=== PATIENT | male | born 1930 | race Caucasian/White ===

== ENCOUNTER → 2019-01-24 | Outpatient (CLI) | payer MEDICARE, OTHER ==
[2019-01-24 23:39] LABS: Basophils % (A) 0 %; Eosinophils % (A) 0 %; HGB 13.4 gm/dL (13.0-17.5); Lymphocytes # (A) 0.4 k/uL (1.0-4.8); Lymphocytes % (A) 6 %; MCH 32.4 pg (25.0-35.0); MCHC 32.6 g/dL (31.0-37.0); MCV 99.5 fL (80.0-100.0); Mean Platelet Volume 9.7; Monocytes # (A) 0.7 k/uL (0-1.0); Monocytes % (A) 10 %; Neutrophils # (A) 5.6 k/uL (1.3-7.7); Neutrophils % (A) 82 %; Platelet Count 149 k/uL (150-450); RBC 4.12 m/uL (4.30-5.90); RDW 13.2 % (11.5-15.5); WBC 6.8 k/uL (3.8-10.6)
[2019-01-25 00:11] LABS: Albumin 3.1 g/dL (3.5-5.0); Calcium 8.5 mg/dL (8.4-10.2); Potassium 4.5 mmol/L (3.5-5.1); Total Bilirubin 0.4 mg/dL (0.2-1.3); Total Protein 5.8 g/dL (6.3-8.2)
== END ==
LOC: LABPRL 23:03 → LABMARSNF 23:03 → EDSTATUS 23:05
PROVIDERS: ATTEND Internal Medicine
DX: J09.X2 Influenza due to identified novel influenza A virus with other respiratory manifestations (principal)
CPT/HCPCS: 36415; 80053; 85025

== ENCOUNTER 2020-12-08 12:59 | Inpatient (IN) | payer OTHER, MEDICARE ==
--- NOTE | 2020-12-08 13:09 | ED ---
General Adult HPI - General Stated complaint: DEVIN Time Seen by Provider: 12/08/20 12:59 Source: patient, RN notes reviewed, old records reviewed - History of Present Illness Initial comments: This is an 89-year-old male with a past medical history significant for heart failure atrial fibrillation schizophrenia kidney disease and recently diagnosed with COVID on November 16. Patient has had some difficulty breathing ever since he was diagnosed with codeine but over the last few hours he is gotten considerably worse according to staff the prison. Patient was given a breathing treatment and did bring his oxygenation up but they had to eventually increase his oxygenation from 3 L to 5 L to keep him in the 90s pulse ox. Patient himself denies any chest pain or difficulty breathing. Patient denies any cough. Patient denies any abdominal pain patient denies nausea vomiting diarrhea. - Related Data Home Medications Medication Instructions Recorded Confirmed Digoxin [Lanoxin] 0.125 mg PO DAILY@0600 04/01/14 12/08/20 Acetaminophen Tab [Tylenol] 650 mg PO Q4H PRN 12/08/20 12/08/20 Albuterol Sulfate [Ventolin HFA] 2 puff INHALATION RT-QID 12/08/20 12/08/20 Atorvastatin [Lipitor] 40 mg PO HS@209912/08/20 12/08/20 Bisoprolol [Zebeta] 5 mg PO HS@209912/08/20 12/08/20 Caldesene Powder 1 applic TOPICAL BID 12/08/20 12/08/20 Cyanocobalamin [Vitamin B-12] 500 mcg PO DAILY@0800 12/08/20 12/08/20 Dulaglutide [Trulicity] 0.75 mg SQ WE@0812/08/20 12/08/20 Ergocalciferol [Vitamin D2 (1250 1,250 mcg PO TU@0800 12/08/20 12/08/20 Mcg = 73691 Iu)] Furosemide [Lasix] 40 mg PO DAILY@0800 12/08/20 12/08/20 Glucerna Shake 120 ml PO TID@0800,1200,1700 12/08/20 12/08/20 Hydrocortisone Cream 1 applic TOPICAL Q12H PRN 12/08/20 12/08/20 [Hydrocortisone 2.5% Cream] INSULIN LISPRO (humaLOG) [humaLOG] 16 unit SQ TID@0800,1100,1700 12/08/20 12/08/20 INSULIN LISPRO (humaLOG) [humaLOG] See Protocol SQ ACHS 12/08/20 12/08/20 Insulin Glargine,Hum.rec.anlog 74 units SQ HS@209912/08/20 12/08/20 [Toumatt Solostar] Ipratropium-Albuterol Nebulize 3 ml INHALATION RT-QID 12/08/20 12/08/20 [Duoneb 0.5 mg-3 mg/3 ml Soln] Levofloxacin [Levaquin] 250 mg PO DAILY@1200 12/08/20 12/08/20 Linagliptin [Tradjenta] 5 mg PO DAILY@0800 12/08/20 12/08/20 Magnesium Hydroxide [Milk of 7,200 mg PO Q48H PRN 12/08/20 12/08/20 Magnesia Concentrate] Melatonin 1 mg PO HS@209912/08/20 12/08/20 Na Phos,M-B/Na Phos,Di-Ba [Fleet 133 ml RECTAL DAILY PRN 12/08/20 12/08/20 Adult] [place]-3 Acid Ethyl Esters [Lovaza] 2 gm PO BID@0800,1700 12/08/20 12/08/20 Ondansetron [Zofran] 4 mg PO Q6H PRN 12/08/20 12/08/20 Tamsulosin [Flomax] 0.4 mg PO DAILY@0800 12/08/20 12/08/20 Warfarin Sodium 4 mg PO MOWE@169912/08/20 12/08/20 Warfarin [Coumadin] 2 mg PO HS@17012/08/20 12/08/20 Warfarin [Coumadin] 3 mg PO SUTUTHFRSA@1700 12/08/20 12/08/20 bisacodyL [Bisacodyl] 10 mg RECTAL DAILY PRN 12/08/20 12/08/20 guaiFENesin [guaiFENesin Oral 200 mg PO Q4H PRN 12/08/20 12/08/20 Solution] lisinopriL [Zestril] 20 mg PO HS@212912/08/20 12/08/20 Allergies Allergy/AdvReac Type Severity Reaction Status Date / Time adhesive Allergy Unknown Verified 12/08/20 14:17 Review of Systems ROS Statement: Those systems with pertinent positive or pertinent negative responses have been documented in the HPI. ROS Other: All systems not noted in ROS Statement are negative. 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 History of Any Multi-Drug Resistant Organisms: None Reported Past Surgical History: Joint Replacement, Orthopedic Surgery Additional Past Surgical History / Comment(s): BILAT HIPS REPLACED, RIGHT KNEE ARTHROPLASTY Past Anesthesia/Blood Transfusion Reactions: No Reported Reaction Past Psychological History: No Psychological Hx Reported, Schizophrenia Additional Psychological History / Comment(s): 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 fib General Exam - General Exam Comments Initial Comments: GENERAL: Patient is well-developed and well-nourished. Patient is nontoxic and well-h ydrated and is in distress. ENT: Neck is soft and supple. No significant lymphadenopathy is noted. Oropharynx is clear. Moist mucous membranes. Neck has full range of motion without eliciting any pain. EYES: The sclera were anicteric and conjunctiva were pink and moist. Extraocular movements were intact and pupils were equal round and reactive to light. Eyelids were unremarkable. PULMONARY: Unlabored respirations. Patient has bilateral history wheezing.. Scattered crackles left base CARDIOVASCULAR: There is a regular rate and rhythm without any murmurs gallops or rubs. ABDOMEN: Soft and nontender with normal bowel sounds. SKIN: Skin is clear with no lesions or rashes and otherwise unremarkable. NEUROLOGIC: Patient is alert and oriented x3. Cranial nerves II through XII are grossly intact. Motor and sensory are also intact. Normal speech, volume and content. Symmetrical smile. MUSCULOSKELETAL: Normal extremities with adequate strength and full range of motion. LYMPHATICS: No significant lymphadenopathy is noted PSYCHIATRIC: Normal psychiatric evaluation. Course Vital Signs 12/08/20 12/08/20 12/08/20 13:05 13:50 14:45 Temperature 99.2 F Pulse Rate 96 85 78 Respiratory 24 24 22 Rate Blood Pressure 139/71 134/84 131/77 O2 Sat by Pulse 96 97 94 L Oximetry Medical Decision Making - Medical Decision Making EKG shows atrial fibrillation 95 bpm QRS is 94 QT interval 326 QTC is 49. Patient's EKG shows no ST segment elevation or depression. X-ray shows multiple areas of infiltrate consistent with COVID pneumonia I started the patient on Decadron and continue the Decadron on the floor. I admitted the patient after I spoke with Dr. Mike he agreed to accept the admission I wrote admitting orders I consulted Dr. Blank as well. - Lab Data Result diagrams: 12/08/20 13:16 12/08/20 13:16 Lab Results 12/08/20 12/08/20 12/08/20 Range/Units 13:16 13:16 13:16 WBC 7.1 (3.8-10.6) k/uL RBC 3.65 L (4.30-5.90) m/uL Hgb 12.1 L (13.0-17.5) gm/dL Hct 36.3 L (39.0-53.0) % MCV 99.5 (80.0-100.0) fL MCH 33.2 (25.0-35.0) pg MCHC 33.4 (31.0-37.0) g/dL RDW 13.9 (11.5-15.5) % Plt Count 175 (150-450) k/uL MPV 9.0 Neutrophils % 78 % Lymphocytes % 12 % Monocytes % 6 % Eosinophils % 2 % Basophils % 1 % Neutrophils # 5.6 (1.3-7.7) k/uL Lymphocytes # 0.8 L (1.0-4.8) k/uL Monocytes # 0.5 (0-1.0) k/uL Eosinophils # 0.1 (0-0.7) k/uL Basophils # 0.0 (0-0.2) k/uL PT (9.0-12.0) sec INR (<1.2) APTT D-Dimer (<0.60) mg/L FEU Sodium 138 (137-145) mmol/L Potassium 5.1 (3.5-5.1) mmol/L Chloride 110 H (98-107) mmol/L Carbon Dioxide 19 L (22-30) mmol/L Anion Gap 9 mmol/L BUN 53 H (9-20) mg/dL Creatinine 1.76 H (0.66-1.25) mg/dL Est GFR (CKD-EPI)AfAm 39 (>60 ml/min/1.73 sqM) Est GFR (CKD-EPI)NonAf 34 (>60 ml/min/1.73 sqM) Glucose 237 H (74-99) mg/dL Plasma Lactic Acid Alec 1.6 (0.7-2.0) mmol/L Calcium 7.5 L (8.4-10.2) mg/dL Total Bilirubin 0.8 (0.2-1.3) mg/dL AST 34 (17-59) U/L ALT 30 (4-49) U/L Alkaline Phosphatase 122 (38-126) U/L Troponin I (0.000-0.034) ng/mL NT-Pro-B Natriuret Pep pg/mL Total Protein 5.6 L (6.3-8.2) g/dL Albumin 2.3 L (3.5-5.0) g/dL 12/08/20 12/08/20 12/08/20 Range/Units 13:16 13:16 14:36 WBC (3.8-10.6) k/uL RBC (4.30-5.90) m/uL Hgb (13.0-17.5) gm/dL Hct (39.0-53.0) % MCV (80.0-100.0) fL MCH (25.0-35.0) pg MCHC (31.0-37.0) g/dL RDW (11.5-15.5) % Plt Count (150-450) k/uL MPV Neutrophils % % Lymphocytes % % Monocytes % % Eosinophils % % Basophils % % Neutrophils # (1.3-7.7) k/uL Lymphocytes # (1.0-4.8) k/uL Monocytes # (0-1.0) k/uL Eosinophils # (0-0.7) k/uL Basophils # (0-0.2) k/uL PT 34.0 H (9.0-12.0) sec INR 3.5 H (<1.2) APTT Cancelled D-Dimer >34.11 H (<0.60) mg/L FEU Sodium (137-145) mmol/L Potassium (3.5-5.1) mmol/L Chloride (98-107) mmol/L Carbon Dioxide (22-30) mmol/L Anion Gap mmol/L BUN (9-20) mg/dL Creatinine (0.66-1.25) mg/dL Est GFR (CKD-EPI)AfAm (>60 ml/min/1.73 sqM) Est GFR (CKD-EPI)NonAf (>60 ml/min/1.73 sqM) Glucose (74-99) mg/dL Plasma Lactic Acid Alec (0.7-2.0) mmol/L Calcium (8.4-10.2) mg/dL Total Bilirubin (0.2-1.3) mg/dL AST (17-59) U/L ALT (4-49) U/L Alkaline Phosphatase (38-126) U/L Troponin I 0.067 H* (0.000-0.034) ng/mL NT-Pro-B Natriuret Pep 3850 pg/mL Total Protein (6.3-8.2) g/dL Albumin (3.5-5.0) g/dL Disposition Clinical Impression: Pneumonia due to COVID-19 virus Disposition: ADMITTED IP TO THIS [facility] Referrals: Shvia Mike MD [Primary Care Provider] - 1-2 days Time of Disposition: 15:22
[2020-12-08 13:27] LABS: Basophils % (A) 1 %; Eosinophils # (A) 0.1 k/uL (0-0.7); Eosinophils % (A) 2 %; HCT 36.3 % (39.0-53.0); HGB 12.1 gm/dL (13.0-17.5); Lymphocytes # (A) 0.8 k/uL (1.0-4.8); Lymphocytes % (A) 12 %; MCH 33.2 pg (25.0-35.0); MCHC 33.4 g/dL (31.0-37.0); MCV 99.5 fL (80.0-100.0); Monocytes # (A) 0.5 k/uL (0-1.0); Monocytes % (A) 6 %; Neutrophils # (A) 5.6 k/uL (1.3-7.7); Neutrophils % (A) 78 %; Platelet Count 175 k/uL (150-450); RBC 3.65 m/uL (4.30-5.90); RDW 13.9 % (11.5-15.5); WBC 7.1 k/uL (3.8-10.6)
[2020-12-08 13:52] LABS: Albumin 2.3 g/dL (3.5-5.0); Calcium 7.5 mg/dL (8.4-10.2); Potassium 5.1 mmol/L (3.5-5.1); Total Bilirubin 0.8 mg/dL (0.2-1.3); Total Protein 5.6 g/dL (6.3-8.2)
--- NOTE | 2020-12-08 14:15 | XR ---
EXAMINATION TYPE: XR chest 2V DATE OF EXAM: 12/08/2020 COMPARISON: Chest x-ray April 04, 2014 HISTORY: Shortness of breath and weakness. TECHNIQUE: Frontal and lateral views of the chest are obtained. FINDINGS: There is cardiomegaly with atherosclerotic thoracic aorta. New bilateral multifocal opacit ies without pleural effusion or pneumothorax. Multilevel spurring in the spine redemonstrated. IMPRESSION: New bilateral multifocal acute opacities. Correlate for Covid-19 infection.
[2020-12-08] MEDS ORDERED: dexAMETHasone 2 MG TAB PO STA (15:00)
[2020-12-08 15:22] LABS: INR 3.5 (<1.2)
[2020-12-08 15:25] LABS: D-Dimer >34.11 mg/L FEU (<0.60)
[2020-12-08] MEDS ORDERED: SODIUM CHLORIDE 0.9% 1,000 ML IV ONE (15:29)
[2020-12-08 16:59] LABS: Glucose,Whole Blood 222 mg/dL (75-99)
[2020-12-08] MEDS ORDERED: ONDANSETRON 4 MG TAB PO PRN (17:52)
[2020-12-08] MEDS ORDERED: ACETAMINOPHEN TAB 325 MG TAB PO PRN (17:52)
[2020-12-08] MEDS ORDERED: MAGNESIUM HYDROXIDE 2,400 MG/10 ML CUP PO PRN (17:52)
[2020-12-08] MEDS ORDERED: guaiFENesin SYRUP 100MG/5ML 200 MG/10 ML CUP PO PRN (17:52)
[2020-12-08] MEDS ORDERED: bisacodyL 10 MG SUPP RECTAL PRN (17:52)
[2020-12-08 18:34] LABS: Digoxin 0.7 ng/mL
[2020-12-08] MEDS: MELATONIN 1 MG TAB PO SCH (19:57)
[2020-12-08] MEDS: BISOPROLOL 5 MG TAB PO SCH (19:57)
[2020-12-08] MEDS: ATORVASTATIN 40 MG TAB PO SCH (19:57)
[2020-12-08] MEDS: AZITHROMYCIN 250 MG in SODIUM CHLORIDE 0.9% 150 ML IVPB SCH (19:57)
[2020-12-08] MEDS: lisinopriL 20 MG TAB PO SCH (19:57)
[2020-12-08] MEDS ORDERED: IPRATROPIUM-ALBUTEROL 3 ML NEB INHALATION SCH (20:00)
[2020-12-08] MEDS: SODIUM CHLORIDE 0.45% 1,000 ML IV SCH (20:25)
[2020-12-08 20:26] LABS: Glucose,Whole Blood 314 mg/dL (75-99)
[2020-12-08] MEDS: INSULIN DETEMIR (LEVEMIR) 100 UNIT/ML SYR SQ SCH (20:31)
[2020-12-08] MEDS ORDERED: NON FORMULARY DRUG (Caldesene Powder 1 APPLIC) TOPICAL SCH (21:00)
[2020-12-08] MEDS: ALBUTEROL HFA INHALER INHALATION SCH (21:24)
[2020-12-09 05:51] LABS: Glucose,Whole Blood 236 mg/dL (75-99)
--- NOTE | 2020-12-09 05:56 | P.HPIM ---
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, vascular dementia, patient was diagnosed with COVID-19 at the senior care and he was taken care off with decadron, ABX along with vitamin supplement, was doing fine till recently when he developed to have increased shortness of breath, along with a drop in his O2 saturation, was seen by myself on Tuesday and he was doing relatively ok, his CXR showed bilateral pneumonia, was on Levaquin for possible secondary bacterial infection and his coumadin was on hold due to coagulopathy, today Nicole the Nurse Practitioner at [facility] saw him and she advised me to send him to the ER for worsening shortness of breath and worsening cough, patient was seen and evaluated in the ER at [facility], CXR showed new bilateral pneumonia suggestive of COVID-19, patient was placed on )2 support and was started on Zithromax 250 mg IVPB daily, and we will be maintaine d on Decadron 6 mg orally daily and we will obtain pulmonary consult, Review of Systems Constitutional: Reports fatigue, Reports night sweats, Reports weakness Eyes: bilateral blurred vision, bilateral decreased vision, denies bulging eye Ears: bilateral: decreased hearing Ears, nose, mouth and throat: Denies dysphagia, Denies neck lump, Denies sore throat Cardiovascular: Reports decreased exercise tolerance, Reports dyspnea on exertion, Reports irregular heart beat, Reports shortness of breath, Denies chest pain, Denies orthopnea, Denies rapid heart beat, Denies syncope Respiratory: Reports congestion, Reports cough, Reports cough with sputum, Reports dyspnea, Reports home oxygen, Reports respiratory infections, Reports wheezing, Denies sleep apnea, Denies snoring Gastrointestinal: Reports nausea, Denies abdominal pain, Denies belching, Denies BRBPR, Denies change in bowel habits, Denies diarrhea, Denies loss of appetite, Denies melena, Denies vomiting Genitourinary: Reports nocturia, Denies dysuria Musculoskeletal: Reports gait dysfunction, Reports morning stiffness Musculoskeletal: absent: ankle pain, ankle stiffness, elbow pain, elbow stiffness, elbow swelling, foot pain, foot stiffness, foot swelling, hand pain, hand stiffness, hand swelling, hip pain, hip stiffness, hip swelling, knee pain, knee stiffness, knee swelling, shoulder pain, shoulder stiffness, shoulder swelling, wrist pain, wrist stiffness, wrist swelling Integumentary: Denies pruritus, Denies rash Neurological: Reports confusion, Reports gait dysfunction, Reports memory loss, Reports weakness, Reports visual changes Psychiatric: Denies anxiety, Denies depression Endocrine: Denies fatigue, Denies weight change Past Medical History Past Medical History: Atrial Fibrillation, Atrial Flutter, Coronary Artery Disease (CAD), COPD, Diabetes Mellitus, GERD/Reflux, Hyperlipidemia, Hypertension, Osteoarthritis (OA), Prostate Disorder, Syncope Additional Past Medical History / Comment(s): 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, 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 History of Any Multi-Drug Resistant Organisms: None Reported Past Surgical History: Joint Replacement, Orthopedic Surgery Additional Past Surgical History / Comment(s): BILAT HIPS REPLACED, RIGHT KNEE ARTHROPLASTY Past Anesthesia/Blood Transfusion Reactions: No Reported Reaction Past Psychological History: No Psychological Hx Reported, Schizophrenia Additional Psychological History / Comment(s): 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 [place] Son(s) Family Medical History: Diabetes Mellitus Additional Family Medical History / Comment(s): A. fib Medications and Allergies Home Medications Medication Instructions Recorded Confirmed Type Digoxin [Lanoxin] 0.125 mg PO DAILY@0600 04/01/14 12/08/20 History Acetaminophen Tab [Tylenol] 650 mg PO Q4H PRN 12/08/20 12/08/20 History Albuterol Sulfate [Ventolin HFA] 2 puff INHALATION RT-QID 12/08/20 12/08/20 His tory Atorvastatin [Lipitor] 40 mg PO HS@209912/08/20 12/08/20 History Bisoprolol [Zebeta] 5 mg PO HS@209912/08/20 12/08/20 History Caldesene Powder 1 applic TOPICAL BID 12/08/20 12/08/20 History Cyanocobalamin [Vitamin B-12] 500 mcg PO DAILY@0800 12/08/20 12/08/20 History Dulaglutide [Trulicity] 0.75 mg SQ WE@0800 12/08/20 12/08/20 History Ergocalciferol [Vitamin D2 (1250 1,250 mcg PO TU@0800 12/08/20 12/08/20 History Mcg = 07121 Iu)] Furosemide [Lasix] 40 mg PO DAILY@0800 12/08/20 12/08/20 History Glucerna Shake 120 ml PO TID@0800,1200,1700 12/08/20 12/08/20 History Hydrocortisone Cream 1 applic TOPICAL Q12H PRN 12/08/20 12/08/20 History [Hydrocortisone 2.5% Cream] INSULIN LISPRO (humaLOG) [humaLOG] 16 unit SQ TID@0800,1100,1700 12/08/20 12/08/20 History INSULIN LISPRO (humaLOG) [humaLOG] See Protocol SQ ACHS 12/08/20 12/08/20 History Insulin Glargine,Hum.rec.anlog 74 units SQ HS@209912/08/20 12/08/20 History [Toujeo Solostar] Ipratropium-Albuterol Nebulize 3 ml INHALATION RT-QID 12/08/20 12/08/20 History [Duoneb 0.5 mg-3 mg/3 ml Soln] Levofloxacin [Levaquin] 250 mg PO DAILY@1200 12/08/20 12/08/20 History Linagliptin [Tradjenta] 5 mg PO DAILY@0800 12/08/20 12/08/20 History Magnesium Hydroxide [Milk of 7,200 mg PO Q48H PRN 12/08/20 12/08/20 History Magnesia Concentrate] Melatonin 1 mg PO HS@2100 12/08/20 12/08/20 History Na Phos,M-B/Na Phos,Di-Ba [Fleet 133 ml RECTAL DAILY PRN 12/08/20 12/08/20 History Adult] [place]-3 Acid Ethyl Esters [Lovaza] 2 gm PO BID@0800,1700 12/08/20 12/08/20 History Ondansetron [Zofran] 4 mg PO Q6H PRN 12/08/20 12/08/20 History Tamsulosin [Flomax] 0.4 mg PO DAILY@0800 12/08/20 12/08/20 History Warfarin Sodium 4 mg PO MOWE@1700 12/08/20 12/08/20 History Warfarin [Coumadin] 2 mg PO HS@1700 12/08/20 12/08/20 History Warfarin [Coumadin] 3 mg PO SUTUTHFRSA@1700 12/08/20 12/08/20 History bisacodyL [Bisacodyl] 10 mg RECTAL DAILY PRN 12/08/20 12/08/20 History guaiFENesin [guaiFENesin Oral 200 mg PO Q4H PRN 12/08/20 12/08/20 History Solution] lisinopriL [Zestril] 20 mg PO HS@2130 12/08/20 12/08/20 History Allergies Allergy/AdvReac Type Severity Reaction Status Date / Time adhesive Allergy Unknown Verified 12/08/20 14:17 Physical Exam Vitals: Vital Signs Temp Pulse Resp BP Pulse Ox 12/08/20 15:54 98.4 F 82 26 H 130/77 93 L 12/08/20 14:45 78 22 131/77 94 L 12/08/20 13:50 85 24 134/84 97 12/08/20 13:05 99.2 F 96 24 139/71 96 Intake and Output 12/08/20 12/08/20 12/08/20 06:59 14:59 22:59 Other: Weight 82.191 kg Physical examination: General: this is an 89 year old sitting up in bed with moderate respiratory distress. HEENT: head is atraumatic normocephalic pupils were equal round reactive to light and accommodations extra ocular muscle movements were intact. mucous membranes of the mouth are moist. Neck: supple no JVP, decreased carotid upstrokes bilaterally. Chest: decrease breath sounds at the bases with few ronchi, moderate expiratory wheezes, minimal intercostal retractions. Heart: first heart sound is depressed, second heart sound is normal irregularly irregular there is VALARIE 2/6 located in the left sternal border. Abdomen: soft non tender, non distended positive bowel sounds. Extremities: there is no edema no calf tenderness , DP +1 bilaterally. Neurologic examination: patient is awake alert and oriented X 2 CN II-XII are grossly intact, muscle power 4/5 in bilateral upper extremities and 3/5 in bilateral lower extremities, deep tendon reflexes were depressed. Results CBC & Chem 7: 12/08/20 13:16 12/08/20 13:16 Labs: Abnormal Lab Results - Last 24 Hours (Table) 12/08/20 12/08/20 12/08/20 Range/Units 13:16 13:16 13:16 RBC 3.65 L (4.30-5.90) m/uL Hgb 12.1 L (13.0-17.5) gm/dL Hct 36.3 L (39.0-53.0) % Lymphocytes # 0.8 L (1.0-4.8) k/uL PT (9.0-12.0) sec INR (<1.2) D-Dimer (<0.60) mg/L FEU Chloride 110 H (98-107) mmol/L Carbon Dioxide 19 L (22-30) mmol/L BUN 53 H (9-20) mg/dL Creatinine 1.76 H (0.66-1.25) mg/dL Glucose 237 H (74-99) mg/dL POC Glucose (mg/dL) (75-99) mg/dL Calcium 7.5 L (8.4-10.2) mg/dL Troponin I 0.067 H* (0.000-0.034) ng/mL Total Protein 5.6 L (6.3-8.2) g/dL Albumin 2.3 L (3.5-5.0) g/dL 12/08/20 12/08/20 Range/Units 14:36 16:57 RBC (4.30-5.90) m/uL Hgb (13.0-17.5) gm/dL Hct (39.0-53.0) % Lymphocytes # (1.0-4.8) k/uL PT 34.0 H (9.0-12.0) sec INR 3.5 H (<1.2) D-Dimer >34.11 H (<0.60) mg/L FEU Chloride (98-107) mmol/L Carbon Dioxide (22-30) mmol/L BUN (9-20) mg/dL Creatinine (0.66-1.25) mg/dL Glucose (74-99) mg/dL POC Glucose (mg/dL) 222 H (75-99) mg/dL Calcium (8.4-10.2) mg/dL Troponin I (0.000-0.034) ng/mL Total Protein (6.3-8.2) g/dL Albumin (3.5-5.0) g/dL Thrombosis Risk Factor Assmnt - DVT/VTE Prophylaxis DVT/VTE Prophylaxis: Pharmacologic Prophylaxis ordered, Mechanical Prophylaxis ordered Assessment and Plan Assessment: Assessment and Plan: 1. Acute hypoxic respiratory failure due to COVID-19 pneumonia. we will continue with Decadron 6 mg orally daily, Zithromax 250 mg IVPB daily, O2 support , Ventolin HFA 2 puffs inhalation Q 4 h, pulmonary consult. 2. Acute kidney injury on CKD 3a. we will start IVF 0.45 50 cc/h and we will hold lasix and digoxin, monitor CMP. 3. Hypertension and hypertensive cardiovascular disease. we will continue with Lisinopril 20 mg orally daily. 4. Hyperlipidemia. we will continue with Lipitor 40 mg orally daily. 5. Diabetes mellitus type 2. we will continue with Levemir at 35 units SC qhs and Novolog 4 units AC meals along with SSI, BGM AC and HS. 6. history of CVA and TIA with left carotid disease. we will continue with Lipitor 40 mg orally daily for secondary CVA prevention. 7. Atrial fibrillation/flutter. we will continue with monitoring, hold coumadin tonight and we will reevaluate in AM. 8. Coagulopaty due to coumadin use and interaction with Levaquin and now Zithromax. we will continue to monitor daily. 9. enlarged prostate. we will continue with Flomax 0.4 mg orally daily. 10. Vitamin d deficiency. we will continue with vitamin D supplement and we will check levels. 11. DVT prophylaxis. we will continue with Bilateral Knee-High Moshe Hose and we will resume coumadin in AM. 12. GI prophylaxis. we will continue with PPI. 13. Admits to inpatient. estimated length of stay 2 midnights. 14. No code.
[2020-12-09] MEDS ORDERED: NON FORMULARY DRUG (Glucerna Shake 1 CAN Liquid) PO SCH (08:00)
[2020-12-09] MEDS: INSULIN ASPART (NovoLOG) 100 UNIT/ML VIAL SQ SCH ×5 (08:05→21:04)
[2020-12-09] MEDS: CYANOCOBALAMIN 500 MCG TAB PO SCH (08:05)
[2020-12-09] MEDS: dexAMETHasone 2 MG TAB PO SCH (08:06)
[2020-12-09] MEDS: TAMSULOSIN 0.4 MG CAP.ER.24H PO SCH (08:06)
[2020-12-09] MEDS: ERGOCALCIFEROL 1,250 MCG (50,000 IU) CAPSULE PO SCH (08:06)
[2020-12-09] MEDS: AZITHROMYCIN 250 MG in SODIUM CHLORIDE 0.9% 150 ML IVPB SCH (08:06)
[2020-12-09] MEDS: LINAGLIPTIN 5 MG TABLET PO SCH (08:06)
[2020-12-09] MEDS: NON FORMULARY DRUG (Omega-3 Acid Ethyl Esters [Lovaza] 1 GM Capsule) PO SCH ×2 (08:14→16:44)
[2020-12-09 08:35] LABS: Basophils % (A) 0 %; Eosinophils % (A) 0 %; HCT 35.5 % (39.0-53.0); HGB 11.6 gm/dL (13.0-17.5); Hypochromasia Slight; Lymphocytes # (A) 0.9 k/uL (1.0-4.8); Lymphocytes % (A) 12 %; MCH 33.1 pg (25.0-35.0); MCHC 32.7 g/dL (31.0-37.0); MCV 101.1 fL (80.0-100.0); Macrocytosis Slight; Mean Platelet Volume 9.5; Monocytes # (A) 0.4 k/uL (0-1.0); Monocytes % (A) 6 %; Neutrophils # (A) 5.7 k/uL (1.3-7.7); Neutrophils % (A) 80 %; Platelet Count 180 k/uL (150-450); RBC 3.51 m/uL (4.30-5.90); RDW 13.9 % (11.5-15.5); WBC 7.2 k/uL (3.8-10.6)
[2020-12-09] MEDS: ALBUTEROL HFA INHALER INHALATION SCH ×4 (08:40→20:19)
[2020-12-09 08:44] LABS: D-Dimer >34.10 mg/L FEU (<0.60); INR 3.5 (<1.2)
[2020-12-09 08:45] LABS: Albumin 2.3 g/dL (3.5-5.0); Calcium 7.8 mg/dL (8.4-10.2); Potassium 5.1 mmol/L (3.5-5.1); Total Bilirubin 0.6 mg/dL (0.2-1.3); Total Protein 5.7 g/dL (6.3-8.2)
[2020-12-09 10:03] LABS: C Reactive Protein 257.5 mg/L (<10.0)
--- NOTE | 2020-12-09 10:31 | ECHOF ---
Referral Reason:CHF MEASUREMENTS -------- HEIGHT: 170.2 cm WEIGHT: 77.6 kg BP: RVIDd: 3.7 cm (< 3.3) IVSd: 1.3 cm (0.6 - 1.1) LVIDd: 4.3 cm (3.9 - 5.3) LVPWd: 1.5 cm (0.6 - 1.1) IVSs: 1.5 cm LVIDs: 3.6 cm LVPWs: 1.5 cm LA Diam: 5.0 cm (2.7 - 3.8) LAESV Index (A-L): 49.94 ml/m Ao Diam: 3.4 cm (2.0 - 3.7) MV EXCURSION: 18.683 mm (> 18.000) MV EF SLOPE: 90 mm/s (70 - 150) EPSS: 0.2 cm MV E Bernard: 0.64 m/s MV DecT: 154 ms MV A Bernard: 0.21 m/s MV E/A Ratio: 3.04 AV maxP.42 mmHg AV meanP.71 mmHg RAP: 5.00 mmHg RVSP: 56.15 mmHg FINDINGS -------- Sinus rhythm. Pt is positive Covid. The left ventricular size is normal. There is moderate concentric left ventricular hypertrophy. O verall left ventricular systolic function is low-normal with, an EF between 50 - 55 %. The right ventricle is mild to moderately enlarged. LA is severely dilated >40 ml/m2 The right atrial size is normal. There is mild aortic regurgitation. There is moderate aortic stenosis present. Peak/mean gradient across the Aortic Valve is 34.42mmHg / 19.71mmHg. The mitral valve leaflets are mildly thickened. [id number] mitral regurgitation is present. No regurgitation noted There is moderate pulmonary hypertension. The right ventricular systolic p ressure, as measured by Doppler, is 56.15mmHg. There is no pulmonic regurgitation present. The aortic root size is normal. There is no pericardial effusion. CONCLUSIONS -------- 1. The left ventricular size is normal. 2. There is moderate concentric left ventricular hypertrophy. 3. Overall left ventricular systolic function is low-normal with, an EF between 50 - 55 %. 4. The right ventricle is mild to moderately enlarged. 5. LA is severely dilated >40 ml/m2 6. The right atrial size is normal. 7. There is mild aortic regurgitation. 8. There is moderate aortic stenosis present. 9. Peak/mean gradient across the Aortic Valve is 34.42mmHg / 19.71mmHg. 10. The mitral valve leaflets are mildly thickened. 11. [id number] mitral regurgitation is present. 12. No regurgitation noted 13. There is moderate pulmonary hypertension. 14. The right ventricular systolic pressure, as measured by Doppler, is 56.15mmHg. 15. There is no pulmonic regurgitation present. 16. The aortic root size is normal. 17. There is no pericardial effusion. SUSPENDER CUTTER: Farnaz Garcia RDCS
[2020-12-09 11:10] LABS: Glucose,Whole Blood 147 mg/dL (75-99)
--- NOTE | 2020-12-09 14:27 | P.PN ---
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, vascular dementia, patient was diagnosed with COVID-19 at the senior care and he was taken care off with decadron, ABX along with vitamin supplement, was doing fine till recently when he developed to have increased shortness of breath, along with a drop in his O2 saturation, was seen by myself on Tuesday and he was doing relatively ok, his CXR showed bilateral pneumonia, was on Levaquin for possible secondary bacterial infection and his coumadin was on hold due to coagulopathy, today Nicole the Nurse Practitioner at [facility] saw him and she advised me to send him to the ER for worsening shortness of breath and worsening cough, patient was seen and evaluated in the ER at [facility], CXR showed new bilateral pneumonia suggestive of COVID-19, patient was placed on )2 support and was started on Zithromax 250 mg IVPB daily, and we will be maintained on Decadron 6 mg orally daily and we will obtain pulmonary consult, 12/09: Patient is currently pulse oxing 94-95% on 6 L high flow nasal cannula. He has been afebrile since admission, respiratory rate 24, heart rate 84. Echocardiogram reveals EF of 50-55% with moderate concentric left ventricular hypertrophy, moderate aortic stenosis, mild to moderate mitral regurgitation, moderate pulmonary hypertension. WBC 7.2, hemoglobin 11.6. CO2 21, BUN 59 and creatinine 1.74. Blood sugars have been elevated but most recent one is 147. NovoLog scale started. Patient hasn't seen and followed by pulmonary medicine, supplements added. Patient is continued on dexamethasone, azithromycin. INR is 3.5, pharmacy to dose Coumadin Objective - Vital Signs Vital signs: Vital Signs Temp 97.9 F 12/09/20 03:14 Pulse 83 12/09/20 03:14 Resp 26 H 12/09/20 03:14 BP 126/66 12/09/20 03:14 Pulse Ox 93 L 12/09/20 03:14 Intake & Output 12/08/20 12/08/20 12/09/20 06:59 18:59 06:59 Intake Total 100 Balance 100 Weight 82.191 kg 78 kg Intake: Oral 100 Other: Voiding Method Diaper # Voids 1 1 # Bowel Movements 1 - Exam Review of Systems Constitutional: Reports fatigue, Reports night sweats, Reports weakness Eyes: bilateral blurred vision, bilateral decreased vision, denies bulging eye Ears: bilateral: decreased hearing Ears, nose, mouth and throat: Denies dysphagia, Denies neck lump, Denies sore throat Cardiovascular: Reports decreased exercise tolerance, Reports dyspnea on exertion, Reports irregular heart beat, Reports shortness of breath, Denies chest pain, Denies orthopnea, Denies rapid heart beat, Denies syncope Respiratory: Reports congestion, Reports cough, Reports cough with sputum, Reports dyspnea, Reports home oxygen, Reports respiratory infections, Reports wheezing, Denies sleep apnea, Denies snoring Gastrointestinal: Reports nausea, Denies abdominal pain, Denies belching, Denies BRBPR, Denies change in bowel habits, Denies diarrhea, Denies loss of appetite, Denies melena, Denies vomiting Genitourinary: Reports nocturia, Denies dysuria Musculoskeletal: Reports gait dysfunction, Reports morning stiffness Musculoskeletal: absent: ankle pain, ankle stiffness, elbow pain, elbow stiffness, elbow swelling, foot pain, foot stiffness, foot swelling, hand pain, hand stiffness, hand swelling, hip pain, hip stiffness, hip swelling, knee pain, knee stiffness, knee swelling, shoulder pain, shoulder stiffness, shoulder swelling, wrist pain, wrist stiffness, wrist swelling Integumentary: Denies pruritus, Denies rash Neurological: Reports confusion, Reports gait dysfunction, Reports memory loss, Reports weakness, Reports visual changes Psychiatric: Denies anxiety, Denies depression Endocrine: Denies fatigue, Denies weight change Physical examination: General: this is an 89 year old sitting up in bed with moderate respiratory distress. HEENT: head is atraumatic normocephalic pupils were equal round reactive to light and accommodations extra ocular muscle movements were intact. mucous membranes of the mouth are moist. Neck: supple no JVP, decreased carotid upstrokes bilaterally. Chest: decrease breath sounds at the bases with few ronchi, moderate expiratory wheezes, minimal intercostal retractions. Heart: first heart sound is depressed, second heart sound is normal irregularly irregular there is VALARIE 2/6 located in the left sternal border. Abdomen: soft non tender, non distended positive bowel sounds. Extremities: there is no edema no calf tenderness , DP +1 bilaterally. Neurologic examination: patient is awake alert and oriented X 2 CN II-XII are grossly intact, muscle power 4/5 in bilateral upper extremities and 3/5 in bilateral lower extremities, deep tendon reflexes were depressed. - Labs CBC & Chem 7: 12/09/20 07:48 12/09/20 07:48 Labs: Abnormal Lab Results - Last 24 Hours (Table) 12/08/20 12/08/20 12/08/20 Range/Units 13:16 13:16 13:16 RBC 3.65 L (4.30-5.90) m/uL Hgb 12.1 L (13.0-17.5) gm/dL Hct 36.3 L (39.0-53.0) % Lymphocytes # 0.8 L (1.0-4.8) k/uL PT (9.0-12.0) sec INR (<1.2) D-Dimer (<0.60) mg/L FEU Chloride 110 H (98-107) mmol/L Carbon Dioxide 19 L (22-30) mmol/L BUN 53 H (9-20) mg/dL Creatinine 1.76 H (0.66-1.25) mg/dL Glucose 237 H (74-99) mg/dL POC Glucose (mg/dL) (75-99) mg/dL Calcium 7.5 L (8.4-10.2) mg/dL Troponin I 0.067 H* (0.000-0.034) ng/mL Total Protein 5.6 L (6.3-8.2) g/dL Albumin 2.3 L (3.5-5.0) g/dL 12/08/20 12/08/20 12/08/20 Range/Units 14:36 16:57 20:24 RBC (4.30-5.90) m/uL Hgb (13.0-17.5) gm/dL Hct (39.0-53.0) % Lymphocytes # (1.0-4.8) k/uL PT 34.0 H (9.0-12.0) sec INR 3.5 H (<1.2) D-Dimer >34.11 H (<0.60) mg/L FEU Chloride (98-107) mmol/L Carbon Dioxide (22-30) mmol/L BUN (9-20) mg/dL Creatinine (0.66-1.25) mg/dL Glucose (74-99) mg/dL POC Glucose (mg/dL) 222 H 314 H (75-99) mg/dL Calcium (8.4-10.2) mg/dL Troponin I (0.000-0.034) ng/mL Total Protein (6.3-8.2) g/dL Albumin (3.5-5.0) g/dL 12/09/20 Range/Units 05:49 RBC (4.30-5.90) m/uL Hgb (13.0-17.5) gm/dL Hct (39.0-53.0) % Lymphocytes # (1.0-4.8) k/uL PT (9.0-12.0) sec INR (<1.2) D-Dimer (<0.60) mg/L FEU Chloride (98-107) mmol/L Carbon Dioxide (22-30) mmol/L BUN (9-20) mg/dL Creatinine (0.66-1.25) mg/dL Glucose (74-99) mg/dL POC Glucose (mg/dL) 236 H (75-99) mg/dL Calcium (8.4-10.2) mg/dL Troponin I (0.000-0.034) ng/mL Total Protein (6.3-8.2) g/dL Albumin (3.5-5.0) g/dL Assessment and Plan Assessment: Assessment and Plan: 1. Acute hypoxic respiratory failure due to COVID-19 pneumonia. we will continue with Decadron 6 mg orally daily, Zithromax 250 mg IVPB daily, O2 support , Ventolin HFA 2 puffs inhalation Q 4 h, pulmonary consult. 2. Acute kidney injury on CKD 3a. we will start IVF 0.45 50 cc/h and we will hold lasix and digoxin, monitor CMP. 3. Hypertension and hypertensive cardiovascular disease. we will continue with Lisinopril 20 mg orally daily. 4. Hyperlipidemia. we will continue with Lipitor 40 mg orally daily. 5. Diabetes mellitus type 2. we will continue with Levemir at 35 units SC qhs and Novolog 4 units AC meals along with SSI, BGM AC and HS. 6. history of CVA and TIA with left carotid disease. we will continue with Lipitor 40 mg orally daily for secondary CVA prevention. 7. Atrial fibrillation/flutter. we will continue with monitoring, hold coumadin tonight and we will reevaluate in AM. 8. 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 we will continue to monitor daily. 9. enlarged prostate. we will continue with Flomax 0.4 mg orally daily. 10. Vitamin d deficiency. we will continue with vitamin D supplement and we will check levels. 11. DVT prophylaxis. we will continue with Bilateral Knee-High Moshe Hose and we will resume coumadin in AM. 12. GI prophylaxis. we will continue with PPI. 13. Discharge plan: back to [facility] .
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
[2020-12-09 16:45] LABS: Glucose,Whole Blood 227 mg/dL (75-99)
[2020-12-09] MEDS: SODIUM CHLORIDE 0.45% 1,000 ML IV SCH (17:09)
[2020-12-09] MEDS ORDERED: WARFARIN 0.5 MG TAB PO ONE (18:00)
[2020-12-09 20:13] LABS: Glucose,Whole Blood 232 mg/dL (75-99)
[2020-12-09] MEDS: BISOPROLOL 5 MG TAB PO SCH (21:03)
[2020-12-09] MEDS: lisinopriL 20 MG TAB PO SCH (21:03)
[2020-12-09] MEDS: MELATONIN 1 MG TAB PO SCH (21:03)
[2020-12-09] MEDS: INSULIN DETEMIR (LEVEMIR) 100 UNIT/ML SYR SQ SCH (21:03)
[2020-12-09] MEDS: ATORVASTATIN 40 MG TAB PO SCH (21:03)
[2020-12-10 06:14] LABS: Glucose,Whole Blood 161 mg/dL (75-99)
[2020-12-10] MEDS: INSULIN ASPART (NovoLOG) 100 UNIT/ML VIAL SQ SCH ×7 (06:32→21:21)
[2020-12-10 07:44] LABS: INR 4.6 (<1.2); Prothrombin Time 44.7 sec (9.0-12.0)
[2020-12-10] MEDS: NON FORMULARY DRUG (Omega-3 Acid Ethyl Esters [Lovaza] 1 GM Capsule) PO SCH ×2 (07:54→16:52)
[2020-12-10] MEDS: NON FORMULARY DRUG (Dulaglutide [Trulicity] 0.75 MG/0.5 ML Pen.Injctr) SQ SCH (07:54)
[2020-12-10] MEDS: ZINC SULFATE 220 MG CAP PO SCH (07:59)
[2020-12-10] MEDS: CHOLECALCIFEROL 25 MCG (1000 IU) TABLET PO SCH (07:59)
[2020-12-10] MEDS: LINAGLIPTIN 5 MG TABLET PO SCH (07:59)
[2020-12-10] MEDS: TAMSULOSIN 0.4 MG CAP.ER.24H PO SCH (07:59)
[2020-12-10] MEDS: dexAMETHasone 2 MG TAB PO SCH (07:59)
[2020-12-10] MEDS: CYANOCOBALAMIN 500 MCG TAB PO SCH (07:59)
[2020-12-10] MEDS: AZITHROMYCIN 250 MG in SODIUM CHLORIDE 0.9% 150 ML IVPB SCH (07:59)
[2020-12-10] MEDS: ASCORBIC ACID 500 MG TAB PO SCH (07:59)
[2020-12-10] MEDS: ALBUTEROL HFA INHALER INHALATION SCH ×4 (08:00→19:28)
[2020-12-10 11:51] LABS: Glucose,Whole Blood 295 mg/dL (75-99)
--- NOTE | 2020-12-10 12:09 | P.PN ---
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, vascular dementia, patient was [facility] with [facility] at the [facility] and he was taken care off with decadron, ABX along with vitamin supplement, was doing fine till recently when he developed to have increased shortness of breath, along with a drop in his O2 saturation, was seen by myself on Tuesday and he was doing relatively ok, his CXR showed bilateral pneumonia, was on Levaquin for possible secondary bacterial infection and his coumadin was on hold due to coagulopathy, today Nicole the Nurse Practitioner at [facility] saw him and she advised me to send him to the ER for worsening shortness of breath and worsening cough, patient was seen and evaluated in the ER at [facility], CXR showed new bilateral pneumonia suggestive of COVID-19, patient was placed on )2 support and was started on Zithromax 250 mg IVPB daily, and we will be maintained on Decadron 6 mg orally daily and we will obtain pulmonary consult, 12/09: Patient is currently pulse oxing 94-95% on 6 L high flow nasal cannula. He has been afebrile since admission, respiratory rate 24, heart rate 84. Echocardiogram reveals EF of 50-55% with moderate concentric left ventricular hypertrophy, moderate aortic stenosis, mild to moderate mitral regurgitation, moderate pulmonary hypertension. WBC 7.2, hemoglobin 11.6. CO2 21, BUN 59 and creatinine 1.74. Blood sugars have been elevated but most recent one is 147. NovoLog scale started. Patient hasn't seen and followed by pulmonary medicine, supplements added. Patient is continued on dexamethasone, azithromycin. INR is 3.5, pharmacy to dose Coumadin 2/3: Patient has been seen by cardiology and pulmonary medicine. He has been afebrile, currently pulse oxing 93% on 6 L high flow nasal cannula. Respiratory rate in the 20s. Heart rate 69. INR is 4.6. Glucose running between 161 and 295. Blood culture showing no growth after 24 hours. Patient does not have much appetite. He is dyspneic with very little activity. He continues to have cough. Objective - Vital Signs Vital signs: Vital Signs Temp 97.4 F L 12/10/20 07:55 Pulse 69 12/10/20 08:00 Resp 28 H 12/10/20 08:00 BP 156/78 12/10/20 07:55 Pulse Ox 93 L 12/10/20 07:55 Intake & Output 12/09/20 12/10/20 12/10/20 18:59 06:59 18:59 Intake Total 720 540 225 Balance 720 540 225 Weight 78 kg Intake: Intake, IV Titration 300 Amount Sodium Chloride 0.45% 1, 300 000 ml @ 50 mls/hr IV . Q20H [facility] Rx#:[id number] Oral 720 240 225 Other: Voiding Method Diaper Diaper Diaper # Voids 2 3 # Bowel Movements 1 - Exam Review of Systems Constitutional: Reports fatigue, Reports night sweats, Reports weakness Eyes: bilateral blurred vision, bilateral decreased vision, denies bulging eye Ears: bilateral: decreased hearing Ears, nose, mouth and throat: Denies dysphagia, Denies neck lump, Denies sore throat Cardiovascular: Reports decreased exercise tolerance, Reports dyspnea on exertion, Reports irregular heart beat, Reports shortness of breath, Denies chest pain, Denies orthopnea, Denies rapid heart beat, Denies syncope Respiratory: Reports congestion, Reports cough, Reports cough with sputum, Reports dyspnea, Reports home oxygen, Reports respiratory infections, Reports wheezing, Denies sleep apnea, Denies snoring Gastrointestinal: Reports nausea, Denies abdominal pain, Denies belching, Denies BRBPR, Denies change in bowel habits, Denies diarrhea, Denies loss of appetite, Denies melena, Denies vomiting Genitourinary: Reports nocturia, Denies dysuria Musculoskeletal: Reports gait dysfunction, Reports morning stiffness Musculoskeletal: absent: ankle pain, ankle stiffness, elbow pain, elbow stiffness, elbow swelling, foot pain, foot stiffness, foot swelling, hand pain, hand stiffness, hand swelling, hip pain, hip stiffness, hip swelling, knee pain, knee stiffness, knee swelling, shoulder pain, shoulder stiffness, shoulder swelling, wrist pain, wrist stiffness, wrist swelling Integumentary: Denies pruritus, Denies rash Neurological: Reports confusion, Reports gait dysfunction, Reports memory loss, Reports weakness, Reports visual changes Psychiatric: Denies anxiety, Denies depression Endocrine: Denies fatigue, Denies weight change Physical examination: General: this is an 89 year old sitting up in bed with moderate respiratory distress. HEENT: head is atraumatic normocephalic pupils were equal round reactive to light and accommodations extra ocular muscle movements were intact. mucous membranes of the mouth are moist. Neck: supple no JVP, decreased carotid upstrokes bilaterally. Chest: decrease breath sounds at the bases with few ronchi, moderate expiratory wheezes, minimal intercostal retractions. Heart: first heart sound is depressed, second heart sound is normal irregularly irregular there is VALARIE 2/6 located in the left sternal border. Abdomen: soft non tender, non distended positive bowel sounds. Extremities: there is no edema no calf tenderness , DP +1 bilaterally. Neurologic examination: patient is awake alert and oriented X 2 CN II-XII are grossly intact, muscle power 4/5 in bilateral upper extremities and 3/5 in bilateral lower extremities, deep tendon reflexes were depressed. - Labs CBC & Chem 7: 12/11/20 07:24 12/11/20 07:24 Labs: Abnormal Lab Results - Last 24 Hours (Table) 12/09/20 12/09/20 12/10/20 Range/Units 16:43 20:12 06:13 PT (9.0-12.0) sec INR (<1.2) POC Glucose (mg/dL) 227 H 232 H 161 H (75-99) mg/dL 12/10/20 Range/Units 07:08 PT 44.7 H (9.0-12.0) sec INR 4.6 H (<1.2) POC Glucose (mg/dL) (75-99) mg/dL Microbiology - Last 24 Hours (Table) 12/08/20 13:16 Blood Culture - Preliminary Blood No Growth after 24 hours Assessment and Plan Assessment: Assessment and Plan: 1. Acute hypoxic respiratory failure due to COVID-19 pneumonia. we will continue with Decadron changed to IV Solu-Medrol, Zithromax 250 mg IVPB daily, O2 support , Ventolin HFA 2 puffs inhalation Q 4 h, pulmonary consult. 2. Acute kidney injury on CKD 3a. we will start IVF 0.45 50 cc/h and we will hold lasix and digoxin, monitor CMP. 3. Hypertension and hypertensive cardiovascular disease. we will continue with Lisinopril 20 mg orally daily. 4. Hyperlipidemia. we will continue with Lipitor 40 mg orally daily. 5. Diabetes mellitus type 2. we will continue with Levemir at 35 units SC qhs and Novolog 4 units AC meals along with SSI, BGM AC and HS. 6. history of CVA and TIA with left carotid disease. we will continue with Lipitor 40 mg orally daily for secondary CVA prevention. 7. Atrial fibrillation/flutter. we will continue with monitoring, hold coumadin tonight and we will reevaluate in AM. 8. Coagulopathy due to coumadin use and interaction with Levaquin and now Zithromax. we will continue to monitor daily. 9. enlarged prostate. we will continue with Flomax 0.4 mg orally daily. 10. Vitamin d deficiency. we will continue with vitamin D supplement and we will check levels. 11. DVT prophylaxis. we will continue with Bilateral Knee-High Moshe Hose and we will resume coumadin in AM. 12. GI prophylaxis. we will continue with PPI. 13. Discharge plan: back to [facility] possibly by end of week.
[2020-12-10] MEDS: SODIUM CHLORIDE 0.45% 1,000 ML IV SCH (12:22)
--- NOTE | 2020-12-10 13:33 | P.PN ---
Subjective Progress Note Date: 12/10/20 Principal diagnosis: Hypoxemic respiratory failure. 89-year-old male with a history of multiple medical problems, including heart fire, and atrial fibrillation, and hyperlipidemia, and hypertension, who presents to the emergency department on 12/08/2020, at 1259, complaining of shortness of breath. He apparently tested positive for coronavirus, on November 16. Since that time, he's had progressive difficulty breathing. Apparently according to the care home staff, his oxygen requirements went up, and his saturations went down. For that reason, he was directed to the emergency department. He was seen there and admitted with a diagnosis of COVID 19 pneumonia. Currently, the patient's on O2 at 6 L. He has a history of atrial fibrillation, diabetes mellitus, hyperlipidemia, hypertension, congestive heart failure, osteoarthritis, syncope, carotid artery disease, and skin cancer. Currently, his white count is 7.2, hemoglobin 11.6, hematocrit 35.5, and platelet count 180,000. His PT was 34 with an INR of 3.5 and his d-dimer was greater than 34. Sodium was 139, potassium 5.1, chloride 110, CO2 21, anion gap 8, and a BUN was 59 and the creatinine was 1.74. The patient's C-reactive protein was 258, N-terminal proBNP was 3550, and his troponin was 0.067. Progress note dated 12/10/2020. 89-year-old male with history of multiple medical problems including CHF, atrial fibrillation, and hyperlipidemia, and hypertension, who presented to the emergency department on December 08. He came in complaining of shortness of breath. He did test positive for COVID 19 on November 16. Apparently he's had progressive worsening of his breathing at the care home, and his oxygen requirements went up, and his saturations went down. For that reason he was brought to the ER when he was admitted to the hospital. He is currently doing about the same today. He is on between 5-6 L by nasal cannula. He is not receiving any IV fluids. He is not a particularly good historian. It's hard to gauge how he is feeling today but he does look relatively stable. Currently, he is on 6 L nasal cannula and saturations are between 90 and 95%. Labs from today include a PT of 44.7, INR 4.6, and a glucose of 295. Chest x-ray from December 08 was reviewed. Medications are reviewed. Objective - Vital Signs Vital signs: Vital Signs Temp 97.6 F 12/10/20 12:19 Pulse 77 12/10/20 12:19 Resp 30 H 12/10/20 12:19 BP 154/67 12/10/20 12:19 Pulse Ox 90 L 12/10/20 12:19 Intake & Output 12/09/20 12/10/20 12/10/20 18:59 06:59 18:59 Intake Total 720 540 225 Balance 720 540 225 Weight 78 kg Intake: Intake, IV Titration 300 Amount Sodium Chloride 0.45% 1, 300 000 ml @ 50 mls/hr IV . Q20H [facility] Rx#:[id number] Oral 720 240 225 Other: Voiding Method Diaper Diaper Diaper # Voids 2 3 1 # Bowel Movements 1 - Exam No acute distress, oriented 3. No conversational dyspnea, use of accessory muscles, or audible wheezing. Patient on nasal cannula at 6 L. HEENT examination is grossly unremarkable. Mucous membranes are moist. Neck supple. Full range of motion. No adenopathy thyromegaly or neck vein distention. Cardiovascular examination reveals regular rhythm rate. S1-S2 normal. No S3 or S4. No discernible murmur noted. Heart rate is 77 bpm. Heart sounds are distant. Lungs reveal coarse bilateral rhonchi, heard both on inspiration and expiration. No crackles or wheezes. Her sounds equal bilaterally. Abdomen soft bowel sounds are heard. No masses or tenderness. Extremities are intact. No cyanosis or clubbing. Mild edema noted. Skin is without rash or lesion. Neurologic examination is brief but nonfocal. Patient appears a bit confused. - Labs CBC & Chem 7: 12/09/20 07:48 12/09/20 07:48 Labs: Abnormal Lab Results - Last 24 Hours (Table) 12/09/20 12/09/20 12/10/20 Range/Units 16:43 20:12 06:13 PT (9.0-12.0) sec INR (<1.2) POC Glucose (mg/dL) 227 H 232 H 161 H (75-99) mg/dL 12/10/20 12/10/20 Range/Units 07:08 11:50 PT 44.7 H (9.0-12.0) sec INR 4.6 H (<1.2) POC Glucose (mg/dL) 295 H (75-99) mg/dL Microbiology - Last 24 Hours (Table) 12/08/20 13:16 Blood Culture - Preliminary Blood No Growth after 24 hours Assessment and Plan Assessment: Acute hypoxemic respiratory failure, progressive, in a patient with a prior diagnosis of COVID 19 infection on November 16. History of atrial fibrillation. History of congestive heart failure. History of essential hypertension. History of hyperlipidemia. History of osteoarthritis. History of syncope. History of carotid artery disease. History of skin cancer. History of multiple other medical problems and comorbidities. Mild dementia. Coumadin induced coagulopathy. Plan: Plan dated 12/09/2020. Currently, the patient's on oxygen at 6 L by nasal cannula. He seems reasonably comfortable on that amount of oxygen. Today we had vitamin C, vitamin D3, and zinc to his regimen. In addition, the patient was placed on Decadron, 6 mg orally a day, and she'll take that for 10 days. The patient was also placed on azithromycin by his primary care provider. The patient is not a candidate for remdesivir or tocilizumab. The patient's d-dimer is quite elevated but the patient is already on warfarin, and his PT and INR are both prolonged. The patient should also have Pepcid and melatonin, and one might consider colchicine 0.5 mg twice a day. We will continue to follow and make additional recommendations. Follow-up chest x-ray should be done. Pro-inflammatory markers can be done every third day. The patient is a no code patient. That is appropriate given his age. Plan dated 12/10/2020. Currently, the patient remains on appropriate medications including vitamin C, vitamin D3, and zinc. In addition, the patient is on Decadron 6 mg a day. The patient appears about the same. His oxygen requirements have not changed. He is currently on 6 L. No additional new labs today other than what was mentioned. His Coumadin dose needs to be reduced and his Coumadin need to be held for 1 day. I'll let the primary service deal with that. From the pulmonary standpoint, the patient is stable. The patient remains on 6 L. He does not appear to be clinically short of breath. He is not complaining of his breathing. Time with Patient: Less than 30
--- NOTE | 2020-12-10 13:48 | P.PN ---
Subjective Progress Note Date: 12/10/20 Principal diagnosis: Hypoxemic respiratory failure. 89-year-old male with a history of multiple medical problems, including heart fire, and atrial fibrillation, and hyperlipidemia, and hypertension, who presents to the emergency department on 12/08/2020, at 1259, complaining of shortness of breath. He apparently tested positive for coronavirus, on November 16. Since that time, he's had progressive difficulty breathing. Apparently according to the long-term staff, his oxygen requirements went up, and his saturations went down. For that reason, he was directed to the emergency department. He was seen there and admitted with a diagnosis of COVID 19 pneumonia. Currently, the patient's on O2 at 6 L. He has a history of atrial fibrillation, diabetes mellitus, hyperlipidemia, hypertension, congestive heart failure, osteoarthritis, syncope, carotid artery disease, and skin cancer. Currently, his white count is 7.2, hemoglobin 11.6, hematocrit 35.5, and platelet count 180,000. His PT was 34 with an INR of 3.5 and his d-dimer was greater than 34. Sodium was 139, potassium 5.1, chloride 110, CO2 21, anion gap 8, and a BUN was 59 and the creatinine was 1.74. The patient's C-reactive protein was 258, N-terminal proBNP was 3550, and his troponin was 0.067. Progress note dated 12/10/2020. 89-year-old male with history of multiple medical problems including CHF, atrial fibrillation, and hyperlipidemia, and hypertension, who presented to the emergency department on December 08. He came in complaining of shortness of breath. He did test positive for COVID 19 on November 16. Apparently he's had progressive worsening of his breathing at the long-term, and his oxygen requirements went up, and his saturations went down. For that reason he was brought to the ER when he was admitted to the hospital. He is currently doing about the same today. He is on between 5-6 L by nasal cannula. He is not receiving any IV fluids. He is not a particularly good historian. It's hard to gauge how he is feeling today but he does look relatively stable. Currently, he is on 6 L nasal cannula and saturations are between 90 and 95%. Labs from today include a PT of 44.7, INR 4.6, and a glucose of 295. Chest x-ray from December 08 was reviewed. Medications are reviewed. Objective - Vital Signs Vital signs: Vital Signs Temp 97.6 F 12/10/20 12:19 Pulse 77 12/10/20 12:19 Resp 30 H 12/10/20 12:19 BP 154/67 12/10/20 12:19 Pulse Ox 90 L 12/10/20 12:19 Intake & Output 12/09/20 12/10/20 12/10/20 18:59 06:59 18:59 Intake Total 720 540 225 Balance 720 540 225 Weight 78 kg Intake: Intake, IV Titration 300 Amount Sodium Chloride 0.45% 1, 300 000 ml @ 50 mls/hr IV . Q20H [facility] Rx#:[id number] Oral 720 240 225 Other: Voiding Method Diaper Diaper Diaper # Voids 2 3 1 # Bowel Movements 1 - Labs CBC & Chem 7: 12/09/20 07:48 12/09/20 07:48 Labs: Abnormal Lab Results - Last 24 Hours (Table) 12/09/20 12/09/20 12/10/20 Range/Units 16:43 20:12 06:13 PT (9.0-12.0) sec INR (<1.2) POC Glucose (mg/dL) 227 H 232 H 161 H (75-99) mg/dL 12/10/20 12/10/20 Range/Units 07:08 11:50 PT 44.7 H (9.0-12.0) sec INR 4.6 H (<1.2) POC Glucose (mg/dL) 295 H (75-99) mg/dL Microbiology - Last 24 Hours (Table) 12/08/20 13:16 Blood Culture - Preliminary Blood No Growth after 24 hours
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
[2020-12-10] MEDS ORDERED: FUROSEMIDE 10 MG/ML 4 ML VIAL IV STA (14:37)
--- NOTE | 2020-12-10 15:26 | XR ---
EXAMINATION TYPE: XR chest 1V portable DATE OF EXAM: 12/10/2020 HISTORY: Shortness of breath. COMPARISON: 12/08/2020 TECHNIQUE: Single view of the chest is submitted. FINDINGS: Demonstrated are scattered senescent parenchymal change. Scattered bilateral airspace infiltrates persist without significant change allowing for differences in technique. The heart is stable. Hilar and mediastinal structures are within normal limits. Degenerative changes are seen of the dorsal spine. IMPRESSION: 1. Scattered bilateral airspace infiltrates persist without significant change allowing for differen dieudonne in technique.
[2020-12-10 16:59] LABS: Glucose,Whole Blood 252 mg/dL (75-99)
[2020-12-10] MEDS ORDERED: WARFARIN 0.5 MG TAB PO ONE (18:00)
[2020-12-10 21:00] LABS: Glucose,Whole Blood 240 mg/dL (75-99)
[2020-12-10] MEDS: INSULIN DETEMIR (LEVEMIR) 100 UNIT/ML SYR SQ SCH (21:21)
[2020-12-10] MEDS: lisinopriL 20 MG TAB PO SCH (21:22)
[2020-12-10] MEDS: ATORVASTATIN 40 MG TAB PO SCH (21:22)
[2020-12-10] MEDS: BISOPROLOL 5 MG TAB PO SCH (21:22)
[2020-12-10] MEDS: MELATONIN 1 MG TAB PO SCH (21:22)
[2020-12-11] MEDS: SODIUM CHLORIDE 0.45% 1,000 ML IV SCH (06:01)
[2020-12-11 06:18] LABS: Glucose,Whole Blood 106 mg/dL (75-99)
[2020-12-11] MEDS: INSULIN ASPART (NovoLOG) 100 UNIT/ML VIAL SQ SCH ×7 (06:33→20:49)
[2020-12-11] MEDS: ALBUTEROL HFA INHALER INHALATION SCH ×4 (07:22→19:58)
[2020-12-11 08:29] LABS: INR 3.7 (<1.2); Prothrombin Time 35.1 sec (9.0-12.0)
[2020-12-11 08:39] LABS: Albumin 2.7 g/dL (3.5-5.0); Calcium 8.1 mg/dL (8.4-10.2); Potassium 5.1 mmol/L (3.5-5.1); Total Protein 6.5 g/dL (6.3-8.2)
[2020-12-11 09:03] LABS: Basophils # (A) 0.1 k/uL (0-0.2); Basophils % (A) 1 %; Eosinophils % (A) 0 %; HCT 38.4 % (39.0-53.0); HGB 12.2 gm/dL (13.0-17.5); Hypochromasia Slight; Lymphocytes # (A) 1.1 k/uL (1.0-4.8); Lymphocytes % (A) 10 %; MCH 32.3 pg (25.0-35.0); MCHC 31.9 g/dL (31.0-37.0); MCV 101.2 fL (80.0-100.0); Macrocytosis Slight; Mean Platelet Volume 9.5; Monocytes # (A) 1.1 k/uL (0-1.0); Monocytes % (A) 9 %; Neutrophils % (A) 78 %; Platelet Count 197 k/uL (150-450); RDW 14.5 % (11.5-15.5); WBC 11.5 k/uL (3.8-10.6)
[2020-12-11 10:40] LABS: Poikilocytosis (M) Present
[2020-12-11] MEDS: NON FORMULARY DRUG (Omega-3 Acid Ethyl Esters [Lovaza] 1 GM Capsule) PO SCH ×2 (10:58→13:52)
[2020-12-11] MEDS: ZINC SULFATE 220 MG CAP PO SCH (11:03)
[2020-12-11] MEDS: ASCORBIC ACID 500 MG TAB PO SCH (11:03)
[2020-12-11] MEDS: CYANOCOBALAMIN 500 MCG TAB PO SCH (11:04)
[2020-12-11] MEDS: LINAGLIPTIN 5 MG TABLET PO SCH (11:04)
[2020-12-11] MEDS: CHOLECALCIFEROL 25 MCG (1000 IU) TABLET PO SCH (11:04)
[2020-12-11] MEDS: AZITHROMYCIN 250 MG TAB PO SCH (11:04)
[2020-12-11] MEDS: TAMSULOSIN 0.4 MG CAP.ER.24H PO SCH (11:04)
[2020-12-11] MEDS: dexAMETHasone 2 MG TAB PO SCH (11:04)
[2020-12-11 11:51] LABS: Glucose,Whole Blood 135 mg/dL (75-99)
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
--- NOTE | 2020-12-11 13:57 | CDI ---
Documentation Clarification Form Date: 12/11/2020 01:10:19 PM From: Janeen Anthony RN, CCDS Admit Date: 12/08/2020 03:29:00 PM Patient Name: Kain Miller Visit Number: [id number] Discharge Date: ATTENTION: The Clinical Documentation Specialists (CDI) and [facility] Coding Staff appreciate your assistance in clarifying documentation. Please respond to the clarification below the line at the bottom and electronically sign. The CDI & [facility] Coding staff will review the response and follow-up if needed. Please note: Queries are made part of the Legal Health Record. If you have any questions, please contact the author of this message via ITS. Dr. Chris Beach CHF is documented as history of congestive heart failure with ongoing treatment. Please clarify the acuity and type of CHF if known History/Risk Factors: Atrial Fibrillation, Hypertension, Diabetes mellitus, CHF Clinical Indicators: 89-year-old male present to ED on 12/08 with difficulty breathing and resent history of Covid 19 on November 16. 12/05 VS/Pulse OX: 139/71 96 24 99.2 12/08 BNP: 3850 12/09 Echocardiogram Results: Overall left ventricular systolic function is low- normal with, an EF between 50-55 % There is moderate pulmonary hypertension 12/08 Chest X Ray: multiple areas of infiltrate consistent with Covid pneumonia Treatment: 12/08 Lasix 40 MG Daily (hold) 2 Lasix 40 MG IV Once In your professional opinion, can you please clarify the acuity and type of CHF if known? Systolic Heart Failure: Acute Chronic Acute on Chronic Diastolic Heart Failure: Acute Chronic Acute on Chronic Systolic & Diastolic Heart Failure: Acute Chronic Acute on Chronic Heart Failure Unable to Determine Other, please specify (Last Revision: February 2018) MTDD
--- NOTE | 2020-12-11 14:22 | P.PN ---
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, vascular dementia, patient was diagnosed with [facility]-19 at the [facility] and he was taken care off with decadron, ABX along with vitamin supplement, was doing fine till recently when he developed to have increased shortness of breath, along with a drop in his O2 saturation, was seen by myself on Tuesday and he was doing relatively ok, his CXR showed bilateral pneumonia, was on Levaquin for possible secondary bacterial infection and his coumadin was on hold due to coagulopathy, today Nciole the Nurse Practitioner at [facility] saw him and she advised me to send him to the ER for worsening shortness of breath and worsening cough, patient was seen and evaluated in the ER at [facility], CXR showed new bilateral pneumonia suggestive of COVID-19, patient was placed on )2 support and was started on Zithromax 250 mg IVPB daily, and we will be maintained on Decadron 6 mg orally daily and we will obtain pulmonary consult, 12/09: Patient is currently pulse oxing 94-95% on 6 L high flow nasal cannula. He has been afebrile since admission, respiratory rate 24, heart rate 84. Echocardiogram reveals EF of 50-55% with moderate concentric left ventricular hypertrophy, moderate aortic stenosis, mild to moderate mitral regurgitation, moderate pulmonary hypertension. WBC 7.2, hemoglobin 11.6. CO2 21, BUN 59 and creatinine 1.74. Blood sugars have been elevated but most recent one is 147. NovoLog scale started. Patient hasn't seen and followed by pulmonary medicine, supplements added. Patient is continued on dexamethasone, azithromycin. INR is 3.5, pharmacy to dose Coumadin /3: Patient has been seen by cardiology and pulmonary medicine. He has been afebrile, currently pulse oxing 93% on 6 L high flow nasal cannula. Respiratory rate in the 20s. Heart rate 69. INR is 4.6. Glucose running between 161 and 295. Blood culture showing no growth after 24 hours. Patient does not have much appetite. He is dyspneic with very little activity. He continues to have cough. 12/11: Decadron was transitioned to IV Solu-Medrol yesterday by pulmonary medicine. Patient continues to have dyspnea and cough. Pulse ox 90-91% on 10 L nasal cannula. He has been afebrile, heart rate 80, respiratory rate 24. CBC 1 1.5, hemoglobin 12.2. INR 3.7. BUN 67 and creatinine 1.6. Blood sugars ran between 94 and 240. Blood culture is no growth. Y Objective - Vital Signs Vital signs: Vital Signs Temp 96.3 F L 12/11/20 08:00 Pulse 80 12/11/20 08:00 Resp 24 12/11/20 08:00 BP 128/65 12/11/20 08:00 Pulse Ox 91 L 12/11/20 08:00 Intake & Output 12/10/20 12/11/20 12/11/20 18:59 06:59 18:59 Intake Total 405 472 Balance 405 472 Weight 78.5 kg Intake: Oral 405 472 Other: Voiding Method Diaper Diaper Diaper # Voids 2 2 1 # Bowel Movements 1 - Exam Review of Systems Constitutional: Reports fatigue, Reports night sweats, Reports weakness Eyes: bilateral blurred vision, bilateral decreased vision, denies bulging eye Ears: bilateral: decreased hearing Ears, nose, mouth and throat: Denies dysphagia, Denies neck lump, Denies sore throat Cardiovascular: Reports decreased exercise tolerance, Reports dyspnea on exertion, Reports irregular heart beat, Reports shortness of breath, Denies chest pain, Denies orthopnea, Denies rapid heart beat, Denies syncope Respiratory: Reports congestion, Reports cough, Reports cough with sputum, Reports dyspnea, Reports home oxygen, Reports respiratory infections, Reports wheezing, Denies sleep apnea, Denies snoring Gastrointestinal: Reports nausea, Denies abdominal pain, Denies belching, Denies BRBPR, Denies change in bowel habits, Denies diarrhea, Denies loss of appetite, Denies melena, Denies vomiting Genitourinary: Reports nocturia, Denies dysuria Musculoskeletal: Reports gait dysfunction, Reports morning stiffness Musculoskeletal: absent: ankle pain, ankle stiffness, elbow pain, elbow stiffness, elbow swelling, foot pain, foot stiffness, foot swelling, hand pain, hand stiffness, hand swelling, hip pain, hip stiffness, hip swelling, knee pain, knee stiffness, knee swelling, shoulder pain, shoulder stiffness, shoulder swelling, wrist pain, wrist stiffness, wrist swelling Integumentary: Denies pruritus, Denies rash Neurological: Reports confusion, Reports gait dysfunction, Reports memory loss, Reports weakness, Reports visual changes Psychiatric: Denies anxiety, Denies depression Endocrine: Denies fatigue, Denies weight change Physical examination: General: this is an 89 year old sitting up in bed with moderate respiratory distress. HEENT: head is atraumatic normocephalic pupils were equal round reactive to light and accommodations extra ocular muscle movements were intact. mucous membranes of the mouth are moist. Neck: supple no JVP, decreased carotid upstrokes bilaterally. Chest: decrease breath sounds at the bases with few ronchi, moderate expiratory wheezes, minimal intercostal retractions. Heart: first heart sound is depressed, second heart sound is normal irregularly irregular there is VALARIE 2/6 located in the left sternal border. Abdomen: soft non tender, non distended positive bowel sounds. Extremities: there is no edema no calf tenderness , DP +1 bilaterally. Neurologic examination: patient is awake alert and oriented X 2 CN II-XII are grossly intact, muscle power 4/5 in bilateral upper extremities and 3/5 in bilateral lower extremities, deep tendon reflexes were depressed. - Labs CBC & Chem 7: 12/11/20 07:24 12/11/20 07:24 Labs: Abnormal Lab Results - Last 24 Hours (Table) 12/10/20 12/10/20 12/11/20 Range/Units 16:58 20:56 05:58 WBC (3.8-10.6) k/uL RBC (4.30-5.90) m/uL Hgb (13.0-17.5) gm/dL Hct (39.0-53.0) % MCV (80.0-100.0) fL Neutrophils # (1.3-7.7) k/uL Monocytes # (0-1.0) k/uL PT (9.0-12.0) sec INR (<1.2) Chloride (98-107) mmol/L BUN (9-20) mg/dL Creatinine (0.66-1.25) mg/dL POC Glucose (mg/dL) 252 H 240 H 106 H (75-99) mg/dL Calcium (8.4-10.2) mg/dL Albumin (3.5-5.0) g/dL 12/11/20 12/11/20 12/11/20 Range/Units 07:24 07:24 07:24 WBC 11.5 H (3.8-10.6) k/uL RBC 3.80 L (4.30-5.90) m/uL Hgb 12.2 L (13.0-17.5) gm/dL Hct 38.4 L (39.0-53.0) % MCV 101.2 H (80.0-100.0) fL Neutrophils # 9.0 H (1.3-7.7) k/uL Monocytes # 1.1 H (0-1.0) k/uL PT 35.1 H (9.0-12.0) sec INR 3.7 H (<1.2) Chloride 108 H (98-107) mmol/L BUN 67 H (9-20) mg/dL Creatinine 1.60 H (0.66-1.25) mg/dL POC Glucose (mg/dL) (75-99) mg/dL Calcium 8.1 L (8.4-10.2) mg/dL Albumin 2.7 L (3.5-5.0) g/dL 12/11/20 Range/Units 11:50 WBC (3.8-10.6) k/uL RBC (4.30-5.90) m/uL Hgb (13.0-17.5) gm/dL Hct (39.0-53.0) % MCV (80.0-100.0) fL Neutrophils # (1.3-7.7) k/uL Monocytes # (0-1.0) k/uL PT (9.0-12.0) sec INR (<1.2) Chloride (98-107) mmol/L BUN (9-20) mg/dL Creatinine (0.66-1.25) mg/dL POC Glucose (mg/dL) 135 H (75-99) mg/dL Calcium (8.4-10.2) mg/dL Albumin (3.5-5.0) g/dL Microbiology - Last 24 Hours (Table) 12/08/20 13:16 Blood Culture - Preliminary Blood No Growth after 48 hours Assessment and Plan Assessment: Assessment and Plan: 1. Acute hypoxic respiratory failure due to COVID-19 pneumonia. we will continue with Decadron changed to IV Solu-Medrol 60 mg IV every 6 hours, Zithromax 250 mg IVPB daily, O2 support , Ventolin HFA 2 puffs inhalation Q 4 h, pulmonary consult. 2. Acute kidney injury on CKD 3a. we will start IVF 0.45 50 cc/h and we will hold lasix and digoxin, monitor CMP. 3. Hypertension and hypertensive cardiovascular disease. we will continue with Lisinopril 20 mg orally daily. 4. Hyperlipidemia. we will continue with Lipitor 40 mg orally daily. 5. Diabetes mellitus type 2 uncontrolled with hyperglycemia secondary to steroids. Continue Levemir increased to 42 units at bedtime, NovoLog scheduled 7 units 3 times daily with meals, NovoLog scale before meals and at bedtime, Cogentin 5 mg daily. 6. history of CVA and TIA with left carotid disease. we will continue with Lipitor 40 mg orally daily for secondary CVA prevention. 7. Atrial fibrillation/flutter. we will continue with monitoring, hold coumadin tonight and we will reevaluate in AM. 8. Coagulopathy due to coumadin use and interaction with Levaquin and now Zithromax. we will continue to monitor daily. 9. enlarged prostate. we will continue with Flomax 0.4 mg orally daily. 10. Vitamin d deficiency. we will continue with vitamin D supplement and we will check levels. 11. DVT prophylaxis. we will continue with Bilateral Knee-High Moshe Hose and we will resume coumadin in AM. 12. GI prophylaxis. we will continue with PPI. 13. Discharge plan: back to [facility] possibly by Tuesday most likely
[2020-12-11 17:10] LABS: Glucose,Whole Blood 207 mg/dL (75-99)
[2020-12-11] MEDS: methylPREDNISolone SOD SUCCI 125 MG/2 ML VIAL IV SCH ×2 (17:37→23:40)
[2020-12-11] MEDS ORDERED: WARFARIN 0.5 MG TAB PO ONE (18:00)
[2020-12-11 20:33] LABS: Glucose,Whole Blood 233 mg/dL (75-99)
[2020-12-11] MEDS: BISOPROLOL 5 MG TAB PO SCH (20:48)
[2020-12-11] MEDS: COLCHICINE 0.6 MG EACH PO SCH (20:48)
[2020-12-11] MEDS: ATORVASTATIN 40 MG TAB PO SCH (20:48)
[2020-12-11] MEDS: INSULIN DETEMIR (LEVEMIR) 100 UNIT/ML SYR SQ SCH (20:49)
[2020-12-11] MEDS: FAMOTIDINE 20 MG TAB PO SCH (20:49)
[2020-12-11] MEDS: MELATONIN 1 MG TAB PO SCH (20:49)
[2020-12-11] MEDS: lisinopriL 20 MG TAB PO SCH (20:49)
[2020-12-12] MEDS: SODIUM CHLORIDE 0.45% 1,000 ML IV SCH ×2 (02:00→23:25)
[2020-12-12] MEDS: methylPREDNISolone SOD SUCCI 125 MG/2 ML VIAL IV SCH ×4 (05:52→23:54)
[2020-12-12 06:34] LABS: Glucose,Whole Blood 225 mg/dL (75-99)
[2020-12-12] MEDS: INSULIN ASPART (NovoLOG) 100 UNIT/ML VIAL SQ SCH ×7 (06:38→20:37)
[2020-12-12] MEDS: ALBUTEROL HFA INHALER INHALATION SCH ×4 (07:33→19:33)
[2020-12-12 07:50] LABS: INR 2.4 (<1.2)
[2020-12-12] MEDS: COLCHICINE 0.6 MG EACH PO SCH ×2 (07:54→21:10)
[2020-12-12] MEDS: AZITHROMYCIN 250 MG TAB PO SCH (07:55)
[2020-12-12] MEDS: ZINC SULFATE 220 MG CAP PO SCH (07:55)
[2020-12-12] MEDS: TAMSULOSIN 0.4 MG CAP.ER.24H PO SCH (07:55)
[2020-12-12] MEDS: LINAGLIPTIN 5 MG TABLET PO SCH (07:55)
[2020-12-12] MEDS: NON FORMULARY DRUG (Omega-3 Acid Ethyl Esters [Lovaza] 1 GM Capsule) PO SCH ×2 (07:55→11:55)
[2020-12-12] MEDS: ASCORBIC ACID 500 MG TAB PO SCH (07:55)
[2020-12-12] MEDS: CHOLECALCIFEROL 25 MCG (1000 IU) TABLET PO SCH (07:55)
[2020-12-12] MEDS: CYANOCOBALAMIN 500 MCG TAB PO SCH (07:55)
[2020-12-12] MEDS ORDERED: FUROSEMIDE 10 MG/ML 4 ML VIAL IV STA (08:35)
--- NOTE | 2020-12-12 09:36 | XR ---
EXAMINATION TYPE: XR chest 1V portable DATE OF EXAM: 12/12/2020 CLINICAL HISTORY: Difficulty breathing progress study. TECHNIQUE: Single AP portable upright view of the chest is obtained. COMPARISON: Chest x-ray from 2 days earlier and older studies. FINDINGS: There is persistent cardiomegaly with atherosclerotic thoracic aorta. Persistent bilateral multifocal opacities . Multilevel spurring in the spine redemonstrated. IMPRESSION: Persistent bilateral multifocal acute opacities suspicious for Covid-19 infection. No si gnificant change from most recent study.
[2020-12-12 11:52] LABS: Glucose,Whole Blood 193 mg/dL (75-99)
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
--- NOTE | 2020-12-12 14:25 | CDI ---
Documentation Clarification Form Date: 12/12/2020 02:00:08 PM From: Janeen Anthony RN, CCDS Admit Date: 12/08/2020 03:29:00 PM Patient Name: Kain Miller Visit Number: [id number] Discharge Date: ATTENTION: The Clinical Documentation Specialists (CDI) and [facility] Coding Staff appreciate your assistance in clarifying documentation. Please respond to the clarification below the line at the bottom and electronically sign. The CDI & [facility] Coding staff will review the response and follow-up if needed. Please note: Queries are made part of the Legal Health Record. If you have any questions, please contact the author of this message via ITS. Dr. Shiva Mike Atrial Flutter is documented in the past medical history, H/P and subsequent progress notes. Please further specify the type of atrial flutter if known. History/Risk factors: Atrial Fibrillation, Atrial Flutter, Coronary Artery Disease, Hypertension, Diabetes mellitus Clinical Indicators: 89-year-old male present to ED on 12/08 with difficulty in breathing since he was diagnosed with COVID November 16. Cardiovascular exam in ED found a regular rate and rhythm without any murmurs gallops or rubs. 12/08 EKG/telemetry: shows atrial fibrillation 95 bpm. Patient's EKG shows no ST segment elevation or depression 12/09 ECHO: Overall left ventricular systolic function is low-normal with, an EF between 50-55 % Treatment: Monitor PT/INR Coumadin (12/08-12/11 hold Per Pharmacy Protocol) 5 mg po once @ 1800 12/12 2 Cardiology consult: Chronic persistent atrial fibrillation on Coumadin. Supra-therapeutic INR. In your professional opinion, in order to capture the severity of condition; can you please clarify the type of Atrial Flutter if known? Typical/Type I Atypical/Type II Other, please specify Unable to determine (Last Revision: February 2018) Chronic persistent atrial fibrillation MTDD
--- NOTE | 2020-12-12 15:15 | P.PN ---
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, vascular dementia, patient was diagnosed with COVID-19 at the detention and he was taken care off with decadron, ABX along with vitamin supplement, was doing fine till recently when he developed to have increased shortness of breath, along with a drop in his O2 saturation, was seen by myself on Tuesday and he was doing relatively ok, his CXR showed bilateral pneumonia, was on Levaquin for possible secondary bacterial infection and his coumadin was on hold due to coagulopathy, today Nicole the Nurse Practitioner at [facility] saw him and she advised me to send him to the ER for worsening shortness of breath and worsening cough, patient was seen and evaluated in the ER at [facility], CXR showed new bilateral pneumonia suggestive of COVID-19, patient was placed on )2 support and was started on Zithromax 250 mg IVPB daily, and we will be maintained on Decadron 6 mg orally daily and we will obtain pulmonary consult, 12/09: Patient is currently pulse oxing 94-95% on 6 L high flow nasal cannula. He has been afebrile since admission, respiratory rate 24, heart rate 84. Echocardiogram reveals EF of 50-55% with moderate concentric left ventricular hypertrophy, moderate aortic stenosis, mild to moderate mitral regurgitation, moderate pulmonary hypertension. WBC 7.2, hemoglobin 11.6. CO2 21, BUN 59 and creatinine 1.74. Blood sugars have been elevated but most recent one is 147. NovoLog scale started. Patient hasn't seen and followed by pulmonary medicine, supplements added. Patient is continued on dexamethasone, azithromycin. INR is 3.5, pharmacy to dose Coumadin /3: Patient has been seen by cardiology and pulmonary medicine. He has been afebrile, currently pulse oxing 93% on 6 L high flow nasal cannula. Respiratory rate in the 20s. Heart rate 69. INR is 4.6. Glucose running between 161 and 295. Blood culture showing no growth after 24 hours. Patient does not have much appetite. He is dyspneic with very little activity. He continues to have cough. 12/11: Decadron was transitioned to IV Solu-Medrol yesterday by pulmonary medicine. Patient continues to have dyspnea and cough. Pulse ox 90-91% on 10 L nasal cannula. He has been afebrile, heart rate 80, respiratory rate 24. CBC 1 1.5, hemoglobin 12.2. INR 3.7. BUN 67 and creatinine 1.6. Blood sugars ran between 94 and 240. Blood culture is no growth. 12/12: Patient is awake and alert. He is currently on 10 L nasal cannula with pulse ox of 91%. He has been afebrile, heart rate 77, blood pressure 139/74. telemetry monitor atrial fibrillation and controlled rate. INR is 2.4. Pharmacy is dosing Coumadin. Blood sugars are 193-225. Levemir will be increased to 45 units at bedtime. Patient denies any fever or chills. He continues to have cough. Patient experiences shortness of breath with minimal activity. Patient is continued on IV Solu-Medrol 60 mg every 6 hours, azithromycin and supplement for Covid 19. Objective - Vital Signs Vital signs: Vital Signs Temp 97.9 F 12/12/20 11:18 Pulse 77 12/12/20 11:19 Resp 22 12/12/20 11:19 BP 139/74 12/12/20 11:18 Pulse Ox 91 L 12/12/20 11:18 Intake & Output 12/11/20 12/12/20 12/12/20 18:59 06:59 18:59 Intake Total 772 Balance 772 Weight 77 kg Intake: Oral 772 Other: Voiding Method Diaper Diaper Diaper # Voids 1 1 - Exam Review of Systems Constitutional: Reports fatigue, Reports night sweats, Reports weakness Eyes: bilateral blurred vision, bilateral decreased vision, denies bulging eye Ears: bilateral: decreased hearing Ears, nose, mouth and throat: Denies dysphagia, Denies neck lump, Denies sore throat Cardiovascular: Reports decreased exercise tolerance, Reports dyspnea on exertion, Reports irregular heart beat, Reports shortness of breath, Denies chest pain, Denies orthopnea, Denies rapid heart beat, Denies syncope Respiratory: Reports congestion, Reports cough, Reports cough with sputum, Reports dyspnea, Reports home oxygen, Reports respiratory infections, Reports wheezing, Denies sleep apnea, Denies snoring Gastrointestinal: Reports nausea, Denies abdominal pain, Denies belching, Denies BRBPR, Denies change in bowel habits, Denies diarrhea, Denies loss of appetite, Denies melena, Denies vomiting Genitourinary: Reports nocturia, Denies dysuria Musculoskeletal: Reports gait dysfunction, Reports morning stiffness Musculoskeletal: absent: ankle pain, ankle stiffness, elbow pain, elbow stiffness, elbow swelling, foot pain, foot stiffness, foot swelling, hand pain, hand stiffness, hand swelling, hip pain, hip stiffness, hip swelling, knee pain, knee stiffness, knee swelling, shoulder pain, shoulder stiffness, shoulder swelling, wrist pain, wrist stiffness, wrist swelling Integumentary: Denies pruritus, Denies rash Neurological: Reports confusion, Reports gait dysfunction, Reports memory loss, Reports weakness, Reports visual changes Psychiatric: Denies anxiety, Denies depression Endocrine: Denies fatigue, Denies weight change Physical examination: General: this is an 89 year old sitting up in bed with moderate respiratory distress. HEENT: head is atraumatic normocephalic pupils were equal round reactive to light and accommodations extra ocular muscle movements were intact. mucous membranes of the mouth are moist. Neck: supple no JVP, decreased carotid upstrokes bilaterally. Chest: decrease breath sounds at the bases with few ronchi, moderate expiratory wheezes, minimal intercostal retractions. Heart: first heart sound is depressed, second heart sound is normal irregularly irregular there is VALARIE 2/6 located in the left sternal border. Abdomen: soft non tender, non distended positive bowel sounds. Extremities: there is no edema no calf tenderness , DP +1 bilaterally. Neurologic examination: patient is awake alert and oriented X 2 CN II-XII are grossly intact, muscle power 4/5 in bilateral upper extremities and 3/5 in bilateral lower extremities, deep tendon reflexes were depressed. - Labs CBC & Chem 7: 12/11/20 07:24 12/11/20 07:24 Labs: Abnormal Lab Results - Last 24 Hours (Table) 12/11/20 12/11/20 12/12/20 Range/Units 17:08 20:31 06:33 PT (9.0-12.0) sec INR (<1.2) POC Glucose (mg/dL) 207 H 233 H 225 H (75-99) mg/dL 12/12/20 12/12/20 Range/Units 07:07 11:37 PT 23.0 H (9.0-12.0) sec INR 2.4 H (<1.2) POC Glucose (mg/dL) 193 H (75-99) mg/dL Microbiology - Last 24 Hours (Table) 12/08/20 13:16 Blood Culture - Preliminary Blood No Growth after 72 hours Assessment and Plan Assessment: Assessment and Plan: 1. Acute hypoxic respiratory failure due to COVID-19 pneumonia. we will continue IV Solu-Medrol 60 mg IV every 6 hours, Zithromax 250 mg IVPB daily, O2 support , Ventolin HFA 2 puffs inhalation Q 4 h, pulmonary consult. 2. Acute kidney injury on CKD 3a. we will start IVF 0.45 50 cc/h and we will hold lasix and digoxin, monitor CMP. One dose of IV Lasix today. 3. Hypertension and hypertensive cardiovascular disease. we will continue with Lisinopril 20 mg orally daily. 4. Hyperlipidemia. we will continue with Lipitor 40 mg orally daily. 5. Diabetes mellitus type 2 uncontrolled with hyperglycemia secondary to steroids. Continue Levemir increased to 45 units at bedtime, continue NovoLog scheduled 7 units 3 times daily with meals, continue NovoLog scale before meals and at bedtime, Tradjenta 5 mg daily. 6. history of CVA and TIA with left carotid disease. we will continue with Lipitor 40 mg orally daily for secondary CVA prevention. 7. Atrial fibrillation/flutter. we will continue with monitoring, hold coumadin tonight and we will reevaluate in AM. 8. Coagulopathy due to coumadin use and interaction with Levaquin and now Zith romax. we will continue to monitor daily, pharmacy dosing Coumadin. 9. enlarged prostate. we will continue with Flomax 0.4 mg orally daily. 10. Vitamin d deficiency. we will continue with vitamin D supplement and we will check levels. 11. DVT prophylaxis. we will continue with Bilateral Knee-High Moshe Hose and we will resume coumadin in AM. 12. GI prophylaxis. we will continue with PPI. 13. Discharge plan: back to [facility] possibly by Tuesday
[2020-12-12 17:13] LABS: Glucose,Whole Blood 312 mg/dL (75-99)
[2020-12-12] MEDS ORDERED: WARFARIN 5 MG TAB PO ONE (18:00)
[2020-12-12 20:21] LABS: Glucose,Whole Blood 376 mg/dL (75-99)
[2020-12-12] MEDS: INSULIN DETEMIR (LEVEMIR) 100 UNIT/ML SYR SQ SCH (20:36)
[2020-12-12] MEDS: ATORVASTATIN 40 MG TAB PO SCH (20:36)
[2020-12-12] MEDS: lisinopriL 20 MG TAB PO SCH (20:36)
[2020-12-12] MEDS: FAMOTIDINE 20 MG TAB PO SCH (20:36)
[2020-12-12] MEDS: MELATONIN 1 MG TAB PO SCH (21:11)
[2020-12-12] MEDS: BISOPROLOL 5 MG TAB PO SCH (21:11)
[2020-12-13 06:18] LABS: Glucose,Whole Blood 223 mg/dL (75-99)
[2020-12-13] MEDS: methylPREDNISolone SOD SUCCI 125 MG/2 ML VIAL IV SCH ×4 (06:30→23:28)
[2020-12-13] MEDS: INSULIN ASPART (NovoLOG) 100 UNIT/ML VIAL SQ SCH ×7 (06:30→21:08)
[2020-12-13] MEDS: ALBUTEROL HFA INHALER INHALATION SCH ×4 (08:37→19:53)
[2020-12-13] MEDS: TAMSULOSIN 0.4 MG CAP.ER.24H PO SCH (08:47)
[2020-12-13] MEDS: ZINC SULFATE 220 MG CAP PO SCH (08:47)
[2020-12-13] MEDS: CHOLECALCIFEROL 25 MCG (1000 IU) TABLET PO SCH (08:47)
[2020-12-13] MEDS: CYANOCOBALAMIN 500 MCG TAB PO SCH (08:47)
[2020-12-13] MEDS: LINAGLIPTIN 5 MG TABLET PO SCH (08:47)
[2020-12-13] MEDS: ASCORBIC ACID 500 MG TAB PO SCH (08:47)
[2020-12-13] MEDS: NON FORMULARY DRUG (Omega-3 Acid Ethyl Esters [Lovaza] 1 GM Capsule) PO SCH ×2 (08:48→17:47)
[2020-12-13] MEDS: AZITHROMYCIN 250 MG TAB PO SCH (08:49)
[2020-12-13] MEDS: COLCHICINE 0.6 MG EACH PO SCH ×2 (08:49→21:09)
[2020-12-13 09:34] LABS: Prothrombin Time 28.7 sec (9.0-12.0)
[2020-12-13 12:08] LABS: Glucose,Whole Blood 287 mg/dL (75-99)
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
[2020-12-13 17:24] LABS: Glucose,Whole Blood 272 mg/dL (75-99)
[2020-12-13] MEDS: SODIUM CHLORIDE 0.45% 1,000 ML IV SCH (17:49)
[2020-12-13] MEDS ORDERED: WARFARIN 0.5 MG TAB PO ONE (18:00)
--- NOTE | 2020-12-13 19:17 | PN ---
PROGRESS NOTE DATE OF SERVICE: 12/13/2020. I am covering for Dr. Mike. This 89-year-old gentleman who was admitted with acute hypoxic respiratory failure secondary to Covid-19 pneumonia, is being closely monitored. The patient is on multiple medications including steroids and antibiotics. Patient also had kidney injury and multiple medical problems. The patient continues to be stuporous at this time. Most recent chest x-ray which was personally reviewed by me showed extensive bilateral lesions, right more than the left. Multiple consultants are following the patient closely, including Dr. Beach. Patient is on 15 L nasal cannula. INR is also 3. PAST MEDICAL HISTORY: Reviewed. REVIEW OF SYSTEMS: Could not be taken. CURRENT MEDICATIONS: Reviewed. PHYSICAL EXAM: Patient is alert and oriented x1. Pulse 71, blood pressure 123/61, respiration 20, temperature 97.2, pulse ox 94% on 15 L. HEENT: Conjunctivae normal. NECK: No JVD. CARDIOVASCULAR: S1, S2 muffled. RESPIRATION: Breath sounds diminished in the bases. A few scattered rhonchi and crackles. ABDOMEN: Soft, nontender. LEGS: No edema. No swelling. NERVOUS SYSTEM: No focal deficits. LABS: At this time shows INR is 3. WBC 11.5, hemoglobin 12.2 and creatinine is 1.60. Albumin is 2.7. ASSESSMENT: 1. Acute hypoxic respiratory failure secondary to bilateral COVID-19 pneumonia viral pneumonia with acute hypoxic respiratory failure. 2. Acute kidney injury with chronic kidney disease, stage 3 baseline. 3. Hypertension, hypertensive cardiovascular disease. 4. Hyperlipidemia. 5. Diabetes mellitus type 2 uncontrolled with hyperglycemia. 6. History of cerebrovascular accident, transient ischemic attack. 7. Atrial fibrillation. 8. Coagulopathy secondary to Coumadin. 9. Enlarged prostate. 10.Vitamin D deficiency. 11.Deep vein thrombosis prophylaxis. 12.Gastrointestinal prophylaxis. 13.Gait dysfunction. RECOMMENDATIONS AND DISCUSSION: I recommend to continue current medications, management and symptomatic treatment. Otherwise, at this time, I recommend repeat labs tomorrow to evaluate the renal function. Monitor PT, INR closely. Continue the rest of medications including IV steroids and continue to closely follow with Pulmonary. Guarded prognosis. Further recommendations to follow. MMODL / IJN: [id number] /
[2020-12-13] MEDS: INSULIN DETEMIR (LEVEMIR) 100 UNIT/ML SYR SQ SCH (21:08)
[2020-12-13] MEDS: ATORVASTATIN 40 MG TAB PO SCH (21:09)
[2020-12-13] MEDS: lisinopriL 20 MG TAB PO SCH (21:09)
[2020-12-13] MEDS: FAMOTIDINE 20 MG TAB PO SCH (21:09)
[2020-12-13] MEDS: BISOPROLOL 5 MG TAB PO SCH (21:09)
[2020-12-13] MEDS: MELATONIN 1 MG TAB PO SCH (21:09)
[2020-12-13 21:10] LABS: Glucose,Whole Blood 297 mg/dL (75-99)
[2020-12-14] MEDS: methylPREDNISolone SOD SUCCI 125 MG/2 ML VIAL IV SCH ×4 (05:53→23:57)
[2020-12-14 06:36] LABS: Glucose,Whole Blood 272 mg/dL (75-99)
[2020-12-14] MEDS: INSULIN ASPART (NovoLOG) 100 UNIT/ML VIAL SQ SCH ×7 (06:38→21:26)
[2020-12-14 07:49] LABS: Albumin 2.6 g/dL (3.5-5.0); Calcium 7.4 mg/dL (8.4-10.2); Magnesium 2.6 mg/dL (1.6-2.3); Potassium 5.4 mmol/L (3.5-5.1); Total Bilirubin 0.8 mg/dL (0.2-1.3); Total Protein 6.1 g/dL (6.3-8.2)
[2020-12-14 07:50] LABS: HGB 13.4 gm/dL (13.0-17.5); MCH 33.8 pg (25.0-35.0); MCHC 33.6 g/dL (31.0-37.0); MCV 100.8 fL (80.0-100.0); Macrocytosis Slight; Mean Platelet Volume 9.9; Platelet Count 145 k/uL (150-450); RBC 3.97 m/uL (4.30-5.90); RDW 14.9 % (11.5-15.5); WBC 16.5 k/uL (3.8-10.6)
[2020-12-14] MEDS: ALBUTEROL HFA INHALER INHALATION SCH ×4 (08:28→20:12)
[2020-12-14 08:30] LABS: Band Neutrophils % 6 %; Lymphocytes # (M) 1.16 k/uL (1.0-4.8); Monocytes # (M) 0.33 k/uL (0-1.0); Neutrophils % (M) 85 %; Nucleated Red Blood Cells 0 /100 WBC (0-0); Total Cells Counted 100
[2020-12-14] MEDS: CHOLECALCIFEROL 25 MCG (1000 IU) TABLET PO SCH (09:21)
[2020-12-14] MEDS: NON FORMULARY DRUG (Omega-3 Acid Ethyl Esters [Lovaza] 1 GM Capsule) PO SCH ×2 (09:21→17:21)
[2020-12-14] MEDS: COLCHICINE 0.6 MG EACH PO SCH ×2 (09:22→21:25)
[2020-12-14] MEDS: ASCORBIC ACID 500 MG TAB PO SCH (09:22)
[2020-12-14] MEDS: CYANOCOBALAMIN 500 MCG TAB PO SCH (09:22)
[2020-12-14] MEDS: LINAGLIPTIN 5 MG TABLET PO SCH (09:22)
[2020-12-14] MEDS: AZITHROMYCIN 250 MG TAB PO SCH (09:22)
[2020-12-14] MEDS: TAMSULOSIN 0.4 MG CAP.ER.24H PO SCH (09:22)
[2020-12-14] MEDS: ZINC SULFATE 220 MG CAP PO SCH (09:22)
[2020-12-14] MEDS: SODIUM CHLORIDE 0.45% 1,000 ML IV SCH (09:24)
[2020-12-14 11:51] LABS: INR 7.2 (<1.2)
[2020-12-14 12:22] LABS: Glucose,Whole Blood 314 mg/dL (75-99)
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
[2020-12-14 13:01] VITALS: BMI 26.9
--- NOTE | 2020-12-14 14:21 | PN ---
PROGRESS NOTE DATE OF SERVICE: 12/14/2020 I am covering for Dr. Mike. This 89-year-old gentleman admitted with acute hypoxic respiratory failure secondary to acute bilateral Covid 19 pneumonia is being closely monitored. Most recent chest x-ray showed bilateral lesions, reviewed personally by me. Multiple consultants are following the patient including Dr. Beach. The patient is on 15 L of oxygen, saturating at 91. Patient continues to be confused. Past medical history reviewed. REVIEW OF SYSTEMS: Could not be taken. CURRENT MEDICATIONS: Reviewed and include: Tylenol, Ventolin, vitamin C, Lipitor, Zithromax, Keflex, Zebeta, vitamin D2, doses reviewed. PHYSICAL EXAM: Patient is alert, oriented x3. Pulse 67, blood pressure 135/64, respiration 20, temperature 98.1, pulse ox 96% on 15 L. HEENT: Conjunctivae normal. NECK: No JVD. RESPIRATORY SYSTEM: Breath sounds diminished at the bases. Bilateral scattered rhonchi and crackles. ABDOMEN: Soft, nontender. LEGS are no edema, no swelling. NERVOUS SYSTEM: No focal deficits. LABS: WBC 16.5. INR 1.2. Sodium 130. Potassium 5.5, creatinine is 1.48. ASSESSMENT: 1. Acute hypoxic respiratory failure secondary to bilateral COVID-19 pneumonia, viral pneumonia with acute hypoxic respiratory failure. 2. Acute kidney injury with chronic kidney disease stage 3 baseline. 3. Hypertension, hypertensive cardiovascular disease. 4. Coumadin coagulopathy. 5. Hyperlipidemia. 6. Diabetes mellitus type 2, uncontrolled, hyperglycemia. 7. History of cerebrovascular accident/transient ischemic attack. 8. Atrial fibrillation. 9. Enlarged prostate. 10.Vitamin D deficiency. 11.Deep vein thrombosis prophylaxis. 12.Gastrointestinal prophylaxis. 13.Gait dysfunction. RECOMMENDATIONS AND DISCUSSION: I recommend to continue current medications, continue to monitor. Symptomatic treatment. Otherwise, we will monitor the patient closely. We will hold the Coumadin now. Continue to monitor and otherwise continue with bronchodilators. The labs will be repeated tomorrow. Dr. Mike will follow tomorrow. Prognosis guarded. MMODL / IJN: [id number] /
[2020-12-14 17:16] LABS: Glucose,Whole Blood 240 mg/dL (75-99)
[2020-12-14] MEDS ORDERED: WARFARIN 0.5 MG TAB PO ONE (18:00)
[2020-12-14 20:22] LABS: Glucose,Whole Blood 205 mg/dL (75-99)
[2020-12-14] MEDS: lisinopriL 20 MG TAB PO SCH (21:25)
[2020-12-14] MEDS: BISOPROLOL 5 MG TAB PO SCH (21:25)
[2020-12-14] MEDS: ATORVASTATIN 40 MG TAB PO SCH (21:25)
[2020-12-14] MEDS: MELATONIN 1 MG TAB PO SCH (21:25)
[2020-12-14] MEDS: INSULIN DETEMIR (LEVEMIR) 100 UNIT/ML SYR SQ SCH (21:25)
[2020-12-14] MEDS: FAMOTIDINE 20 MG TAB PO SCH (21:25)
[2020-12-15] MEDS: SODIUM CHLORIDE 0.45% 1,000 ML IV SCH ×3 (03:59→23:45)
[2020-12-15] MEDS: methylPREDNISolone SOD SUCCI 125 MG/2 ML VIAL IV SCH ×4 (05:45→23:45)
[2020-12-15 06:36] LABS: Glucose,Whole Blood 139 mg/dL (75-99)
[2020-12-15] MEDS: INSULIN ASPART (NovoLOG) 100 UNIT/ML VIAL SQ SCH ×7 (06:57→21:05)
[2020-12-15 07:18] LABS: Prothrombin Time 83.9 sec (9.0-12.0)
[2020-12-15] MEDS: ALBUTEROL HFA INHALER INHALATION SCH ×4 (07:26→20:46)
[2020-12-15 07:44] LABS: INR 8.6 (<1.2)
[2020-12-15] MEDS ORDERED: PHYTONADIONE 5 MG in SODIUM CHLORIDE 0.9% 50 ML IVPB STA (07:57)
[2020-12-15 08:03] LABS: Basophils # (A) 0.1 k/uL (0-0.2); Basophils % (A) 0 %; Eosinophils % (A) 0 %; HCT 37.9 % (39.0-53.0); HGB 12.6 gm/dL (13.0-17.5); Lymphocytes # (A) 1.1 k/uL (1.0-4.8); Lymphocytes % (A) 6 %; MCH 33.5 pg (25.0-35.0); MCHC 33.2 g/dL (31.0-37.0); MCV 100.7 fL (80.0-100.0); Macrocytosis Slight; Monocytes # (A) 0.9 k/uL (0-1.0); Monocytes % (A) 5 %; Neutrophils # (A) 16.8 k/uL (1.3-7.7); Neutrophils % (A) 89 %; Platelet Count 128 k/uL (150-450); RBC 3.77 m/uL (4.30-5.90); RDW 14.8 % (11.5-15.5)
[2020-12-15 08:29] LABS: Albumin 2.8 g/dL (3.5-5.0); Calcium 7.5 mg/dL (8.4-10.2); Total Bilirubin 0.7 mg/dL (0.2-1.3); Total Protein 6.2 g/dL (6.3-8.2)
[2020-12-15] MEDS: ASCORBIC ACID 500 MG TAB PO SCH (09:05)
[2020-12-15] MEDS: CHOLECALCIFEROL 25 MCG (1000 IU) TABLET PO SCH (09:05)
[2020-12-15] MEDS: TAMSULOSIN 0.4 MG CAP.ER.24H PO SCH (09:05)
[2020-12-15] MEDS: CYANOCOBALAMIN 500 MCG TAB PO SCH (09:05)
[2020-12-15] MEDS: ZINC SULFATE 220 MG CAP PO SCH (09:05)
[2020-12-15] MEDS: LINAGLIPTIN 5 MG TABLET PO SCH (09:05)
[2020-12-15] MEDS: COLCHICINE 0.6 MG EACH PO SCH ×2 (09:11→21:07)
[2020-12-15] MEDS: AZITHROMYCIN 250 MG TAB PO SCH (09:11)
[2020-12-15] MEDS: NON FORMULARY DRUG (Omega-3 Acid Ethyl Esters [Lovaza] 1 GM Capsule) PO SCH ×2 (09:13→17:45)
--- NOTE | 2020-12-15 09:29 | P.PN ---
Subjective Progress Note Date: 12/15/20 Acute hypoxic respiratory failure secondary to previous CoVID 19 pneumonia 89-year-old male with a history of multiple medical problems, including atrial fibrillation, and hyperlipidemia, and hypertension, who presents to the emergency department on 12/08/2020, at 1259, complaining of shortness of breath. He apparently tested positive for coronavirus, on November 16. Since that time, he's had progressive difficulty breathing. Apparently according to the senior living staff, his oxygen requirements went up, and his saturations went down. For that reason, he was directed to the emergency department. He was seen there and admitted with a diagnosis of COVID 19 pneumonia. Currently, the patient's on O2 at 6 L. He has a history of atrial fibrillation, diabetes mellitus, hyperlipidemia, hypertension, congestive heart failure, osteoarthritis, syncope, carotid artery disease, and skin cancer. Currently, his white count is 7.2, hemoglobin 11.6, hematocrit 35.5, and platelet count 180,000. His PT was 34 with an INR of 3.5 and his d-dimer was greater than 34. Sodium was 139, potassium 5.1, chloride 110, CO2 21, anion gap 8, and a BUN was 59 and the creatinine was 1.74. The patient's C-reactive protein was 258, N-terminal proBNP was 3550, and his troponin was 0.067. Progress note dated 12/10/2020. 89-year-old male with history of multiple medical problems including CHF, atrial fibrillation, and hyperlipidemia, and hypertension, who presented to the emergency department on December 08. He came in complaining of shortness of breath. He did test positive for COVID 19 on November 16. Apparently he's had progressive worsening of his breathing at the senior living, and his oxygen re quirements went up, and his saturations went down. For that reason he was brought to the ER when he was admitted to the hospital. He is currently doing about the same today. He is on between 5-6 L by nasal cannula. He is not receiving any IV fluids. He is not a particularly good historian. It's hard to gauge how he is feeling today but he does look relatively stable. Currently, he is on 6 L nasal cannula and saturations are between 90 and 95%. Labs from today include a PT of 44.7, INR 4.6, and a glucose of 295. Chest x-ray from December 08 was reviewed. Medications are reviewed. The patient is seen today 12/11/2020 in follow-up on the selective care unit. He is currently awake and alert in no acute distress. He is resting comfortably in bed. He is dyspneic with minimal exertion. He is still requiring 10 L high flow nasal cannula to maintain O2 saturation in the low 90s. He's been afebrile. Chest x-ray reveals scattered bilateral airspace infiltrates without any significant change compared to previous. Blood culture reveals no growth to date. White count 11.5. Hemoglobin 12.2. INR 3.7. Sodium 138. Potassium 5.1. Creatinine 1.60. He remains on Decadron, vitamin supplements, warfarin. The patient is seen today 12/12/2020 in follow-up on the selective care unit. He is currently awake and alert in no acute distress. He is still requiring 10 L high flow nasal cannula. He has a loose congested cough. Not much improvement. He is currently afebrile. Blood cultures reveal no growth. INR 2.4. Glucose 193. He remains on IV Solu-Medrol, bronchodilators, colchicine, vitamin supplements, antibiotics. Chest x-ray continues to show persistent bilateral multifocal acute opacities secondary to CoVID 19 infection. No significant change. The patient is seen December 13 2020 in follow-up on the selective care unit. He is currently resting comfortably in bed. Awake and alert. He continues to require increasing amounts of oxygen to maintain O2 saturations in the 90s. He is on 15 L high flow now. Chest x-ray continues to show persistent bilateral m ultifocal opacities. He remains on IV Solu-Medrol, bronchodilators, colchicine, vitamin supplements, antibiotics. Blood cultures reveal no growth. INR 3.0. Glucose 287. The patient is seen today 12/14/2020 in follow-up on the selective care unit. He remains awake and alert. No acute distress. Maintaining O2 saturations in the 90s on 15 L high flow nasal cannula. Blood culture reveals no growth. White count 16.5. Hemoglobin 13.4. Platelets 145. INR 7.2. Sodium 138. Potassium 5.4. Creatinine 1.48. He remains on IV Solu-Medrol, bronchodilators, colchicine, vitamin supplements, antibiotics. On 12/15/2020, the patient is seen for a follow-up. The patient remains on high flow oxygen at 15 L per minute cannula. On today's evaluation, she is essentially the same as yesterday. Her white cell count is elevated at 19 with a hemoglobin of 12.6. The patient continues to be toxic on Coumadin and her INR is up to 8.6 and the warfarin is on hold. The patient's BNP is at 71 with a cr eatinine of 1.25 and this is improving compared to yesterday. The liver function tests are essentially within normal limits. In terms of treatment, the patient remains on IV Solu-Medrol 60 mg every 6 hours and the patient is also on colchicine, zinc sulfate and the patient is on empiric antibiotic coverage with Zithromax. Blood cultures been negative. The chest x-ray that was done on 12/12/2020 showed diffuse bilateral pulmonary infiltrates, peripheral most on the right and he was given a dose of vitamin K 5 mg IV Objective - Vital Signs Vital signs: Vital Signs Temp 97.1 F L 12/15/20 04:00 Pulse 63 12/15/20 04:00 Resp 18 12/15/20 04:00 BP 141/67 12/15/20 04:00 Pulse Ox 95 12/15/20 04:00 Intake & Output 12/14/20 12/15/20 12/15/20 18:59 06:59 18:59 Intake Total 1860 400 236 Balance 1860 400 236 Weight 78 kg 77 kg Intake: Intake, IV Titration 400 Amount Sodium Chloride 0.45% 1, 400 000 ml @ 50 mls/hr IV . Q20H [facility] Rx#:[id number] Oral 1860 236 Other: Voiding Method Diaper Diaper External Catheter # Voids 2 1 - Exam GENERAL EXAM: Alert, 89-year-old gentleman, on 15 L high flow nasal cannula, comfortable in no apparent distress. HEAD: Normocephalic. EYES: Normal reaction of pupils, equal size. NOSE: Clear with pink turbinates. THROAT: No erythema or exudates. NECK: No masses, no JVD. CHEST: No chest wall deformity. LUNGS: Equal air entry with bilateral scattered rhonchi. CVS: S1 and S2 normal with no audible murmur, regular rhythm. ABDOMEN: No hepatosplenomegaly, normal bowel sounds, no guarding or rigidity. SPINE: No scoliosis or deformity SKIN: No rashes CENTRAL NERVOUS SYSTEM: No focal deficits, tone is normal in all 4 extremities. EXTREMITIES: There is no peripheral edema. No clubbing, no cyanosis. Peripheral pulses are intact. - Labs CBC & Chem 7: 12/15/20 06:42 12/15/20 07:50 Labs: Abnormal Lab Results - Last 24 Hours (Table) 12/14/20 12/14/20 12/14/20 Range/Units 10:49 12:07 17:08 WBC (3.8-10.6) k/uL RBC (4.30-5.90) m/uL Hgb (13.0-17.5) gm/dL Hct (39.0-53.0) % MCV (80.0-100.0) fL Plt Count (150-450) k/uL Neutrophils # (1.3-7.7) k/uL PT 70.0 H (9.0-12.0) sec INR 7.2 H* (<1.2) BUN (9-20) mg/dL Glucose (74-99) mg/dL POC Glucose (mg/dL) 314 H 240 H (75-99) mg/dL Calcium (8.4-10.2) mg/dL Total Protein (6.3-8.2) g/dL Albumin (3.5-5.0) g/dL 12/14/20 12/15/20 12/15/20 Range/Units 20:20 06:30 06:42 WBC (3.8-10.6) k/uL RBC (4.30-5.90) m/uL Hgb (13.0-17.5) gm/dL Hct (39.0-53.0) % MCV (80.0-100.0) fL Plt Count (150-450) k/uL Neutrophils # (1.3-7.7) k/uL PT 83.9 H (9.0-12.0) sec INR 8.6 H* (<1.2) BUN (9-20) mg/dL Glucose (74-99) mg/dL POC Glucose (mg/dL) 205 H 139 H (75-99) mg/dL Calcium (8.4-10.2) mg/dL Total Protein (6.3-8.2) g/dL Albumin (3.5-5.0) g/dL 12/15/20 12/15/20 Range/Units 06:42 07:50 WBC 19.0 H (3.8-10.6) k/uL RBC 3.77 L (4.30-5.90) m/uL Hgb 12.6 L (13.0-17.5) gm/dL Hct 37.9 L (39.0-53.0) % MCV 100.7 H (80.0-100.0) fL Plt Count 128 L (150-450) k/uL Neutrophils # 16.8 H (1.3-7.7) k/uL PT (9.0-12.0) sec INR (<1.2) BUN 71 H (9-20) mg/dL Glucose 151 H (74-99) mg/dL POC Glucose (mg/dL) (75-99) mg/dL Calcium 7.5 L (8.4-10.2) mg/dL Total Protein 6.2 L (6.3-8.2) g/dL Albumin 2.8 L (3.5-5.0) g/dL Microbiology - Last 24 Hours (Table) 12/08/20 13:16 Blood Culture - Final Blood No Growth after 144 hours Assessment and Plan Plan: 1 Acute hypoxemic respiratory failure, progressive, in a patient with a prior diagnosis of COVID 19 infection on November 16. Currently on 15 L high flow nasal cannula. The patient is currently on high flow O2 in addition to IV solumedrol. 2 History of atrial fibrillation. Anticoagulated with warfarin. 3 History of chronic diastolic congestive heart failure. Preserved left ventricular systolic function. 4 Moderate aortic stenosis. 5 Moderate pulmonary hypertension. 6 History of essential hypertension. 7 History of hyperlipidemia. 8 History of osteoarthritis. 9 History of syncope. 10 History of carotid artery disease. 11 History of skin cancer. 12 Mild dementia. 13 Coumadin induced coagulopathy. INR 8.6 today. No bleeding complications. 14 Poor overall functional performance based on the above-mentioned multiple comorbidities Plan: 5 mg of vitamin K was given. The patient will have the warfarin on hold. Repeat PT/INR this afternoon. Repeat chest x-ray Obtain inflammatory markers including LDH and CRP and ferritin Continue the current treatment plan Very slow to progress Prognosis is poor Titrate down the FiO2 as tolerated DO NOT RESUSCITATE/DO NOT INTUBATE CODE STATUS We will continue to follow
[2020-12-15 10:34] LABS: C Reactive Protein 11.4 mg/L (<10.0)
--- NOTE | 2020-12-15 11:20 | XR ---
EXAMINATION TYPE: XR chest 1V portable DATE OF EXAM: 12/15/2020 HISTORY: Shortness of breath. COMPARISON: December 12, 2020 TECHNIQUE: Single view of the chest is submitted. FINDINGS: Demonstrated are scattered senescent parenchymal change. There are persistent but improving infiltrates seen throughout both lung godfrey. Continued follow-up is advised. The heart is stable. Hilar and mediastinal structures are within normal limits. Degenerative changes are seen of the dorsal spine. IMPRESSION: 1. There are persistent but improving infiltrates seen throughout both lung godfrey. Continued follow -up is advised.
[2020-12-15 11:57] LABS: Glucose,Whole Blood 169 mg/dL (75-99)
--- NOTE | 2020-12-15 15:45 | P.PN ---
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, vascular dementia, patient was diagnosed with COVID-19 at the snf and he was taken care off with decadron, ABX along with vitamin supplement, was doing fine till recently when he developed to have increased shortness of breath, along with a drop in his O2 saturation, was seen by myself on Tuesday and he was doing relatively ok, his CXR showed bilateral pneumonia, was on Levaquin for possible secondary bacterial infection and his coumadin was on hold due to coagulopathy, today Nicole the Nurse Practitioner at [facility] saw him and she advised me to send him to the ER for worsening shortness of breath and worsening cough, patient was seen and evaluated in the ER at [facility], CXR showed new bilateral pneumonia suggestive of COVID-19, patient was placed on )2 support and was started on Zithromax 250 mg IVPB daily, and we will be maintained on Decadron 6 mg orally daily and we will obtain pulmonary consult, 12/09: Patient is currently pulse oxing 94-95% on 6 L high flow nasal cannula. He has been afebrile since admission, respiratory rate 24, heart rate 84. Echocardiogram reveals EF of 50-55% with moderate concentric left ventricular hypertrophy, moderate aortic stenosis, mild to moderate mitral regurgitation, moderate pulmonary hypertension. WBC 7.2, hemoglobin 11.6. CO2 21, BUN 59 and creatinine 1.74. Blood sugars have been elevated but most recent one is 147. NovoLog scale started. Patient hasn't seen and followed by pulmonary medicine, supplements added. Patient is continued on dexamethasone, azithromycin. INR is 3.5, pharmacy to dose Coumadin /3: Patient has been seen by cardiology and pulmonary medicine. He has been afebrile, currently pulse oxing 93% on 6 L high flow nasal cannula. Respiratory rate in the 20s. Heart rate 69. INR is 4.6. Glucose running between 161 and 295. Blood culture showing no growth after 24 hours. Patient does not have much appetite. He is dyspneic with very little activity. He continues to have cough. 12/11: Decadron was transitioned to IV Solu-Medrol yesterday by pulmonary medicine. Patient continues to have dyspnea and cough. Pulse ox 90-91% on 10 L nasal cannula. He has been afebrile, heart rate 80, respiratory rate 24. CBC 1 1.5, hemoglobin 12.2. INR 3.7. BUN 67 and creatinine 1.6. Blood sugars ran between 94 and 240. Blood culture is no growth. 12/12: Patient is awake and alert. He is currently on 10 L nasal cannula with pulse ox of 91%. He has been afebrile, heart rate 77, blood pressure 139/74. 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 INR is 2.4. Pharmacy is dosing Coumadin. Blood sugars are 193-225. Levemir will be increased to 45 units at bedtime. Patient denies any fever or chills. He continues to have cough. Patient experiences shortness of breath with minimal activity. Patient is continued on IV Solu-Medrol 60 mg every 6 hours, azithromycin and supplement for Covid 19. 12/15: INR is 8.6 and patient will be ordered for vitamin K 1 dose IV piggyback. Patient states he is not eating much and does not have much appetite. He complains of feeling weak. He has no phlegm production. WBC 19, hemoglobin 12.6, platelet count 128. Electrolytes normal. BUN 71 and creatinine 1.25. Blood sugars running between 139 and 169. Consult added for nephrology for increasing BUN. Repeat chest x-ray reveals persistent but improving infiltrates seen throughout both lung godfrey. 94% on 15 L high flow nasal cannula. He has been afebrile, heart rate in 60s and 70s, blood pressure 143/67. Objective - Vital Signs Vital signs: Vital Signs Temp 97.1 F L 12/15/20 04:00 Pulse 63 12/15/20 04:00 Resp 18 12/15/20 04:00 BP 141/67 12/15/20 04:00 Pulse Ox 95 12/15/20 04:00 Intake & Output 12/14/20 12/15/20 12/15/20 18:59 06:59 18:59 Intake Total 1860 400 Balance 1860 400 Weight 78 kg 77 kg Intake: Intake, IV Titration 400 Amount Sodium Chloride 0.45% 1, 400 000 ml @ 50 mls/hr IV . Q20H [facility] Rx#:[id number] Oral 1860 Other: Voiding Method Diaper Diaper External Catheter # Voids 2 1 - Exam Review of Systems Constitutional: Reports fatigue, Reports night sweats, Reports weakness Eyes: bilateral blurred vision, bilateral decreased vision Ears: bilateral: decreased hearing Ears, nose, mouth and throat: Denies dysphagia, Denies neck lump, Denies sore throat Cardiovascular: Reports decreased exercise tolerance, Reports dyspnea on exert ion, Reports irregular heart beat, Reports shortness of breath, Denies chest pain, Denies orthopnea, Denies rapid heart beat, Denies syncope Respiratory: Reports congestion, Reports cough, Reports cough with sputum, Reports dyspnea, Reports home oxygen, Reports respiratory infections, Reports wheezing, Denies sleep apnea, Denies snoring Gastrointestinal: Reports nausea, Denies abdominal pain, Denies belching, Denies BRBPR, Denies change in bowel habits, Denies diarrhea, Denies loss of appetite, Denies melena, Denies vomiting Genitourinary: Reports nocturia, Denies dysuria Musculoskeletal: Reports gait dysfunction, Reports morning stiffness Musculoskeletal: absent: ankle pain, ankle stiffness, elbow pain, elbow stiffness, elbow swelling, foot pain, foot stiffness, foot swelling, hand pain, hand stiffness, hand swelling, hip pain, hip stiffness, hip swelling, knee pain, knee stiffness, knee swelling, shoulder pain, shoulder stiffness, shoulder swelling, wrist pain, wrist stiffness, wrist swelling Integumentary: Denies pruritus, Denies rash Neurological: Reports confusion, Reports gait dysfunction, Reports memory loss, Reports weakness, Reports visual changes Psychiatric: Denies anxiety, Denies depression Endocrine: Denies fatigue, Denies weight change Physical examination: General: this is an 89 year old sitting up in bed with minimal respiratory distress at rest. HEENT: head is atraumatic normocephalic pupils were equal round reactive to light and accommodations extra ocular muscle movements were intact. mucous membranes of the mouth are moist. Neck: supple no JVP, decreased carotid upstrokes bilaterally. Chest: decrease breath sounds at the bases with few ronchi, minimal expiratory wheezes, minimal intercostal retractions. Heart: first heart sound is depressed, second heart sound is normal irregularly irregular there is VALARIE 2/6 located in the left sternal border. Abdomen: soft non tender, non distended positive bowel sounds. Extremities: there is no edema no calf tenderness , DP +1 bilaterally. Neurologic examination: patient is awake alert and oriented X 2 CN II-XII are grossly intact, muscle power 4/5 in bilateral upper extremities and 3/5 in bilateral lower extremities, deep tendon reflexes were depressed. - Labs CBC & Chem 7: 12/15/20 06:42 12/15/20 07:50 Labs: Abnormal Lab Results - Last 24 Hours (Table) 12/14/20 12/14/20 12/14/20 Range/Units 06:58 10:49 12:07 WBC (3.8-10.6) k/uL RBC (4.30-5.90) m/uL Hgb (13.0-17.5) gm/dL Hct (39.0-53.0) % MCV (80.0-100.0) fL Plt Count 145 L (150-450) k/uL Neutrophils # (1.3-7.7) k/uL Neutrophils # (Manual) 15.00 H (1.3-7.7) k/uL PT 70.0 H (9.0-12.0) sec INR 7.2 H* (<1.2) POC Glucose (mg/dL) 314 H (75-99) mg/dL 12/14/20 12/14/20 12/15/20 Range/Units 17:08 20:20 06:30 WBC (3.8-10.6) k/uL RBC (4.30-5.90) m/uL Hgb (13.0-17.5) gm/dL Hct (39.0-53.0) % MCV (80.0-100.0) fL Plt Count (150-450) k/uL Neutrophils # (1.3-7.7) k/uL Neutrophils # (Manual) (1.3-7.7) k/uL PT (9.0-12.0) sec INR (<1.2) POC Glucose (mg/dL) 240 H 205 H 139 H (75-99) mg/dL 12/15/20 12/15/20 Range/Units 06:42 06:42 WBC 19.0 H (3.8-10.6) k/uL RBC 3.77 L (4.30-5.90) m/uL Hgb 12.6 L (13.0-17.5) gm/dL Hct 37.9 L (39.0-53.0) % MCV 100.7 H (80.0-100.0) fL Plt Count 128 L (150-450) k/uL Neutrophils # 16.8 H (1.3-7.7) k/uL Neutrophils # (Manual) (1.3-7.7) k/uL PT 83.9 H (9.0-12.0) sec INR 8.6 H* (<1.2) POC Glucose (mg/dL) (75-99) mg/dL Microbiology - Last 24 Hours (Table) 12/08/20 13:16 Blood Culture - Final Blood No Growth after 144 hours Assessment and Plan Plan: 1. Acute hypoxic respiratory failure due to COVID-19 pneumonia. we will continue IV Solu-Medrol 60 mg IV every 6 hours, Zithromax 250 mg IVPB daily, O2 support , Ventolin HFA 2 puffs inhalation Q 4 h, pulmonary consult appreciated. 2. Acute kidney injury on CKD 3a. we will start IVF 0.45 50 cc/h and we will hold lasix and digoxin, monitor CMP. Consult with nephrology. 3. Hypertension and hypertensive cardiovascular disease. we will continue with Lisinopril 20 mg orally daily. 4. Hyperlipidemia. we will continue with Lipitor 40 mg orally daily. 5. Diabetes mellitus type 2 uncontrolled with hyperglycemia secondary to steroids. Continue Levemir increased to 45 units at bedtime, continue NovoLog scheduled 7 units 3 times daily with meals, continue NovoLog scale before meals and at bedtime, Tradjenta 5 mg daily. 6. history of CVA and TIA with left carotid disease. we will continue with Lipitor 40 mg orally daily for secondary CVA prevention. 7. Atrial fibrillation/flutter. we will continue with monitoring, hold coumadin tonight and we will reevaluate in AM. 8. Coagulopathy due to coumadin use and interaction with Levaquin and now Zithromax. we will continue to monitor daily, pharmacy dosing Coumadin. Status post vitamin K. Continue to monitor closely. 9. enlarged prostate. we will continue with Flomax 0.4 mg orally daily. 10. Vitamin d deficiency. we will continue with vitamin D supplement and we will check levels. 11. DVT prophylaxis. we will continue with Bilateral Knee-High Moshe Hose and we will resume coumadin in AM. 12. GI prophylaxis. we will continue with PPI. 13. Discharge plan: back to [facility] possibly later this week Impression and plan of care have been directed as dictated by the signing physician. Monie Melvin nurse practitioner acting as scribe for signing physician.
[2020-12-15 16:22] LABS: INR 2.4 (<1.2); Prothrombin Time 22.9 sec (9.0-12.0)
[2020-12-15 16:40] LABS: Glucose,Whole Blood 170 mg/dL (75-99)
[2020-12-15] MEDS ORDERED: WARFARIN 0.5 MG TAB PO ONE (18:00)
[2020-12-15 20:30] LABS: Glucose,Whole Blood 148 mg/dL (75-99)
[2020-12-15] MEDS: INSULIN DETEMIR (LEVEMIR) 100 UNIT/ML SYR SQ SCH (21:05)
[2020-12-15] MEDS: lisinopriL 20 MG TAB PO SCH (21:06)
[2020-12-15] MEDS: MELATONIN 1 MG TAB PO SCH (21:06)
[2020-12-15] MEDS: FAMOTIDINE 20 MG TAB PO SCH (21:06)
[2020-12-15] MEDS: ATORVASTATIN 40 MG TAB PO SCH (21:06)
[2020-12-15] MEDS: BISOPROLOL 5 MG TAB PO SCH (21:07)
[2020-12-16 06:10] LABS: Glucose,Whole Blood 173 mg/dL (75-99)
[2020-12-16] MEDS: INSULIN ASPART (NovoLOG) 100 UNIT/ML VIAL SQ SCH ×7 (06:30→21:55)
[2020-12-16] MEDS: methylPREDNISolone SOD SUCCI 125 MG/2 ML VIAL IV SCH ×4 (06:31→23:19)
[2020-12-16] MEDS: ALBUTEROL HFA INHALER INHALATION SCH ×4 (07:33→20:15)
[2020-12-16 08:11] LABS: HCT 39.2 % (39.0-53.0); HGB 12.6 gm/dL (13.0-17.5); Hypochromasia Slight; MCH 32.6 pg (25.0-35.0); MCHC 32.1 g/dL (31.0-37.0); MCV 101.6 fL (80.0-100.0); Macrocytosis Slight; Mean Platelet Volume 10.1; Platelet Count 137 k/uL (150-450); RBC 3.86 m/uL (4.30-5.90); RDW 14.8 % (11.5-15.5); WBC 22.4 k/uL (3.8-10.6)
[2020-12-16 08:33] LABS: Albumin 2.6 g/dL (3.5-5.0); C Reactive Protein 6.9 mg/L (<10.0); Calcium 7.7 mg/dL (8.4-10.2); Total Bilirubin 0.7 mg/dL (0.2-1.3)
[2020-12-16 08:36] LABS: INR 1.5 (<1.2)
[2020-12-16] MEDS: ZINC SULFATE 220 MG CAP PO SCH (08:54)
[2020-12-16] MEDS: LINAGLIPTIN 5 MG TABLET PO SCH (08:54)
[2020-12-16] MEDS: TAMSULOSIN 0.4 MG CAP.ER.24H PO SCH (08:54)
[2020-12-16] MEDS: ASCORBIC ACID 500 MG TAB PO SCH (08:55)
[2020-12-16] MEDS: ERGOCALCIFEROL 1,250 MCG (50,000 IU) CAPSULE PO SCH (08:55)
[2020-12-16] MEDS: CHOLECALCIFEROL 25 MCG (1000 IU) TABLET PO SCH (08:55)
[2020-12-16] MEDS: CYANOCOBALAMIN 500 MCG TAB PO SCH (08:56)
[2020-12-16] MEDS: COLCHICINE 0.6 MG EACH PO SCH ×2 (08:56→22:05)
[2020-12-16] MEDS: AZITHROMYCIN 250 MG TAB PO SCH (08:56)
[2020-12-16] MEDS: NON FORMULARY DRUG (Omega-3 Acid Ethyl Esters [Lovaza] 1 GM Capsule) PO SCH ×2 (08:57→17:27)
--- NOTE | 2020-12-16 10:40 | P.PN ---
Subjective Progress Note Date: 12/16/20 Acute hypoxic respiratory failure secondary to previous CoVID 19 pneumonia 89-year-old male with a history of multiple medical problems, including atrial fibrillation, and hyperlipidemia, and hypertension, who presents to the emergency department on 12/08/2020, at 1259, complaining of shortness of breath. He apparently tested positive for coronavirus, on November 16. Since that time, he's had progressive difficulty breathing. Apparently according to the correction staff, his oxygen requirements went up, and his saturations went down. For that reason, he was directed to the emergency department. He was seen there and admitted with a diagnosis of COVID 19 pneumonia. Currently, the patient's on O2 at 6 L. He has a history of atrial fibrillation, diabetes mellitus, hyperlipidemia, hypertension, congestive heart failure, osteoarthritis, syncope, carotid artery disease, and skin cancer. Currently, his white count is 7.2, hemoglobin 11.6, hematocrit 35.5, and platelet count 180,000. His PT was 34 with an INR of 3.5 and his d-dimer was greater than 34. Sodium was 139, potassium 5.1, chloride 110, CO2 21, anion gap 8, and a BUN was 59 and the creatinine was 1.74. The patient's C-reactive protein was 258, N-terminal proBNP was 3550, and his troponin was 0.067. Progress note dated 12/10/2020. 89-year-old male with history of multiple medical problems including CHF, atrial fibrillation, and hyperlipidemia, and hypertension, who presented to the emergency department on December 08. He came in complaining of shortness of breath. He did test positive for COVID 19 on November 16. Apparently he's had progressive worsening of his breathing at the correction, and his oxygen re quirements went up, and his saturations went down. For that reason he was brought to the ER when he was admitted to the hospital. He is currently doing about the same today. He is on between 5-6 L by nasal cannula. He is not receiving any IV fluids. He is not a particularly good historian. It's hard to gauge how he is feeling today but he does look relatively stable. Currently, he is on 6 L nasal cannula and saturations are between 90 and 95%. Labs from today include a PT of 44.7, INR 4.6, and a glucose of 295. Chest x-ray from December 08 was reviewed. Medications are reviewed. The patient is seen today 12/11/2020 in follow-up on the selective care unit. He is currently awake and alert in no acute distress. He is resting comfortably in bed. He is dyspneic with minimal exertion. He is still requiring 10 L high flow nasal cannula to maintain O2 saturation in the low 90s. He's been afebrile. Chest x-ray reveals scattered bilateral airspace infiltrates without any significant change compared to previous. Blood culture reveals no growth to date. White count 11.5. Hemoglobin 12.2. INR 3.7. Sodium 138. Potassium 5.1. Creatinine 1.60. He remains on Decadron, vitamin supplements, warfarin. The patient is seen today 12/12/2020 in follow-up on the selective care unit. He is currently awake and alert in no acute distress. He is still requiring 10 L high flow nasal cannula. He has a loose congested cough. Not much improvement. He is currently afebrile. Blood cultures reveal no growth. INR 2.4. Glucose 193. He remains on IV Solu-Medrol, bronchodilators, colchicine, vitamin supplements, antibiotics. Chest x-ray continues to show persistent bilateral multifocal acute opacities secondary to CoVID 19 infection. No significant change. The patient is seen December 13 2020 in follow-up on the selective care unit. He is currently resting comfortably in bed. Awake and alert. He continues to require increasing amounts of oxygen to maintain O2 saturations in the 90s. He is on 15 L high flow now. Chest x-ray continues to show persistent bilateral m ultifocal opacities. He remains on IV Solu-Medrol, bronchodilators, colchicine, vitamin supplements, antibiotics. Blood cultures reveal no growth. INR 3.0. Glucose 287. The patient is seen today 12/14/2020 in follow-up on the selective care unit. He remains awake and alert. No acute distress. Maintaining O2 saturations in the 90s on 15 L high flow nasal cannula. Blood culture reveals no growth. White count 16.5. Hemoglobin 13.4. Platelets 145. INR 7.2. Sodium 138. Potassium 5.4. Creatinine 1.48. He remains on IV Solu-Medrol, bronchodilators, colchicine, vitamin supplements, antibiotics. On 12/15/2020, the patient is seen for a follow-up. The patient remains on high flow oxygen at 15 L per minute cannula. On today's evaluation, she is essentially the same as yesterday. Her white cell count is elevated at 19 with a hemoglobin of 12.6. The patient continues to be toxic on Coumadin and her INR is up to 8.6 and the warfarin is on hold. The patient's BNP is at 71 with a cr eatinine of 1.25 and this is improving compared to yesterday. The liver function tests are essentially within normal limits. In terms of treatment, the patient remains on IV Solu-Medrol 60 mg every 6 hours and the patient is also on colchicine, zinc sulfate and the patient is on empiric antibiotic coverage with Zithromax. Blood cultures been negative. The chest x-ray that was done on 12/12/2020 showed diffuse bilateral pulmonary infiltrates, peripheral most on the right and he was given a dose of vitamin K 5 mg IV On today's evaluation of 12/16/2020 the patient is being seen for a follow-up. He is a case of malignancy related pneumonia. The patient is currently on 50 L about 2 by nasal cannula. His LDH level is up from yesterday is down to 1650 and his CRP level is down to 6.9. Creatinine is stable at 1.3. The patient was given a total of 5 mg of vitamin K and his INR is down to 1.5. No new complaints. Weak cough. Unable to bring up much sputum. He remains on Levemir insulin 45 units in addition to a scale and NovoLog 7 units 3 times a day with meals. The patient is on IV Solu-Medrol 60 mg every 6 hours. He is also on colchicine 0.6 mg by mouth twice a day. The chest x-ray from yesterday was noted and it showed persistent but improving infiltrates in both lung godfrey. Objective - Vital Signs Vital signs: Vital Signs Temp 97.5 F L 12/16/20 08:00 Pulse 73 12/16/20 08:00 Resp 19 12/16/20 08:00 BP 157/67 12/16/20 08:00 Pulse Ox 94 L 12/16/20 08:00 Intake & Output 12/15/20 12/16/20 12/16/20 18:59 06:59 18:59 Intake Total 992 236 Balance 992 236 Weight 79.5 kg Intake: Intake, IV Titration 500 Amount Phytonadione 5 mg In 100 Sodium Chloride 0.9% 50 ml @ 100 mls/hr IVPB ONCE STA Rx#:[id number] Sodium Chloride 0.45% 1, 400 000 ml @ 50 mls/hr IV . Q20H [facility] Rx#:[id number] Oral 492 [id number] Other: Voiding Method Diaper Diaper # Voids 1 # Bowel Movements 1 - Exam GENERAL EXAM: Alert, 89-year-old gentleman, on 13 L high flow nasal cannula, comfortable in no apparent distress. HEAD: Normocephalic. EYES: Normal reaction of pupils, equal size. NOSE: Clear with pink turbinates. THROAT: No erythema or exudates. NECK: No masses, no JVD. CHEST: No chest wall deformity. LUNGS: Equal air entry with bilateral scattered rhonchi. CVS: S1 and S2 normal with no audible murmur, regular rhythm. ABDOMEN: No hepatosplenomegaly, normal bowel sounds, no guarding or rigidity. SPINE: No scoliosis or deformity SKIN: No rashes CENTRAL NERVOUS SYSTEM: No focal deficits, tone is normal in all 4 extremities. EXTREMITIES: There is no peripheral edema. No clubbing, no cyanosis. Peripheral pulses are intact. - Labs CBC & Chem 7: 12/16/20 07:33 12/16/20 07:33 Labs: Abnormal Lab Results - Last 24 Hours (Table) 12/15/20 12/15/20 12/15/20 Range/Units 11:56 15:57 16:39 WBC (3.8-10.6) k/uL RBC (4.30-5.90) m/uL Hgb (13.0-17.5) gm/dL MCV (80.0-100.0) fL Plt Count (150-450) k/uL PT 22.9 H (9.0-12.0) sec INR 2.4 H (<1.2) BUN (9-20) mg/dL Creatinine (0.66-1.25) mg/dL Glucose (74-99) mg/dL POC Glucose (mg/dL) 169 H 170 H (75-99) mg/dL Calcium (8.4-10.2) mg/dL Alkaline Phosphatase (38-126) U/L Lactate Dehydrogenase (313-618) U/L Total Protein (6.3-8.2) g/dL Albumin (3.5-5.0) g/dL 12/15/20 12/16/20 12/16/20 Range/Units 20:29 06:08 07:33 WBC (3.8-10.6) k/uL RBC (4.30-5.90) m/uL Hgb (13.0-17.5) gm/dL MCV (80.0-100.0) fL Plt Count (150-450) k/uL PT 15.0 H (9.0-12.0) sec INR 1.5 H (<1.2) BUN (9-20) mg/dL Creatinine (0.66-1.25) mg/dL Glucose (74-99) mg/dL POC Glucose (mg/dL) 148 H 173 H (75-99) mg/dL Calcium (8.4-10.2) mg/dL Alkaline Phosphatase (38-126) U/L Lactate Dehydrogenase (313-618) U/L Total Protein (6.3-8.2) g/dL Albumin (3.5-5.0) g/dL 12/16/20 12/16/20 Range/Units 07:33 07:33 WBC 22.4 H (3.8-10.6) k/uL RBC 3.86 L (4.30-5.90) m/uL Hgb 12.6 L (13.0-17.5) gm/dL MCV 101.6 H (80.0-100.0) fL Plt Count 137 L (150-450) k/uL PT (9.0-12.0) sec INR (<1.2) BUN 64 H (9-20) mg/dL Creatinine 1.32 H (0.66-1.25) mg/dL Glucose 163 H (74-99) mg/dL POC Glucose (mg/dL) (75-99) mg/dL Calcium 7.7 L (8.4-10.2) mg/dL Alkaline Phosphatase 171 H (38-126) U/L Lactate Dehydrogenase 1650 H (313-618) U/L Total Protein 6.0 L (6.3-8.2) g/dL Albumin 2.6 L (3.5-5.0) g/dL Assessment and Plan Plan: 1 Acute hypoxemic respiratory failure, progressive, in a patient with a prior diagnosis of COVID 19 infection on November 16. Currently on 13L high flow nasal cannula. The patient is currently on high flow O2 in addition to IV solumedrol. Chest x-ray from 12/15/2020 showed improvement in the bilateral pulmonary infiltrates. The patient remains on the same regimen for now. 2 History of atrial fibrillation. Anticoagulated with warfarin. Warfarin is currently on hold and INR is down to 1.5 3 History of chronic diastolic congestive heart failure. Preserved left ventricular systolic function. 4 Moderate aortic stenosis. 5 Moderate pulmonary hypertension. 6 History of essential hypertension. 7 History of hyperlipidemia. 8 History of osteoarthritis. 9 History of syncope. 10 History of carotid artery disease. 11 History of skin cancer. 12 Mild dementia. 13 Coumadin induced coagulopathy, treated and her INR is down to 1.5 14 Poor overall functional performance based on the above-mentioned multiple comorbidities Plan: Start Coumadin at a lower dose and monitor daily PT/INR Repeat chest x-ray in a.m. Obtain inflammatory markers including LDH and CRP and these are improving based on today's labs Continue the current treatment plan Very slow to progress Prognosis is poor Titrate down the FiO2 as tolerated, currently on 13 L by nasal cannula DO NOT RESUSCITATE/DO NOT INTUBATE CODE STATUS We will continue to follow
[2020-12-16 11:50] LABS: Glucose,Whole Blood 181 mg/dL (75-99)
--- NOTE | 2020-12-16 15:37 | P.PN ---
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, vascular dementia, patient was diagnosed with COVID-19 at the retirement and he was taken care off with decadron, ABX along with vitamin supplement, was doing fine till recently when he developed to have increased shortness of breath, along with a drop in his O2 saturation, was seen by myself on Tuesday and he was doing relatively ok, his CXR showed bilateral pneumonia, was on Levaquin for possible secondary bacterial infection and his coumadin was on hold due to coagulopathy, today Nicole the Nurse Practitioner at [facility] saw him and she advised me to send him to the ER for worsening shortness of breath and worsening cough, patient was seen and evaluated in the ER at [facility], CXR showed new bilateral pneumonia suggestive of COVID-19, patient was placed on )2 support and was started on Zithromax 250 mg IVPB daily, and we will be maintained on Decadron 6 mg orally daily and we will obtain pulmonary consult, 12/09: Patient is currently pulse oxing 94-95% on 6 L high flow nasal cannula. He has been afebrile since admission, respiratory rate 24, heart rate 84. Echocardiogram reveals EF of 50-55% with moderate concentric left ventricular hypertrophy, moderate aortic stenosis, mild to moderate mitral regurgitation, moderate pulmonary hypertension. WBC 7.2, hemoglobin 11.6. CO2 21, BUN 59 and creatinine 1.74. Blood sugars have been elevated but most recent one is 147. NovoLog scale started. Patient hasn't seen and followed by pulmonary medicine, supplements added. Patient is continued on dexamethasone, azithromycin. INR is 3.5, pharmacy to dose Coumadin /3: Patient has been seen by cardiology and pulmonary medicine. He has been afebrile, currently pulse oxing 93% on 6 L high flow nasal cannula. Respiratory rate in the 20s. Heart rate 69. INR is 4.6. Glucose running between 161 and 295. Blood culture showing no growth after 24 hours. Patient does not have much appetite. He is dyspneic with very little activity. He continues to have cough. 12/11: Decadron was transitioned to IV Solu-Medrol yesterday by pulmonary medicine. Patient continues to have dyspnea and cough. Pulse ox 90-91% on 10 L nasal cannula. He has been afebrile, heart rate 80, respiratory rate 24. CBC 1 1.5, hemoglobin 12.2. INR 3.7. BUN 67 and creatinine 1.6. Blood sugars ran between 94 and 240. Blood culture is no growth. 12/12: Patient is awake and alert. He is currently on 10 L nasal cannula with pulse ox of 91%. He has been afebrile, heart rate 77, blood pressure 139/74. can patcher atrial fibrillation and controlled rate. INR is 2.4. Pharmacy is dosing Coumadin. Blood sugars are 193-225. Levemir will be increased to 45 units at bedtime. Patient denies any fever or chills. He continues to have cough. Patient experiences shortness of breath with minimal activity. Patient is continued on IV Solu-Medrol 60 mg every 6 hours, azithromycin and supplement for Covid 19. 12/15: INR is 8.6 and patient will be ordered for vitamin K 1 dose IV piggyback. Patient states he is not eating much and does not have much appetite. He complains of feeling weak. He has no phlegm production. WBC 19, hemoglobin 12.6, platelet count 128. Electrolytes normal. BUN 71 and creatinine 1.25. Blood sugars running between 139 and 169. Consult added for nephrology for increasing BUN. Repeat chest x-ray reveals persistent but improving infiltrates seen throughout both lung godfrey. 94% on 15 L high flow nasal cannula. He has been afebrile, heart rate in 60s and 70s, blood pressure 143/67. 12/16: Patient continues to not eat very much with low appetite. Repeat INR today is at 1.5 and pharmacy is dosing Coumadin. Blood sugars are improved after changes made yesterday. He has been afebrile, heart rate 73, blood pressure 157/67, pulse ox 94% on 13 L high flow nasal cannula. WBC 22.4, hemoglobin 12.6, platelet count 137. BUN 64 and creatinine 1.32. Blood sugars running between 148 in the 181. LDH 1650. Alkaline phosphatase 171. Objective - Vital Signs Vital signs: Vital Signs Temp 97.5 F L 12/16/20 08:00 Pulse 73 12/16/20 08:00 Resp 19 12/16/20 08:00 BP 157/67 12/16/20 08:00 Pulse Ox 94 L 12/16/20 08:00 Intake & Output 12/15/20 12/16/20 12/16/20 18:59 06:59 18:59 Intake Total 992 236 Balance 992 236 Weight 79.5 kg Intake: Intake, IV Titration 500 Amount Phytonadione 5 mg In 100 Sodium Chloride 0.9% 50 ml @ 100 mls/hr IVPB ONCE STA Rx#:[id number] Sodium Chloride 0.45% 1, 400 000 ml @ 50 mls/hr IV . Q20H JEFF Rx#:[id number] Oral 492 236 Other: Voiding Method Diaper Diaper Diaper # Voids 1 2 # Bowel Movements 1 2 - Exam Review of Systems Constitutional: Reports fatigue, Reports night sweats, Reports generalized weakness Eyes: bilateral blurred vision, bilateral decreased vision Ears: bilateral: decreased hearing Ears, nose, mouth and throat: Denies dysphagia, Denies neck lump, Denies sore throat Cardiovascular: Reports decreased exercise tolerance, Reports dyspnea on exertion, Reports irregular heart beat, Reports shortness of breath, Denies chest pain, Denies orthopnea, Denies rapid heart beat, Denies syncope Respiratory: Reports congestion, Reports cough, Reports cough with sputum, Reports dyspnea, Reports home oxygen, Reports respiratory infections, Reports wheezing, Denies sleep apnea, Denies snoring Gastrointestinal: Reports nausea, Denies abdominal pain, Denies belching, Denies BRBPR, Denies change in bowel habits, Denies diarrhea, reports loss of appetite, Denies melena, Denies vomiting Genitourinary: Reports nocturia, Denies dysuria Musculoskeletal: Reports gait dysfunction, Reports morning stiffness Musculoskeletal: absent: ankle pain, ankle stiffness, elbow pain, elbow stiffness, elbow swelling, foot pain, foot stiffness, foot swelling, hand pain, hand stiffness, hand swelling, hip pain, hip stiffness, hip swelling, knee pain, knee stiffness, knee swelling, shoulder pain, shoulder stiffness, shoulder swelling, wrist pain, wrist stiffness, wrist swelling Integumentary: Denies pruritus, Denies rash Neurological: Reports confusion, Reports gait dysfunction, Reports memory loss, Reports weakness, Reports visual changes Psychiatric: Denies anxiety, Denies depression Endocrine: Denies fatigue, Denies weight change Physical examination: General: this is an 89 year old sitting up in bed with minimal respiratory distress at rest. HEENT: head is atraumatic normocephalic pupils were equal round reactive to light and accommodations extra ocular muscle movements were intact. mucous membranes of the mouth are moist. Neck: supple no JVP, decreased carotid upstrokes bilaterally. Chest: decrease breath sounds at the bases with few ronchi, minimal expiratory wheezes, minimal intercostal retractions. Heart: first heart sound is depressed, second heart sound is normal irregularly irregular there is VALARIE 2/6 located in the left sternal border. Abdomen: soft non tender, non distended positive bowel sounds. Extremities: there is no edema no calf tenderness , DP +1 bilaterally. Neurologic examination: patient is awake alert and oriented X 2 CN II-XII are grossly intact, muscle power 4/5 in bilateral upper extremities and 3/5 in bilateral lower extremities, deep tendon reflexes were depressed. - Labs CBC & Chem 7: 12/16/20 07:33 12/16/20 07:33 Labs: Abnormal Lab Results - Last 24 Hours (Table) 12/15/20 12/15/20 12/15/20 Range/Units 15:57 16:39 20:29 WBC (3.8-10.6) k/uL RBC (4.30-5.90) m/uL Hgb (13.0-17.5) gm/dL MCV (80.0-100.0) fL Plt Count (150-450) k/uL PT 22.9 H (9.0-12.0) sec INR 2.4 H (<1.2) BUN (9-20) mg/dL Creatinine (0.66-1.25) mg/dL Glucose (74-99) mg/dL POC Glucose (mg/dL) 170 H 148 H (75-99) mg/dL Calcium (8.4-10.2) mg/dL Alkaline Phosphatase (38-126) U/L Lactate Dehydrogenase (313-618) U/L Total Protein (6.3-8.2) g/dL Albumin (3.5-5.0) g/dL 12/16/20 12/16/20 12/16/20 Range/Units 06:08 07:33 07:33 WBC 22.4 H (3.8-10.6) k/uL RBC 3.86 L (4.30-5.90) m/uL Hgb 12.6 L (13.0-17.5) gm/dL MCV 101.6 H (80.0-100.0) fL Plt Count 137 L (150-450) k/uL PT 15.0 H (9.0-12.0) sec INR 1.5 H (<1.2) BUN (9-20) mg/dL Creatinine (0.66-1.25) mg/dL Glucose (74-99) mg/dL POC Glucose (mg/dL) 173 H (75-99) mg/dL Calcium (8.4-10.2) mg/dL Alkaline Phosphatase (38-126) U/L Lactate Dehydrogenase (313-618) U/L Total Protein (6.3-8.2) g/dL Albumin (3.5-5.0) g/dL 12/16/20 12/16/20 Range/Units 07:33 11:48 WBC (3.8-10.6) k/uL RBC (4.30-5.90) m/uL Hgb (13.0-17.5) gm/dL MCV (80.0-100.0) fL Plt Count (150-450) k/uL PT (9.0-12.0) sec INR (<1.2) BUN 64 H (9-20) mg/dL Creatinine 1.32 H (0.66-1.25) mg/dL Glucose 163 H (74-99) mg/dL POC Glucose (mg/dL) 181 H (75-99) mg/dL Calcium 7.7 L (8.4-10.2) mg/dL Alkaline Phosphatase 171 H (38-126) U/L Lactate Dehydrogenase 1650 H (313-618) U/L Total Protein 6.0 L (6.3-8.2) g/dL Albumin 2.6 L (3.5-5.0) g/dL Assessment and Plan Plan: 1. Acute hypoxic respiratory failure due to COVID-19 pneumonia. we will continue IV Solu-Medrol 60 mg IV every 6 hours, Zithromax 250 mg IVPB daily, O2 support , Ventolin HFA 2 puffs inhalation Q 4 h, pulmonary consult appreciated. 2. Acute kidney injury on CKD 3a. we will start IVF 0.45 50 cc/h and we will hold lasix and digoxin, monitor CMP. Consult with nephrology. 3. Hypertension and hypertensive cardiovascular disease. we will continue with Lisinopril 20 mg orally daily. 4. Hyperlipidemia. we will continue with Lipitor 40 mg orally daily. 5. Diabetes mellitus type 2 uncontrolled with hyperglycemia secondary to steroids. Continue Levemir increased to 45 units at bedtime, continue NovoLog scheduled 7 units 3 times daily with meals, continue NovoLog scale before meals and at bedtime, Tradjenta 5 mg daily. 6. history of CVA and TIA with left carotid disease. we will continue with Lipitor 40 mg orally daily for secondary CVA prevention. 7. Atrial fibrillation/flutter. we will continue with monitoring, hold coumadin tonight and we will reevaluate in AM. 8. Coagulopathy due to coumadin use and interaction with Levaquin and now Zithromax. we will continue to monitor daily, pharmacy dosing Coumadin. Status post vitamin K. Continue to monitor closely. 9. enlarged prostate. we will continue with Flomax 0.4 mg orally daily. 10. Vitamin d deficiency. we will continue with vitamin D supplement and we will check levels. 11. DVT prophylaxis. we will continue with Bilateral Knee-High Moshe Hose and we will resume coumadin in AM. 12. GI prophylaxis. we will continue with PPI. 13. Discharge plan: back to [facility] possibly later this week Impression and plan of care have been directed as dictated by the signing physician. Monie Melvin nurse practitioner acting as scribe for signing physician.
[2020-12-16 16:49] LABS: Glucose,Whole Blood 211 mg/dL (75-99)
[2020-12-16] MEDS ORDERED: WARFARIN 2.5 MG TAB PO ONE (18:00)
[2020-12-16] MEDS: SODIUM CHLORIDE 0.45% 1,000 ML IV SCH (18:22)
--- NOTE | 2020-12-16 18:27 | CONS ---
CONSULTATION REASON FOR CONSULT: Renal failure. HISTORY OF PRESENT ILLNESS: The patient is an 89-year-old male who was admitted to the hospital with complaints of shortness of breath. He ruled in for COVID; in fact, COVID infection. The patient had some shortness of breath which is now improved. His serum creatinine was 1.7 on initial admission. It was down to 1.25 yesterday and today it is 1.32. Blood pressure has not been low. The patient has had good urine output. I do not see any IV contrast agents administered this hospitalization. Currently patient is maintained on high-flow nasal cannula at about 11 to 13 L. He is saturating at about 91% to 97%. 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 PAST SURGICAL HISTORY: Hip arthroplasties, bilateral, right knee arthroplasty, removal of skin cancer. SOCIAL HISTORY: Negative for smoking, drug abuse or alcohol abuse. MEDICATIONS: Medications prior to admission included digoxin, Lipitor, Zebeta, vitamin B12, Trulicity, Lasix, insulin, Tradjenta, Levaquin, milk of magnesia, Flomax, Coumadin, Zofran, Zestril. ALLERGIES: NONE KNOWN. REVIEW OF SYSTEMS: As per HPI. Other systems negative. PHYSICAL EXAMINATION: Patient is comfortable, awake. He is not in any acute distress. Blood pressure was 157/67, heart rate 73 per minute. Patient is afebrile. Examination shows no significant edema in bilateral lower extremities. Abdomen is soft, nontender. JOIST SETTER exam grossly intact. Heart and lungs are not examined, as patient is COVID positive. LABS: Labs show sodium 138, potassium 5.0, chloride 106, BUN 64, creatinine 1.32, hemoglobin 12.6 g/dL. Albumin 2.6, calcium 7.7, glucose 163. ASSESSMENT: 1. Acute kidney injury associated with underlying COVID-19 infection and pneumonia. Renal function has improved; creatinine down to about 1.3 to 1.2, which is actually lower than his baseline. 2. Chronic kidney disease secondary to nephrosclerosis. Baseline creatinine about 1.5 to 1.7 mg/dL. 3. COVID-19 pneumonia, maintained on steroids. 4. Hypertension, currently maintained on TOO inhibitors. PLAN: May continue with the TOO inhibitors. Continue gentle IV hydration. Encourage increased oral intake. Repeat labs in a.m. Check urinalysis. Thank you for this consultation. Will continue to follow the patient with you during his hospitalization. JOSE / DENISE: [id number] /
[2020-12-16 20:16] LABS: Glucose,Whole Blood 167 mg/dL (75-99)
[2020-12-16] MEDS: lisinopriL 20 MG TAB PO SCH (21:55)
[2020-12-16] MEDS: ATORVASTATIN 40 MG TAB PO SCH (21:55)
[2020-12-16] MEDS: FAMOTIDINE 20 MG TAB PO SCH (21:55)
[2020-12-16] MEDS: INSULIN DETEMIR (LEVEMIR) 100 UNIT/ML SYR SQ SCH (21:55)
[2020-12-16] MEDS: MELATONIN 1 MG TAB PO SCH (22:04)
[2020-12-16] MEDS: BISOPROLOL 5 MG TAB PO SCH (22:05)
[2020-12-17 01:59] LABS: Glucose,Whole Blood 154 mg/dL (75-99)
[2020-12-17 06:29] LABS: Glucose,Whole Blood 167 mg/dL (75-99)
[2020-12-17] MEDS: methylPREDNISolone SOD SUCCI 125 MG/2 ML VIAL IV SCH ×3 (06:45→17:59)
[2020-12-17] MEDS: INSULIN ASPART (NovoLOG) 100 UNIT/ML VIAL SQ SCH ×7 (06:46→21:06)
--- NOTE | 2020-12-17 08:21 | XR ---
EXAMINATION TYPE: XR chest 1V DATE OF EXAM: 12/17/2020 COMPARISON: Prior chest x-ray 12/15/2020 HISTORY: Covid pneumonia TECHNIQUE: Single frontal view of the chest is obtained. FINDINGS: Bilateral airspace disease is again seen. No evident pneumothorax or pleural effusion. Car diac mediastinal silhouette is stable. Aorta is dense. There are overlying leads. IMPRESSION: Findings consistent with patient's history of pneumonia.
[2020-12-17] MEDS: ALBUTEROL HFA INHALER INHALATION SCH ×4 (08:49→19:24)
[2020-12-17] MEDS: AZITHROMYCIN 250 MG TAB PO SCH (09:52)
[2020-12-17] MEDS: LINAGLIPTIN 5 MG TABLET PO SCH (09:52)
[2020-12-17] MEDS: ASCORBIC ACID 500 MG TAB PO SCH (09:52)
[2020-12-17] MEDS: COLCHICINE 0.6 MG EACH PO SCH ×2 (09:52→21:06)
[2020-12-17] MEDS: TAMSULOSIN 0.4 MG CAP.ER.24H PO SCH (09:52)
[2020-12-17] MEDS: CYANOCOBALAMIN 500 MCG TAB PO SCH (09:52)
[2020-12-17] MEDS: ZINC SULFATE 220 MG CAP PO SCH (09:52)
[2020-12-17] MEDS: CHOLECALCIFEROL 25 MCG (1000 IU) TABLET PO SCH (09:52)
[2020-12-17] MEDS: NON FORMULARY DRUG (Dulaglutide [Trulicity] 0.75 MG/0.5 ML Pen.Injctr) SQ SCH (09:58)
[2020-12-17] MEDS: NON FORMULARY DRUG (Omega-3 Acid Ethyl Esters [Lovaza] 1 GM Capsule) PO SCH ×2 (09:58→17:54)
--- NOTE | 2020-12-17 10:12 | P.PN ---
Subjective Progress Note Date: 12/17/20 Acute hypoxic respiratory failure secondary to previous CoVID 19 pneumonia 89-year-old male with a history of multiple medical problems, including atrial fibrillation, and hyperlipidemia, and hypertension, who presents to the emergency department on 12/08/2020, at 1259, complaining of shortness of breath. He apparently tested positive for coronavirus, on November 16. Since that time, he's had progressive difficulty breathing. Apparently according to the [facility] staff, his oxygen requirements went up, and his saturations went down. For that reason, he was directed to the emergency department. He was seen there and admitted with a diagnosis of COVID 19 pneumonia. Currently, the patient's on O2 at 6 L. He has a history of atrial fibrillation, diabetes mellitus, hyperlipidemia, hypertension, congestive heart failure, osteoarthritis, syncope, carotid artery disease, and skin cancer. Currently, his white count is 7.2, hemoglobin 11.6, hematocrit 35.5, and platelet count 180,000. His PT was 34 with an INR of 3.5 and his d-dimer was greater than 34. Sodium was 139, potassium 5.1, chloride 110, CO2 21, anion gap 8, and a BUN was 59 and the creatinine was 1.74. The patient's C-reactive protein was 258, N-terminal proBNP was 3550, and his troponin was 0.067. Progress note dated 12/10/2020. 89-year-old male with history of multiple medical problems including CHF, atrial fibrillation, and hyperlipidemia, and hypertension, who presented to the emergency department on December 08. He came in complaining of shortness of breath. He did test positive for COVID 19 on November 16. Apparently he's had progressive worsening of his breathing at the [facility], and his oxygen re quirements went up, and his saturations went down. For that reason he was brought to the ER when he was admitted to the hospital. He is currently doing about the same today. He is on between 5-6 L by nasal cannula. He is not receiving any IV fluids. He is not a particularly good historian. It's hard to gauge how he is feeling today but he does look relatively stable. Currently, he is on 6 L nasal cannula and saturations are between 90 and 95%. Labs from today include a PT of 44.7, INR 4.6, and a glucose of 295. Chest x-ray from December 08 was reviewed. Medications are reviewed. The patient is seen today 12/11/2020 in follow-up on the selective care unit. He is currently awake and alert in no acute distress. He is resting comfortably in bed. He is dyspneic with minimal exertion. He is still requiring 10 L high flow nasal cannula to maintain O2 saturation in the low 90s. He's been afebrile. Chest x-ray reveals scattered bilateral airspace infiltrates without any significant change compared to previous. Blood culture reveals no growth to date. White count 11.5. Hemoglobin 12.2. INR 3.7. Sodium 138. Potassium 5.1. Creatinine 1.60. He remains on Decadron, vitamin supplements, warfarin. The patient is seen today 12/12/2020 in follow-up on the selective care unit. He is currently awake and alert in no acute distress. He is still requiring 10 L high flow nasal cannula. He has a loose congested cough. Not much improvement. He is currently afebrile. Blood cultures reveal no growth. INR 2.4. Glucose 193. He remains on IV Solu-Medrol, bronchodilators, colchicine, vitamin supplements, antibiotics. Chest x-ray continues to show persistent bilateral multifocal acute opacities secondary to CoVID 19 infection. No significant change. The patient is seen December 13 2020 in follow-up on the selective care unit. He is currently resting comfortably in bed. Awake and alert. He continues to require increasing amounts of oxygen to maintain O2 saturations in the 90s. He is on 15 L high flow now. Chest x-ray continues to show persistent bilateral m ultifocal opacities. He remains on IV Solu-Medrol, bronchodilators, colchicine, vitamin supplements, antibiotics. Blood cultures reveal no growth. INR 3.0. Glucose 287. The patient is seen today 12/14/2020 in follow-up on the selective care unit. He remains awake and alert. No acute distress. Maintaining O2 saturations in the 90s on 15 L high flow nasal cannula. Blood culture reveals no growth. White count 16.5. Hemoglobin 13.4. Platelets 145. INR 7.2. Sodium 138. Potassium 5.4. Creatinine 1.48. He remains on IV Solu-Medrol, bronchodilators, colchicine, vitamin supplements, antibiotics. On 12/15/2020, the patient is seen for a follow-up. The patient remains on high flow oxygen at 15 L per minute cannula. On today's evaluation, she is essentially the same as yesterday. Her white cell count is elevated at 19 with a hemoglobin of 12.6. The patient continues to be toxic on Coumadin and her INR is up to 8.6 and the warfarin is on hold. The patient's BNP is at 71 with a cr eatinine of 1.25 and this is improving compared to yesterday. The liver function tests are essentially within normal limits. In terms of treatment, the patient remains on IV Solu-Medrol 60 mg every 6 hours and the patient is also on colchicine, zinc sulfate and the patient is on empiric antibiotic coverage with Zithromax. Blood cultures been negative. The chest x-ray that was done on 12/12/2020 showed diffuse bilateral pulmonary infiltrates, peripheral most on the right and he was given a dose of vitamin K 5 mg IV On today's evaluation of 12/16/2020 the patient is being seen for a follow-up. He is a case of malignancy related pneumonia. The patient is currently on 50 L about 2 by nasal cannula. His LDH level is up from yesterday is down to 1650 and his CRP level is down to 6.9. Creatinine is stable at 1.3. The patient was given a total of 5 mg of vitamin K and his INR is down to 1.5. No new complaints. Weak cough. Unable to bring up much sputum. He remains on Levemir insulin 45 units in addition to a scale and NovoLog 7 units 3 times a day with meals. The patient is on IV Solu-Medrol 60 mg every 6 hours. He is also on colchicine 0.6 mg by mouth twice a day. The chest x-ray from yesterday was noted and it showed persistent but improving infiltrates in both lung godfrey. On today's evaluation of 12/17/2020, the patient is being seen in follow-up. He has been weaned down to 11 L of oxygen by nasal cannula. Doing well. Inflammatory markers have not been measured today. There were down trending from yesterday. He is still on IV Solu-Medrol 60 mg every 6 hours. He is also on colchicine 0.6 mg twice a day.. Chest x-rays showing some limited improvement in the left lung base in terms of the bilateral pulmonary infiltration.The patient will be restarted back on his warfarin. His labs from today are not available including the PT/INR and this is still pending for now. Otherwise, his communicating. He is in bed. His resting comfortably. No signs of any respiratory distress. We'll cut down his FiO2 further. He is on Levemir insulin for blood sugar control at 45 units and he is also on a NovoLog 7 units 3 times a day with meals in addition to a scale. Objective - Vital Signs Vital signs: Vital Signs Temp 97.3 F L 12/17/20 08:00 Pulse 75 12/17/20 08:00 Resp 18 12/17/20 08:00 BP 125/62 12/17/20 08:00 Pulse Ox 96 12/17/20 08:00 Intake & Output 12/16/20 12/17/20 12/17/20 18:59 06:59 18:59 Intake Total 976 596 Balance 976 596 Weight 80 kg Intake: Oral 976 596 Other: Voiding Method Diaper Diaper Diaper # Voids 3 1 1 # Bowel Movements 2 1 1 - Exam GENERAL EXAM: Alert, 89-year-old gentleman, on 11 L high flow nasal cannula, comfortable in no apparent distress. HEAD: Normocephalic. EYES: Normal reaction of pupils, equal size. NOSE: Clear with pink turbinates. THROAT: No erythema or exudates. NECK: No masses, no JVD. CHEST: No chest wall deformity. LUNGS: Equal air entry with bilateral scattered rhonchi. CVS: S1 and S2 normal with no audible murmur, regular rhythm. ABDOMEN: No hepatosplenomegaly, normal bowel sounds, no guarding or rigidity. SPINE: No scoliosis or deformity SKIN: No rashes CENTRAL NERVOUS SYSTEM: No focal deficits, tone is normal in all 4 extremities. EXTREMITIES: There is no peripheral edema. No clubbing, no cyanosis. Peripheral pulses are intact. - Labs CBC & Chem 7: 12/16/20 07:33 12/16/20 07:33 Labs: Abnormal Lab Results - Last 24 Hours (Table) 12/16/20 12/16/20 12/16/20 Range/Units 11:48 16:47 20:14 POC Glucose (mg/dL) 181 H 211 H 167 H (75-99) mg/dL 12/17/20 12/17/20 Range/Units 01:57 06:28 POC Glucose (mg/dL) 154 H 167 H (75-99) mg/dL Assessment and Plan Plan: 1 Acute hypoxemic respiratory failure, progressive, in a patient with a prior diagnosis of COVID 19 infection on November 16. Currently on 13L high flow nasal cannula. The patient is currently on high flow O2 in addition to IV solumedrol. Chest x-ray from 12/15/2020 showed improvement in the bilateral pulmonary infiltrates. The patient remains on the same regimen for now. 2 History of atrial fibrillation. Anticoagulated with warfarin. Warfarin is currently on hold and INR is down to 1.5 3 History of chronic diastolic congestive heart failure. Preserved left ventricular systolic function. 4 Moderate aortic stenosis. 5 Moderate pulmonary hypertension. 6 History of essential hypertension. 7 History of hyperlipidemia. 8 History of osteoarthritis. 9 History of syncope. 10 History of carotid artery disease. 11 History of skin cancer. 12 Mild dementia. 13 Coumadin induced coagulopathy, treated and her INR is down to 1.5, awaiting for today's INR to make further adjustments on his Coumadin dose 14 Poor overall functional performance based on the above-mentioned multiple comorbidities Plan: Start Coumadin at a lower dose and monitor daily PT/INR, pharmacy to dose Repeat chest x-ray in a.m.showing limited improvement In the bilateral pulmonary infiltrates LDH and CRP and these are improving baof these to be repeated tomorrow continue the current treatment plan Very slow to progress Prognosis is poor Titrate down the FiO2 as tolerated, currently on 11 L by nasal cannula, and he should be able to wean down even further knowing that his pulse ox is above 95% DO NOT RESUSCITATE/DO NOT INTUBATE CODE STATUS We will continue to follow
[2020-12-17 10:44] LABS: INR 1.4 (<1.2); Prothrombin Time 14.6 sec (9.0-12.0)
[2020-12-17 11:35] LABS: Basophils # (A) 0.1 k/uL (0-0.2); Basophils % (A) 0 %; Eosinophils % (A) 0 %; HCT 45.6 % (39.0-53.0); HGB 14.5 gm/dL (13.0-17.5); Lymphocytes % (A) 4 %; MCH 31.8 pg (25.0-35.0); MCHC 31.9 g/dL (31.0-37.0); MCV 99.9 fL (80.0-100.0); Macrocytosis Slight; Mean Platelet Volume 13.2; Monocytes # (A) 1.4 k/uL (0-1.0); Monocytes % (A) 5 %; Neutrophils % (A) 90 %; RBC 4.57 m/uL (4.30-5.90); WBC 26.7 k/uL (3.8-10.6)
[2020-12-17 11:47] LABS: African American GFR (CKD) 65 (>60 ml/min/1.73 sqM); Anion Gap 7 mmol/L; Blood Urea Nitrogen 63 mg/dL (9-20); C Reactive Protein <5.0 mg/L (<10.0); Calcium 7.7 mg/dL (8.4-10.2); Carbon Dioxide 20 mmol/L (22-30); Chloride 108 mmol/L (98-107); Glucose 124 mg/dL (74-99); Non-African American GFR(CKD) 56 (>60 ml/min/1.73 sqM); Potassium 5.4 mmol/L (3.5-5.1); Sodium 135 mmol/L (137-145)
[2020-12-17 12:01] LABS: Glucose,Whole Blood 150 mg/dL (75-99)
[2020-12-17 12:08] LABS: LDH >2150 U/L (313-618)
[2020-12-17 12:15] LABS: Toxic Granulation Present
[2020-12-17 12:16] LABS: Large Platelets Present; Poikilocytosis (M) Present
[2020-12-17 12:17] LABS: Platelet Count 86 k/uL (150-450)
[2020-12-17 13:20] LABS: Appearance,Urine Clear (Clear); Bilirubin,Urine Negative (Negative); Blood,Urine Negative (Negative); Color,Urine Yellow; Glucose,Urine (UA) Negative (Negative); Ketones,Urine Negative (Negative); Leukocyte Esterase,Urine Negative (Negative); Nitrite,Urine Negative (Negative); Protein,Urine Trace (Negative); Specific Gravity,Urine 1.021 (1.001-1.035); Urobilinogen,Urine <2.0 mg/dL (<2.0)
--- NOTE | 2020-12-17 14:32 | P.CRDCN ---
History of Present Illness Consult date: 12/17/20 History of present illness: CHIEF COMPLAINT: Pauses HISTORY OF PRESENT ILLNESS: This is a 89-year-old male with a past medical history significant for atrial fibrillation/flutter, COPD, hypertension, hyperlipidemia, COPD, right carotid stenosis. It is unknown if the patient follows with a trust advisor. We have been asked to see the patient in consultation for pauses on telemetry. Patient is currently [facility] to the [facility] secondary to Covid pneumonia. Telemetry tracings reviewed revealing atrial fibrillation with pauses less than 3 seconds. Patient is currently on beta kevin therapy. DIAGNOSTICS: EKG reveals atrial fibrillation with controlled ventricular rate Chest xray findings consistent with patient's history of pneumonia. Laboratory data: WBC 26.7. Hemoglobin 14.5. Platelet count 86. INR 1.4. Sodium 135. Potassium 5.4. BUN 63. Creatinine 1.16. Current home cardiac medications include lisinopril 20 mg daily, Coumadin 3 mg Tuesday and 4 mg Tuesday and Tuesday, Lasix 40 mg daily, digoxin 0.125 mg daily, Bisoprolol 5 mg daily, Lipitor 40 mg daily Echocardiogram completed revealed ejection fraction 50-55%, mild aortic regurgitation, moderate aortic stenosis, [id number] mitral regurgitation, and moderate pulmonary hypertension REVIEW OF SYSTEMS: Thorough review of systems not completed secondary to limited evaluation/examination and due to Covid19 PHYSICAL EXAM: Thorough physical exam not completed secondary to limited evaluation/examination and due to Covid19 ASSESSMENT: Covid 19 Acute hypoxic respiratory failure Chronic persistent atrial fibrillation, on Coumadin, with pauses of less than 3 seconds Supratherapeutic INR, since resolved Subtherapeutic INR Hypertension Hyperlipidemia Diabetes mellitus Dementia PLAN: No need to repeat echocardiogram as this was performed on 12/09/2020 Continue Coumadin per pharmacy dosing. Goal INR 2-3. Discontinue Bisoprolol Patient with pause of less than 3 seconds which is acceptable as patient is in atrial fibrillation No further intervention needed at this time Further recommendations pending patient course Nurse practitioner note has been reviewed by physician. Signing provider agrees with the documented findings, assessment, and plan of care. Past Medical History Past Medical History: Atrial Fibrillation, Atrial Flutter, Coronary Artery Disease (CAD), COPD, Diabetes Mellitus, GERD/Reflux, Hyperlipidemia, Hypert ension, Osteoarthritis (OA), Prostate Disorder, Syncope Additional Past Medical History / Comment(s): 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, 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 History of Any Multi-Drug Resistant Organisms: None Reported Past Surgical History: Joint Replacement, Orthopedic Surgery Additional Past Surgical History / Comment(s): BILAT HIPS REPLACED, RIGHT KNEE ARTHROPLASTY Past Anesthesia/Blood Transfusion Reactions: No Reported Reaction Past Psychological History: No Psychological Hx Reported, Schizophrenia Additional Psychological History / Comment(s): 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 Past Alcohol Use History: None Reported Past Drug Use History: None Reported - Past Family History Father Family Medical History: Coronary Artery Disease (CAD) Mother Family Medical History: Coronary Artery Disease (CAD) Brother(s) Family Medical History: Diabetes Mellitus Additional Family Medical History / Comment(s): Omari sotomayor Son(s) Family Medical History: Diabetes Mellitus Additional Family Medical History / Comment(s): Omari sotomayor Medications and Allergies Home Medications Medication Instructions Recorded Confirmed Type Digoxin [Lanoxin] 0.125 mg PO DAILY@0604/01/14 12/08/20 History Acetaminophen Tab [Tylenol] 650 mg PO Q4H PRN 12/08/20 12/08/20 History Albuterol Sulfate [Ventolin HFA] 2 puff INHALATION RT-QID 12/08/20 12/08/20 History Atorvastatin [Lipitor] 40 mg PO HS@209912/08/20 12/08/20 History Bisoprolol [Zebeta] 5 mg PO HS@2100 12/08/20 12/08/20 History Caldesene Powder 1 applic TOPICAL BID 12/08/20 12/08/20 History Cyanocobalamin [Vitamin B-12] 500 mcg PO DAILY@79912/08/20 12/08/20 History Dulaglutide [Trulicity] 0.75 mg SQ WE@79912/08/20 12/08/20 History Ergocalciferol [Vitamin D2 (1250 1,250 mcg PO TU@79912/08/20 12/08/20 History Mcg = 99369 Iu)] Furosemide [Lasix] 40 mg PO DAILY@0800 12/08/20 12/08/20 History Glucerna Shake 120 ml PO TID@0800,1200,1700 12/08/20 12/08/20 History Hydrocortisone Cream 1 applic TOPICAL Q12H PRN 12/08/20 12/08/20 History [Hydrocortisone 2.5% Cream] INSULIN LISPRO (humaLOG) [humaLOG] 16 unit SQ TID@0800,1100,1700 12/08/20 History INSULIN LISPRO (humaLOG) [humaLOG] See Protocol SQ ACHS 12/08/20 12/08/20 History Insulin Glargine,Hum.rec.anlog 74 units SQ HS@209912/08/20 12/08/20 History [Toujeo Solostar] Ipratropium-Albuterol Nebulize 3 ml INHALATION RT-QID 12/08/20 12/08/20 History [Duoneb 0.5 mg-3 mg/3 ml Soln] Levofloxacin [Levaquin] 250 mg PO DAILY@1200 12/08/20 12/08/20 History Linagliptin [Tradjenta] 5 mg PO DAILY@0800 12/08/20 12/08/20 History Magnesium Hydroxide [Milk of 7,200 mg PO Q48H PRN 12/08/20 12/08/20 History Magnesia Concentrate] Melatonin 1 mg PO HS@209912/08/20 12/08/20 History Na Phos,M-B/Na Phos,Di-Ba [Fleet 133 ml RECTAL DAILY PRN 12/08/20 12/08/20 H istory Adult] [place]-3 Acid Ethyl Esters [Lovaza] 2 gm PO BID@0800,1700 12/08/20 12/08/20 Hist ory Ondansetron [Zofran] 4 mg PO Q6H PRN 12/08/20 12/08/20 History Tamsulosin [Flomax] 0.4 mg PO DAILY@0800 12/08/20 12/08/20 History Warfarin Sodium 4 mg PO MOWE@0 12/08/20 12/08/20 History Warfarin [Coumadin] 2 mg PO HS@169912/08/20 12/08/20 History Warfarin [Coumadin] 3 mg PO SUTUTHFRSA@1700 12/08/20 12/08/20 History bisacodyL [Bisacodyl] 10 mg RECTAL DAILY PRN 12/08/20 12/08/20 History guaiFENesin [guaiFENesin Oral 200 mg PO Q4H PRN 12/08/20 12/08/20 History Solution] lisinopriL [Zestril] 20 mg PO HS@2130 12/08/20 12/08/20 History Allergies Allergy/AdvReac Type Severity Reaction Status Date / Time adhesive Allergy Unknown Verified 12/08/20 14:17 Physical Exam Vitals: Vital Signs Temp Pulse Resp BP Pulse Ox 12/17/20 12:00 97.6 F 67 18 147/67 92 L 12/17/20 08:00 97.3 F L 75 18 125/62 96 12/17/20 03:29 68 19 132/63 98 12/17/20 02:00 68 20 12/16/20 23:45 68 20 134/70 97 12/16/20 20:00 97.3 F L 73 21 144/70 100 12/16/20 16:00 97.9 F 73 18 127/57 92 L Intake and Output 12/16/20 12/17/20 12/17/20 22:59 06:59 14:59 Intake Total 500 596 Balance 500 596 Intake: Oral 500 596 Other: Voiding Method Diaper Diaper Diaper # Voids 3 1 1 # Bowel Movements 1 1 Weight 80 kg Results 12/17/20 09:37 12/17/20 09:37 Cardiac Enzymes 12/17/20 Range/Units 09:37 Lactate Dehydrogenase >2150 H (313-618) U/L Coagulation 12/17/20 Range/Units 09:37 PT 14.6 H (9.0-12.0) sec CBC 12/17/20 Range/Units 09:37 WBC 26.7 H (3.8-10.6) k/uL RBC 4.57 (4.30-5.90) m/uL Hgb 14.5 (13.0-17.5) gm/dL Hct 45.6 (39.0-53.0) % Plt Count 86 L (150-450) k/uL Comprehensive Metabolic Panel 12/17/20 Range/Units 09:37 Sodium 135 L (137-145) mmol/L Potassium 5.4 H (3.5-5.1) mmol/L Chloride 108 H (98-107) mmol/L Carbon Dioxide 20 L (22-30) mmol/L BUN 63 H (9-20) mg/dL Creatinine 1.16 (0.66-1.25) mg/dL Glucose 124 H (74-99) mg/dL Calcium 7.7 L (8.4-10.2) mg/dL Current Medications Generic Name Dose Route Start Last Admin Trade Name Freq PRN Reason Stop Dose Admin Acetaminophen 650 mg 12/08/20 17:52 Acetaminophen Tab 325 Mg Tab PO Q4H PRN Fever Albuterol Sulfate 2 puff 12/08/20 20:00 12/17/20 12:04 Albuterol Hfa Inhaler INHALATION 2 puff RT-QID JEFF Administration Ascorbic Acid 1,000 mg 12/10/20 09:00 12/17/20 09:52 Ascorbic Acid 500 Mg Tab PO 1,000 mg DAILY JEFF Administration Atorvastatin Calcium 40 mg 12/08/20 21:00 12/16/20 21:55 Atorvastatin 40 Mg Tab PO 40 mg HS@2100 JEFF Administration Azithromycin 250 mg 12/11/20 09:00 12/17/20 09:52 Azithromycin 250 Mg Tab PO 250 mg DAILY JEFF Administration Bisacodyl 10 mg 12/08/20 17:52 Bisacodyl 10 Mg Supp RECTAL DAILY PRN Constipation Cholecalciferol 100 mcg 12/10/20 09:00 12/17/20 09:52 Cholecalciferol 25 Mcg (1000 Iu) Tablet PO 100 mcg DAILY JEFF Administration Colchicine 0.6 mg 12/11/20 21:00 12/17/20 09:52 Colchicine 0.6 Mg Each PO 0.6 mg BID JEFF Administration Cyanocobalamin 500 mcg 12/09/20 08:00 12/17/20 09:52 Cyanocobalamin 500 Mcg Tab PO 500 mcg DAILY@0800 [facility] Administration Ergocalciferol 1,250 mcg 12/09/20 08:00 12/16/20 08:55 Ergocalciferol 1,250 Mcg (50,000 Iu) Capsule PO 1,250 mcg TU@0800 JEFF Administration Famotidine 20 mg 12/11/20 21:00 12/16/20 21:55 Famotidine 20 Mg Tab PO 20 mg HS JEFF Administration Guaifenesin 200 mg 12/08/20 17:52 Guaifenesin Syrup 100mg/5ml 200 Mg/10 Ml Cup PO Q4H PRN Cough Insulin Aspart 0 unit 12/09/20 17:30 12/17/20 12:55 Insulin Aspart (Novolog) 100 Unit/Ml Vial SQ 1 unit ACHS JEFF Administration Protocol Insulin Aspart 7 unit 12/10/20 17:00 12/17/20 12:56 Insulin Aspart (Novolog) 100 Unit/Ml Vial SQ 7 unit TID@0800,1100,1700 JEFF Administration Insulin Detemir 45 unit 12/12/20 21:00 12/16/20 21:55 Insulin Detemir (Levemir) 100 Unit/Ml Syr SQ 45 unit HS@2100 JEFF Administration Linagliptin 5 mg 12/09/20 08:00 12/17/20 09:52 Linagliptin 5 Mg Tablet PO 5 mg DAILY@0800 [facility] Administration Lisinopril 20 mg 12/08/20 21:30 12/16/20 21:55 Lisinopril 20 Mg Tab PO 20 mg HS@2130 JEFF Administration Magnesium Hydroxide 7,200 mg 12/08/20 17:52 Magnesium Hydroxide 2,400 Mg/10 Ml Cup PO Q48H PRN Constipation Melatonin 1 mg 12/08/20 21:00 12/16/20 22:04 Melatonin 1 Mg Tab PO 1 mg HS@2100 JEFF Administration Methylprednisolone Sodium Succinate 60 mg 12/11/20 18:00 12/17/20 14:14 Methylprednisolone Sod Succi 125 Mg/2 Ml Vial IV 60 mg Q6HR JEFF Administration Miscellaneous Information 1 each 12/09/20 14:25 Warfarin Per Pharmacy MISCELLANE DIRECTED PRN Per Protocol Protocol Non-Formulary Medication 0.75 mg 12/10/20 08:00 12/17/20 09:58 Dulaglutide [Trulicity] SQ Not Given WE@0800 [facility] Non-Formulary Medication 2 gm 12/09/20 08:00 12/17/20 09:58 [place]-3 Acid Ethyl Esters [Lovaza] PO Not Given BID@0800,1700 [facility] Ondansetron HCl 4 mg 12/08/20 17:52 Ondansetron 4 Mg Tab PO Q6H PRN Nausea And Vomiting Tamsulosin HCl 0.4 mg 12/09/20 08:00 12/17/20 09:52 Tamsulosin 0.4 Mg Cap.Er.24h PO 0.4 mg DAILY@0800 [facility] Administration Warfarin Sodium 2.5 mg 12/17/20 18:00 Warfarin 2.5 Mg Tab PO 02/10/21 18:01 ONCE@1800 ONE Zinc Sulfate 220 mg 12/10/20 09:00 12/17/20 09:52 Zinc Sulfate 220 Mg Cap PO 220 mg DAILY JEFF Administration Intake and Output 12/16/20 12/17/20 12/17/20 22:59 06:59 14:59 Intake Total 500 596 Balance 500 596 Intake: Oral 500 596 Other: Voiding Method Diaper Diaper Diaper # Voids 3 1 1 # Bowel Movements 1 1 Weight 80 kg 12/17/20 09:37 12/17/20 09:37
[2020-12-17] MEDS ORDERED: FUROSEMIDE 10 MG/ML 4 ML VIAL IV STA (14:40)
--- NOTE | 2020-12-17 14:57 | PN ---
PROGRESS NOTE Patient is seen for followup for acute kidney injury. He is currently being treated for COVID pneumonia. The patient is maintained on IV fluids at 50 mL an hour. He denies any significant complaints. Oral intake is slowly increased. PHYSICAL EXAMINATION: On examination today, blood pressure is 125/62, heart rate 75 per minute. He is afebrile. Examination of lower extremities shows edema 1+ bilaterally. STUFFER exam grossly intact. LABS: Labs show sodium of 135, potassium 5.4, chloride 108. BUN 63, serum creatinine 1.16. ASSESSMENT: 1. Acute kidney injury, now improved with creatinine down to 1.1 from 1.7 on initial admission mostly prerenal. Patient is maintained on IV fluids. He does have some edema. I will discontinue the IV fluids and repeat labs in a.m. 2. Mild hyperkalemia. Rule out urine retention. The patient is maintained on TOO inhibitors. 3. COVID pneumonia. Oxygen requirements are stable. The patient is maintained on steroids. 4. History of diastolic congestive heart failure. 5. Chronic atrial fibrillation. PLAN: Discontinue IV fluids. Check bladder scan to rule out urine retention. Repeat labs in a.m. Check CK level if not checked on admission. MMODL / IJN: [id number] /
--- NOTE | 2020-12-17 15:35 | P.PN ---
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, vascular dementia, patient was diagnosed with COVID-19 at the skilled nursing and he was taken care off with decadron, ABX along with vitamin supplement, was doing fine till recently when he developed to have increased shortness of breath, along with a drop in his O2 saturation, was seen by myself on Tuesday and he was doing relatively ok, his CXR showed bilateral pneumonia, was on Levaquin for possible secondary bacterial infection and his coumadin was on hold due to coagulopathy, today Nicole the Nurse Practitioner at [facility] saw him and she advised me to send him to the ER for worsening shortness of breath and worsening cough, patient was seen and evaluated in the ER at [facility], CXR showed new bilateral pneumonia suggestive of COVID-19, patient was placed on )2 support and was started on Zithromax 250 mg IVPB daily, and we will be maintained on Decadron 6 mg orally daily and we will obtain pulmonary consult, 12/09: Patient is currently pulse oxing 94-95% on 6 L high flow nasal cannula. He has been afebrile since admission, respiratory rate 24, heart rate 84. Echocardiogram reveals EF of 50-55% with moderate concentric left ventricular hypertrophy, moderate aortic stenosis, mild to moderate mitral regurgitation, moderate pulmonary hypertension. WBC 7.2, hemoglobin 11.6. CO2 21, BUN 59 and creatinine 1.74. Blood sugars have been elevated but most recent one is 147. NovoLog scale started. Patient hasn't seen and followed by pulmonary medicine, supplements added. Patient is continued on dexamethasone, azithromycin. INR is 3.5, pharmacy to dose Coumadin /3: Patient has been seen by cardiology and pulmonary medicine. He has been afebrile, currently pulse oxing 93% on 6 L high flow nasal cannula. Respiratory rate in the 20s. Heart rate 69. INR is 4.6. Glucose running between 161 and 295. Blood culture showing no growth after 24 hours. Patient does not have much appetite. He is dyspneic with very little activity. He continues to have cough. 12/11: Decadron was transitioned to IV Solu-Medrol yesterday by pulmonary medicine. Patient continues to have dyspnea and cough. Pulse ox 90-91% on 10 L nasal cannula. He has been afebrile, heart rate 80, respiratory rate 24. CBC 1 1.5, hemoglobin 12.2. INR 3.7. BUN 67 and creatinine 1.6. Blood sugars ran between 94 and 240. Blood culture is no growth. 12/12: Patient is awake and alert. He is currently on 10 L nasal cannula with pulse ox of 91%. He has been afebrile, heart rate 77, blood pressure 139/74. security monitor atrial fibrillation and controlled rate. INR is 2.4. Pharmacy is dosing Coumadin. Blood sugars are 193-225. Levemir will be increased to 45 units at bedtime. Patient denies any fever or chills. He continues to have cough. Patient experiences shortness of breath with minimal activity. Patient is continued on IV Solu-Medrol 60 mg every 6 hours, azithromycin and supplement for Covid 19. 12/15: INR is 8.6 and patient will be ordered for vitamin K 1 dose IV piggyback. Patient states he is not eating much and does not have much appetite. He complains of feeling weak. He has no phlegm production. WBC 19, hemoglobin 12.6, platelet count 128. Electrolytes normal. BUN 71 and creatinine 1.25. Blood sugars running between 139 and 169. Consult added for nephrology for increasing BUN. Repeat chest x-ray reveals persistent but improving infiltrates seen throughout both lung godfrey. 94% on 15 L high flow nasal cannula. He has been afebrile, heart rate in 60s and 70s, blood pressure 143/67. 12/16: Patient continues to not eat very much with low appetite. Repeat INR today is at 1.5 and pharmacy is dosing Coumadin. Blood sugars are improved after changes made yesterday. He has been afebrile, heart rate 73, blood pressure 157/67, pulse ox 94% on 13 L high flow nasal cannula. WBC 22.4, hemoglobin 12.6, platelet count 137. BUN 64 and creatinine 1.32. Blood sugars running between 148 in the 181. LDH 1650. Alkaline phosphatase 171. 12/17: Patient lost IV access this morning and midline was ordered. He is currently pulse oxing 92% on 3 L nasal cannula. Patient states he has had multiple bowel movements this morning. Documented 4 bowel movements today. Stools will be sent for C. difficile toxin. Noted pauses on conveyor monitor and cardiology consult has been added. Bisoprolol discontinued. INR 1.4 and patient received Coumadin 5 mg last evening. WBC 26.7. Sodium 135, potassium 5.4, chloride 108, CO2 20, BUN 63 and creatinine 1.16. Blood sugars are running between 150 and 167. LDH is greater than 2150. C-reactive protein is less than 5. Urinalysis negative for infection. Patient noted to have increased edema and Lasix 40 mg 1 ordered. Patient continues to have decreased appetite. Objective - Vital Signs Vital signs: Vital Signs Temp 97.6 F 12/17/20 12:00 Pulse 67 12/17/20 12:00 Resp 18 12/17/20 12:00 BP 147/67 12/17/20 12:00 Pulse Ox 92 L 12/17/20 12:00 Intake & Output 12/16/20 12/17/20 12/17/20 18:59 06:59 18:59 Intake Total 976 596 Balance 976 596 Weight 80 kg Intake: Oral 976 596 Other: Voiding Method Diaper Diaper Diaper # Voids 3 1 1 # Bowel Movements 2 1 1 - Exam Review of Systems Constitutional: Reports fatigue, Reports night sweats, Reports generalized weakness Eyes: bilateral blurred vision, bilateral decreased vision Ears: bilateral: decreased hearing Ears, nose, mouth and throat: Denies dysphagia, Denies neck lump, Denies sore throat Cardiovascular: Reports decreased exercise tolerance, Reports dyspnea on exer tion, reports edema, Reports irregular heart beat, Reports shortness of breath, Denies chest pain, Denies orthopnea, Denies rapid heart beat, Denies syncope Respiratory: Reports congestion, Reports cough, Reports cough with sputum, Reports dyspnea, Reports home oxygen, Reports respiratory infections, Reports wheezing, Denies sleep apnea, Denies snoring Gastrointestinal: Reports nausea, Denies abdominal pain, Denies belching, Denies BRBPR, Denies change in bowel habits, Denies diarrhea, reports loss of appetite, Denies melena, Denies vomiting Genitourinary: Reports nocturia, Denies dysuria Musculoskeletal: Reports gait dysfunction, Reports morning stiffness Musculoskeletal: absent: ankle pain, ankle stiffness, elbow pain, elbow stiffness, elbow swelling, foot pain, foot stiffness, foot swelling, hand pain, hand stiffness, hand swelling, hip pain, hip stiffness, hip swelling, knee pain, knee stiffness, knee swelling, shoulder pain, shoulder stiffness, shoulder sw elling, wrist pain, wrist stiffness, wrist swelling Integumentary: Denies pruritus, Denies rash Neurological: Reports confusion, Reports gait dysfunction, Reports memory loss, Reports weakness, Reports visual changes Psychiatric: Denies anxiety, Denies depression Endocrine: Denies fatigue, Denies weight change Physical examination: General: this is an 89 year old sitting up in bed with minimal respiratory distress at rest. HEENT: head is atraumatic normocephalic pupils were equal round reactive to light and accommodations extra ocular muscle movements were intact. mucous membranes of the mouth are moist. Neck: supple no JVP, decreased carotid upstrokes bilaterally. Chest: decrease breath sounds at the bases with few ronchi, minimal expiratory wheezes, minimal intercostal retractions. Heart: first heart sound is depressed, second heart sound is normal irregularly irregular there is VALARIE 2/6 located in the left sternal border. Abdomen: soft non tender, non distended positive bowel sounds. Extremities: there is 1+ bilateral edema no calf tenderness , DP +1 bilaterally. Neurologic examination: patient is awake alert and oriented X 2 CN II-XII are grossly intact, muscle power 4/5 in bilateral upper extremities and 3/5 in bilateral lower extremities, deep tendon reflexes were depressed. - Labs CBC & Chem 7: 12/17/20 09:37 12/17/20 09:37 Labs: Abnormal Lab Results - Last 24 Hours (Table) 12/16/20 12/16/20 12/17/20 Range/Units 16:47 20:14 01:57 WBC (3.8-10.6) k/uL Plt Count (150-450) k/uL Neutrophils # (1.3-7.7) k/uL Monocytes # (0-1.0) k/uL PT (9.0-12.0) sec INR (<1.2) Sodium (137-145) mmol/L Potassium (3.5-5.1) mmol/L Chloride (98-107) mmol/L Carbon Dioxide (22-30) mmol/L BUN (9-20) mg/dL Glucose (74-99) mg/dL POC Glucose (mg/dL) 211 H 167 H 154 H (75-99) mg/dL Calcium (8.4-10.2) mg/dL Lactate Dehydrogenase (313-618) U/L Urine Protein (Negative) 12/17/20 12/17/20 12/17/20 Range/Units 06:28 09:37 09:37 WBC (3.8-10.6) k/uL Plt Count (150-450) k/uL Neutrophils # (1.3-7.7) k/uL Monocytes # (0-1.0) k/uL PT 14.6 H (9.0-12.0) sec INR 1.4 H (<1.2) Sodium 135 L (137-145) mmol/L Potassium 5.4 H (3.5-5.1) mmol/L Chloride 108 H (98-107) mmol/L Carbon Dioxide 20 L (22-30) mmol/L BUN 63 H (9-20) mg/dL Glucose 124 H (74-99) mg/dL POC Glucose (mg/dL) 167 H (75-99) mg/dL Calcium 7.7 L (8.4-10.2) mg/dL Lactate Dehydrogenase >2150 H (313-618) U/L Urine Protein (Negative) 12/17/20 12/17/20 12/17/20 Range/Units 09:37 11:59 13:00 WBC 26.7 H (3.8-10.6) k/uL Plt Count 86 L (150-450) k/uL Neutrophils # 24.0 H (1.3-7.7) k/uL Monocytes # 1.4 H (0-1.0) k/uL PT (9.0-12.0) sec INR (<1.2) Sodium (137-145) mmol/L Potassium (3.5-5.1) mmol/L Chloride (98-107) mmol/L Carbon Dioxide (22-30) mmol/L BUN (9-20) mg/dL Glucose (74-99) mg/dL POC Glucose (mg/dL) 150 H (75-99) mg/dL Calcium (8.4-10.2) mg/dL Lactate Dehydrogenase (313-618) U/L Urine Protein Trace H (Negative) Assessment and Plan Plan: 1. Acute hypoxic respiratory failure due to COVID-19 pneumonia. we will continue IV Solu-Medrol 60 mg IV every 6 hours, Zithromax 250 mg po daily, O2 support , Ventolin HFA 2 puffs inhalation Q 4 h, colchicine 0.6 mg twice daily, pulmonary consult appreciated. 2. Acute kidney injury on CKD 3a. we will start IVF 0.45 50 cc/h and we will hold lasix and digoxin, monitor CMP. Consult with nephrology. Lasix 40 mg IV push 1 3. Hypertension and hypertensive cardiovascular disease. we will continue with Lisinopril 20 mg orally daily. 4. Hyperlipidemia. we will continue with Lipitor 40 mg orally daily. 5. Diabetes mellitus type 2 uncontrolled with hyperglycemia secondary to steroids. Continue Levemir increased to 45 units at bedtime, continue NovoLog scheduled 7 units 3 times daily with meals, continue NovoLog scale before meals and at bedtime, Tradjenta 5 mg daily. Blood sugars are improved. 6. history of CVA and TIA with left carotid disease. we will continue with Lipitor 40 mg orally daily for secondary CVA prevention. 7. Atrial fibrillation/flutter. we will continue with monitoring, hold coumadin tonight and we will reevaluate in AM. Patient did have some pauses and bisoprolol held. 8. Coagulopathy due to coumadin use and interaction with Levaquin and now Zithromax. we will continue to monitor daily, pharmacy dosing Coumadin. Status post vitamin K. Continue to monitor closely. 9. enlarged prostate. we will continue with Flomax 0.4 mg orally daily. 10. Vitamin d deficiency. we will continue with vitamin D supplement and we will check levels. 11. DVT prophylaxis. we will continue with Bilateral Knee-High Moshe Hose and we will resume coumadin in AM. 12. GI prophylaxis. we will continue with PPI. 13. Discharge plan: back to [facility] possibly later this week Impression and plan of care have been directed as dictated by the signing physician. Monie Melvin nurse practitioner acting as scribe for signing physician.
[2020-12-17 17:16] LABS: Glucose,Whole Blood 163 mg/dL (75-99)
[2020-12-17] MEDS ORDERED: WARFARIN 2.5 MG TAB PO ONE (18:00)
[2020-12-17 21:02] LABS: Glucose,Whole Blood 167 mg/dL (75-99)
[2020-12-17] MEDS: lisinopriL 20 MG TAB PO SCH (21:05)
[2020-12-17] MEDS: FAMOTIDINE 20 MG TAB PO SCH (21:05)
[2020-12-17] MEDS: MELATONIN 1 MG TAB PO SCH (21:06)
[2020-12-17] MEDS: INSULIN DETEMIR (LEVEMIR) 100 UNIT/ML SYR SQ SCH (21:06)
[2020-12-17] MEDS: ATORVASTATIN 40 MG TAB PO SCH (21:06)
[2020-12-18] MEDS: methylPREDNISolone SOD SUCCI 125 MG/2 ML VIAL IV SCH ×5 (00:15→23:37)
[2020-12-18 06:03] LABS: Glucose,Whole Blood 97 mg/dL (75-99)
[2020-12-18] MEDS: INSULIN ASPART (NovoLOG) 100 UNIT/ML VIAL SQ SCH ×7 (06:45→21:27)
[2020-12-18] MEDS: CYANOCOBALAMIN 500 MCG TAB PO SCH (10:01)
[2020-12-18] MEDS: TAMSULOSIN 0.4 MG CAP.ER.24H PO SCH (10:01)
[2020-12-18] MEDS: ASCORBIC ACID 500 MG TAB PO SCH (10:01)
[2020-12-18] MEDS: AZITHROMYCIN 250 MG TAB PO SCH (10:01)
[2020-12-18] MEDS: ZINC SULFATE 220 MG CAP PO SCH (10:01)
[2020-12-18] MEDS: COLCHICINE 0.6 MG EACH PO SCH ×2 (10:01→20:27)
[2020-12-18] MEDS: NON FORMULARY DRUG (Omega-3 Acid Ethyl Esters [Lovaza] 1 GM Capsule) PO SCH ×2 (10:02→17:53)
[2020-12-18] MEDS: CHOLECALCIFEROL 25 MCG (1000 IU) TABLET PO SCH (10:02)
[2020-12-18] MEDS: LINAGLIPTIN 5 MG TABLET PO SCH (10:04)
[2020-12-18] MEDS: ALBUTEROL HFA INHALER INHALATION SCH ×4 (10:10→19:38)
--- NOTE | 2020-12-18 11:57 | P.PN ---
Subjective Progress Note Date: 12/18/20 CHIEF COMPLAINT: Pauses HISTORY OF PRESENT ILLNESS: 12/17/2020 This is a 89-year-old male with a past medical history significant for atrial fibrillation/flutter, COPD, hypertension, hyperlipidemia, COPD, right carotid stenosis. 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 We have been asked to see the patient in consultation for pauses on telemetry. Patient is currently admitted to the hospital secondary to Covid pneumonia. Telemetry tracings reviewed revealing atrial fibrillation with pauses less than 3 seconds. Patient is currently on beta kevin therapy. Echocardiogram completed revealed ejection fraction 50-55%, mild aortic regur gitation, moderate aortic stenosis, [id number] mitral regurgitation, and moderate pulmonary hypertension 12/18/2020 Patients Bisoprolol discontinued yesterday. Patient continues to have some occ asional pauses on telemetry. Longest appears to be 3.2 seconds. Patient is on 6 L nasal cannula with oxygen saturations greater than 92%. Blood pressure 128/60. Heart rate in the 60s. He is afebrile. PHYSICAL EXAM: Thorough physical exam not completed secondary to limited evaluation/examination and due to Covid19 ASSESSMENT: Covid 19 Acute hypoxic respiratory failure Chronic persistent atrial fibrillation, on Coumadin, with pauses of less than 3 seconds Supratherapeutic INR, since resolved Subtherapeutic INR Hypertension Hyperlipidemia Diabetes mellitus Dementia PLAN: No need to repeat echocardiogram as this was performed on 12/09/2020 Continue Coumadin per pharmacy dosing. Goal INR 2-3. Continue to hold Bisoprolol Patients pauses are within acceptable range for someone in atrial fibrillation. No further intervention needed at this time Further recommendations pending patient course Nurse practitioner note has been reviewed by physician. Signing provider agrees with the documented findings, assessment, and plan of care. Objective - Vital Signs Vital signs: Vital Signs Temp 97.2 F L 12/17/20 19:50 Pulse 63 12/18/20 04:00 Resp 19 12/18/20 04:00 BP 128/60 12/18/20 05:30 Pulse Ox 93 L 12/18/20 04:00 Intake & Output 12/17/20 12/18/20 12/18/20 18:59 06:59 18:59 Intake Total 1548 25 180 Output Total 200 Balance 1348 25 180 Weight 77.5 kg Intake: Oral 1548 25 180 Output: Urine 200 Other: Voiding Method Diaper Diaper # Voids 1 1 # Bowel Movements 1 - Labs CBC & Chem 7: 12/17/20 09:37 12/17/20 09:37 Labs: Abnormal Lab Results - Last 24 Hours (Table) 12/17/20 12/17/20 12/17/20 Range/Units 09:37 09:37 11:59 Plt Count 86 L (150-450) k/uL Neutrophils # 24.0 H (1.3-7.7) k/uL Monocytes # 1.4 H (0-1.0) k/uL Sodium 135 L (137-145) mmol/L Potassium 5.4 H (3.5-5.1) mmol/L Chloride 108 H (98-107) mmol/L Carbon Dioxide 20 L (22-30) mmol/L BUN 63 H (9-20) mg/dL Glucose 124 H (74-99) mg/dL POC Glucose (mg/dL) 150 H (75-99) mg/dL Calcium 7.7 L (8.4-10.2) mg/dL Lactate Dehydrogenase >2150 H (313-618) U/L Urine Protein (Negative) 12/17/20 12/17/20 12/17/20 Range/Units 13:00 17:13 20:56 Plt Count (150-450) k/uL Neutrophils # (1.3-7.7) k/uL Monocytes # (0-1.0) k/uL Sodium (137-145) mmol/L Potassium (3.5-5.1) mmol/L Chloride (98-107) mmol/L Carbon Dioxide (22-30) mmol/L BUN (9-20) mg/dL Glucose (74-99) mg/dL POC Glucose (mg/dL) 163 H 167 H (75-99) mg/dL Calcium (8.4-10.2) mg/dL Lactate Dehydrogenase (313-618) U/L Urine Protein Trace H (Negative)
[2020-12-18 12:11] LABS: Glucose,Whole Blood 170 mg/dL (75-99)
--- NOTE | 2020-12-18 13:25 | P.PN ---
Subjective Progress Note Date: 12/18/20 Principal diagnosis: Acute hypoxic respiratory failure secondary to previous CoVID 19 pneumonia 89-year-old male with a history of multiple medical problems, including heart fire, and atrial fibrillation, and hyperlipidemia, and hypertension, who presents to the emergency department on 12/08/2020, at 1259, complaining of shortness of breath. He apparently tested positive for coronavirus, on November 16. Since that time, he's had progressive difficulty breathing. Apparently according to the halfway staff, his oxygen requirements went up, and his saturations went down. For that reason, he was directed to the emergency department. He was seen there and admitted with a diagnosis of COVID 19 pneumonia. Currently, the patient's on O2 at 6 L. He has a history of atrial fibrillation, diabetes mellitus, hyperlipidemia, hypertension, congestive heart failure, osteoarthritis, syncope, carotid artery disease, and skin cancer. Currently, his white count is 7.2, hemoglobin 11.6, hematocrit 35.5, and platelet count 180,000. His PT was 34 with an INR of 3.5 and his d-dimer was greater than 34. Sodium was 139, potassium 5.1, chloride 110, CO2 21, anion gap 8, and a BUN was 59 and the creatinine was 1.74. The patient's C-reactive protein was 258, N-terminal proBNP was 3550, and his troponin was 0.067. Progress note dated 12/10/2020. 89-year-old male with history of multiple medical problems including CHF, atrial fibrillation, and hyperlipidemia, and hypertension, who presented to the emergency department on December 08. He came in complaining of shortness of breath. He did test positive for COVID 19 on November 16. Apparently he's had progressive worsening of his breathing at the halfway, and his oxygen requirements went up, and his saturations went down. For that reason he was brought to the ER when he was admitted to the hospital. He is currently doing about the same today. He is on between 5-6 L by nasal cannula. He is not receiving any IV fluids. He is not a particularly good historian. It's hard to gauge how he is feeling today but he does look relatively stable. Currently, he is on 6 L nasal cannula and saturations are between 90 and 95%. Labs from today include a PT of 44.7, INR 4.6, and a glucose of 295. Chest x-ray from December 08 was reviewed. Medications are reviewed. The patient is seen today 12/11/2020 in follow-up on the selective care unit. He is currently awake and alert in no acute distress. He is resting comfortably in bed. He is dyspneic with minimal exertion. He is still requiring 10 L high flow nasal cannula to maintain O2 saturation in the low 90s. He's been afebrile. Chest x-ray reveals scattered bilateral airspace infiltrates without any significant change compared to previous. Blood culture reveals no growth to date. White count 11.5. Hemoglobin 12.2. INR 3.7. Sodium 138. Potassium 5.1. Creatinine 1.60. He remains on Decadron, vitamin supplements, warfarin. The patient is seen today 12/12/2020 in follow-up on the selective care unit. He is currently awake and alert in no acute distress. He is still requiring 10 L high flow nasal cannula. He has a loose congested cough. Not much improvement. He is currently afebrile. Blood cultures reveal no growth. INR 2.4. Glucose 193. He remains on IV Solu-Medrol, bronchodilators, colchicine, vitamin supplements, antibiotics. Chest x-ray continues to show persistent bilateral multifocal acute opacities secondary to CoVID 19 infection. No significant change. The patient is seen December 13 2020 in follow-up on the selective care unit. He is currently resting comfortably in bed. Awake and alert. He continues to require increasing amounts of oxygen to maintain O2 saturations in the 90s. He is on 15 L high flow now. Chest x-ray continues to show persistent bilateral multifocal opacities. He remains on IV Solu-Medrol, bronchodilators, colchicine, vitamin supplements, antibiotics. Blood cultures reveal no growth. INR 3.0. Glucose 287. The patient is seen today 12/14/2020 in follow-up on the selective care unit. He remains awake and alert. No acute distress. Maintaining O2 saturations in the 90s on 15 L high flow nasal cannula. Blood culture reveals no growth. White count 16.5. Hemoglobin 13.4. Platelets 145. INR 7.2. Sodium 138. Potassium 5.4. Creatinine 1.48. He remains on IV Solu-Medrol, bronchodilators, colchicine, vitamin supplements, antibiotics. On 12/15/2020, the patient is seen for a follow-up. The patient remains on high flow oxygen at 15 L per minute cannula. On today's evaluation, she is essentially the same as yesterday. Her white cell count is elevated at 19 with a hemoglobin of 12.6. The patient continues to be toxic on Coumadin and her INR is up to 8.6 and the warfarin is on hold. The patient's BNP is at 71 with a creatinine of 1.25 and this is improving compared to yesterday. The liver function tests are essentially within normal limits. In terms of treatment, the patient remains on IV Solu-Medrol 60 mg every 6 hours and the patient is also on colchicine, zinc sulfate and the patient is on empiric antibiotic coverage with Zithromax. Blood cultures been negative. The chest x-ray that was done on 12/12/2020 showed diffuse bilateral pulmonary infiltrates, peripheral most on the right and he was given a dose of vitamin K 5 mg IV On today's evaluation of 12/16/2020 the patient is being seen for a follow-up. He is a case of malignancy related pneumonia. The patient is currently on 50 L about 2 by nasal cannula. His LDH level is up from yesterday is down to 1650 and his CRP level is down to 6.9. Creatinine is stable at 1.3. The patient was given a total of 5 mg of vitamin K and his INR is down to 1.5. No new complaints. Weak cough. Unable to bring up much sputum. He remains on Levemir insulin 45 units in addition to a scale and NovoLog 7 units 3 times a day with meals. The patient is on IV Solu-Medrol 60 mg every 6 hours. He is also on colchicine 0.6 mg by mouth twice a day. The chest x-ray from yesterday was noted and it showed persistent but improving infiltrates in both lung godfrey. On today's evaluation of 12/17/2020, the patient is being seen in follow-up. He has been weaned down to 11 L of oxygen by nasal cannula. Doing well. Inflammatory markers have not been measured today. There were down trending fro m yesterday. He is still on IV Solu-Medrol 60 mg every 6 hours. He is also on colchicine 0.6 mg twice a day.. Chest x-rays showing some limited improvement in the left lung base in terms of the bilateral pulmonary infiltration.The patient will be restarted back on his warfarin. His labs from today are not available including the PT/INR and this is still pending for now. Otherwise, his communicating. He is in bed. His resting comfortably. No signs of any respiratory distress. We'll cut down his FiO2 further. He is on Levemir insulin for blood sugar control at 45 units and he is also on a NovoLog 7 units 3 times a day with meals in addition to a scale. The patient is seen today 12/18/2020 in follow-up on the regular medical floor. He is currently sitting up in bed. Awake and alert in no acute distress. He is down to 6 L high flow nasal cannula and maintaining O2 saturation in the 90s. Afebrile. Hemodynamically stable. Blood cultures revealed no growth. Blood glucose 170. He remains on IV Solu-Medrol, colchicine, bronchodilators, vitamin supplements. Anticoagulated with warfarin. Objective - Vital Signs Vital signs: Vital Signs Temp 97.2 F L 12/17/20 19:50 Pulse 63 12/18/20 04:00 Resp 19 12/18/20 04:00 BP 128/60 12/18/20 05:30 Pulse Ox 93 L 12/18/20 04:00 Intake & Output 12/17/20 12/18/20 12/18/20 18:59 06:59 18:59 Intake Total 1548 25 180 Output Total 200 Balance 1348 25 180 Weight 77.5 kg Intake: Oral 1548 25 180 Output: Urine 200 Other: Voiding Method Diaper Diaper # Voids 1 1 # Bowel Movements 1 - Exam GENERAL EXAM: Alert, 89-year-old gentleman, on 6 L high flow nasal cannula, comfortable in no apparent distress. HEAD: Normocephalic. EYES: Normal reaction of pupils, equal size. NOSE: Clear with pink turbinates. THROAT: No erythema or exudates. NECK: No masses, no JVD. CHEST: No chest wall deformity. LUNGS: Equal air entry with bilateral scattered rhonchi. CVS: S1 and S2 normal with no audible murmur, regular rhythm. ABDOMEN: No hepatosplenomegaly, normal bowel sounds, no guarding or rigidity. SPINE: No scoliosis or deformity SKIN: No rashes CENTRAL NERVOUS SYSTEM: No focal deficits, tone is normal in all 4 extremities. EXTREMITIES: There is no peripheral edema. No clubbing, no cyanosis. Peripheral pulses are intact. - Labs CBC & Chem 7: 12/17/20 09:37 12/17/20 09:37 Labs: Abnormal Lab Results - Last 24 Hours (Table) 12/17/20 12/17/20 12/17/20 Range/Units 13:00 17:13 20:56 POC Glucose (mg/dL) 163 H 167 H (75-99) mg/dL Urine Protein Trace H (Negative) 12/18/20 Range/Units 11:54 POC Glucose (mg/dL) 170 H (75-99) mg/dL Urine Protein (Negative) Assessment and Plan Assessment: 1 Acute hypoxemic respiratory failure, progressive, in a patient with a prior diagnosis of COVID 19 infection on November 16. Currently on 6 L high flow nasal cannula 2 History of atrial fibrillation. Anticoagulated with warfarin. 3 History of chronic diastolic congestive heart failure. Preserved left ventricular systolic function. 4 Moderate aortic stenosis. 5 Moderate pulmonary hypertension. 6 History of essential hypertension. 7 History of hyperlipidemia. 8 History of osteoarthritis. 9 History of syncope. 10 History of carotid artery disease. 11 History of skin cancer. 12 Mild dementia. 13 Coumadin induced coagulopathy. INR 7.2 today. 14 Poor overall functional performance based on the above-mentioned multiple comorbidities Plan: The patient was seen and evaluated by Dr. Lopez Continue the current treatment plan Very slow to progress Prognosis is poor Titrate down the FiO2 as tolerated DO NOT RESUSCITATE/DO NOT INTUBATE CODE STATUS We will continue to follow I, the cosigning physician, performed a history & physical examination of the patient. Lungs sounds with bilateral scattered rhonchi. Maintaining good O2 saturations in the 90s on 6 L high flow nasal cannula. I discussed the assessment and plan of care with my nurse practitioner, Whitney Dong. I attest to the above note as dictated by her.
--- NOTE | 2020-12-18 13:29 | PN ---
PROGRESS NOTE Patient is seen for followup for acute kidney injury. He is being treated for COVID-19 pneumonia. The patient's renal function has improved. IV fluids have been discontinued. Labs are pending from today. Serum creatinine was down to 1.16 yesterday. PHYSICAL EXAMINATION: On examination today, blood pressure 98/52, heart rate 63 per minute. Patient is afebrile. Today patient is not examined. However, he did have trace edema yesterday. He did get a dose of IV Lasix as well yesterday. He is currently comfortable with stable respiratory status. FUR STYLIST exam is grossly intact. He is moving all 4 extremities. LABS: Labs show sodium 135 from yesterday 12/17/2020 with potassium 5.4, BUN 63, creatinine 1.16. ASSESSMENT: 1. Acute kidney injury associated with COVID-19 pneumonia, currently improved. Repeat labs pending from today. 2. COVID-19 pneumonia, stable. 3. Mild volume overload, status post IV Lasix yesterday. IV fluids were discontinued. 4. Underlying dementia. 5. Acute hypoxic respiratory failure secondary to pneumonia and some element of congestive heart failure, currently improved. 6. Mild hyperkalemia with concern for urine retention; however, a postvoid scan was done yesterday and no evidence of retention was noted. PLAN: Continue off IV fluids, continue to encourage increased oral intake and repeat labs in a.m. MMODL / IJN: [id number] /
[2020-12-18 17:44] LABS: Glucose,Whole Blood 120 mg/dL (75-99)
[2020-12-18] MEDS ORDERED: WARFARIN 2.5 MG TAB PO ONE (18:00)
[2020-12-18] MEDS: FAMOTIDINE 20 MG TAB PO SCH (20:27)
[2020-12-18] MEDS: MELATONIN 1 MG TAB PO SCH (20:27)
[2020-12-18] MEDS: ATORVASTATIN 40 MG TAB PO SCH (20:27)
[2020-12-18] MEDS: lisinopriL 20 MG TAB PO SCH (20:27)
[2020-12-18] MEDS: MIRTAZAPINE 15 MG TAB PO SCH (20:27)
[2020-12-18 20:39] LABS: Glucose,Whole Blood 162 mg/dL (75-99)
[2020-12-18] MEDS: INSULIN DETEMIR (LEVEMIR) 100 UNIT/ML SYR SQ SCH (21:27)
[2020-12-19 06:22] LABS: Glucose,Whole Blood 105 mg/dL (75-99)
[2020-12-19] MEDS: INSULIN ASPART (NovoLOG) 100 UNIT/ML VIAL SQ SCH ×7 (06:24→20:55)
[2020-12-19] MEDS: methylPREDNISolone SOD SUCCI 125 MG/2 ML VIAL IV SCH ×2 (06:35→13:07)
[2020-12-19] MEDS: ALBUTEROL HFA INHALER INHALATION SCH ×4 (08:04→20:08)
[2020-12-19] MEDS: COLCHICINE 0.6 MG EACH PO SCH ×2 (10:15→20:07)
[2020-12-19] MEDS: LINAGLIPTIN 5 MG TABLET PO SCH (10:15)
[2020-12-19] MEDS: ASCORBIC ACID 500 MG TAB PO SCH (10:15)
[2020-12-19] MEDS: CYANOCOBALAMIN 500 MCG TAB PO SCH (10:16)
[2020-12-19] MEDS: ZINC SULFATE 220 MG CAP PO SCH (10:16)
[2020-12-19] MEDS: TAMSULOSIN 0.4 MG CAP.ER.24H PO SCH (10:16)
[2020-12-19] MEDS: CHOLECALCIFEROL 25 MCG (1000 IU) TABLET PO SCH (10:16)
[2020-12-19] MEDS: NON FORMULARY DRUG (Omega-3 Acid Ethyl Esters [Lovaza] 1 GM Capsule) PO SCH ×2 (10:16→18:06)
--- NOTE | 2020-12-19 11:40 | P.PN ---
Subjective Progress Note Date: 12/19/20 89-year-old male with a history of multiple medical problems, including heart fire, and atrial fibrillation, and hyperlipidemia, and hypertension, who presents to the emergency department on 12/08/2020, at 1259, complaining of shortness of breath. He apparently tested positive for coronavirus, on November 16. Since that time, he's had progressive difficulty breathing. Apparently according to [facility] staff, his oxygen requirements went up, and his saturations went down. For that reason, he was directed to the emergency department. He was seen there and admitted with a diagnosis of COVID 19 pneumonia. Currently, the patient's on O2 at 6 L. He has a history of atrial fibrillation, diabetes mellitus, hyperlipidemia, hypertension, congestive heart failure, osteoarthritis, syncope, carotid artery disease, and skin cancer. Currently, his white count is 7.2, hemoglobin 11.6, hematocrit 35.5, and platelet count 180,000. His PT was 34 with an INR of 3.5 and his d-dimer was greater than 34. Sodium was 139, potassium 5.1, chloride 110, CO2 21, anion gap 8, and a BUN was 59 and the creatinine was 1.74. The patient's C-reactive protein was 258, N-terminal proBNP was 3550, and his troponin was 0.067. Progress note dated 12/10/2020. 89-year-old male with history of multiple medical problems including CHF, atrial fibrillation, and hyperlipidemia, and hypertension, who presented to the emergency department on December 08. He came in complaining of shortness of breath. He did test positive for COVID 19 on November 16. Apparently he's had progressive worsening of [facility], and his oxygen requirements went up, and his saturations went down. For that reason he was brought to the ER when he was admitted to the hospital. He is currently doing about the same today. He is on between 5-6 L by nasal cannula. He is not receiving any IV fluids. He is not a particularly good historian. It's hard to gauge how he is feeling today but he does look relatively stable. Currently, he is on 6 L nasal cannula and saturations are between 90 and 95%. Labs from today include a PT of 44.7, INR 4.6, and a glucose of 295. Chest x-ray from December 08 was reviewed. Medications are reviewed. The patient is seen today 12/11/2020 in follow-up on the selective care unit. He is currently awake and alert in no acute distress. He is resting comfortably in bed. He is dyspneic with minimal exertion. He is still requiring 10 L high flow nasal cannula to maintain O2 saturation in the low 90s. He's been afebrile. Chest x-ray reveals scattered bilateral airspace infiltrates without any significant change compared to previous. Blood culture reveals no growth to date. White count 11.5. Hemoglobin 12.2. INR 3.7. Sodium 138. Potassium 5.1. Creatinine 1.60. He remains on Decadron, vitamin supplements, warfarin. The patient is seen today 12/12/2020 in follow-up on the selective care unit. He is currently awake and alert in no acute distress. He is still requiring 10 L high flow nasal cannula. He has a loose congested cough. Not much improvem ent. He is currently afebrile. Blood cultures reveal no growth. INR 2.4. Glucose 193. He remains on IV Solu-Medrol, bronchodilators, colchicine, vitamin supplements, antibiotics. Chest x-ray continues to show persistent bilateral multifocal acute opacities secondary to CoVID 19 infection. No significant change. The patient is seen December 13 2020 in follow-up on the selective care unit. He is currently resting comfortably in bed. Awake and alert. He continues to require increasing amounts of oxygen to maintain O2 saturations in the 90s. He is on 15 L high flow now. Chest x-ray continues to show persistent bilateral multifocal opacities. He remains on IV Solu-Medrol, bronchodilators, colchicine, vitamin supplements, antibiotics. Blood cultures reveal no growth. INR 3.0. Glucose 287. The patient is seen today 12/14/2020 in follow-up on the selective care unit. He remains awake and alert. No acute distress. Maintaining O2 saturations in the 90s on 15 L high flow nasal cannula. Blood culture reveals no growth. White count 16.5. Hemoglobin 13.4. Platelets 145. INR 7.2. Sodium 138. Potassium 5.4. Creatinine 1.48. He remains on IV Solu-Medrol, bronchodilators, colchicine, vitamin supplements, antibiotics. On 12/15/2020, the patient is seen for a follow-up. The patient remains on high flow oxygen at 15 L per minute cannula. On today's evaluation, she is ess entially the same as yesterday. Her white cell count is elevated at 19 with a hemoglobin of 12.6. The patient continues to be toxic on Coumadin and her INR is up to 8.6 and the warfarin is on hold. The patient's BNP is at 71 with a creatinine of 1.25 and this is improving compared to yesterday. The liver function tests are essentially within normal limits. In terms of treatment, the patient remains on IV Solu-Medrol 60 mg every 6 hours and the patient is also on colchicine, zinc sulfate and the patient is on empiric antibiotic coverage with Zithromax. Blood cultures been negative. The chest x-ray that was done on 12/12/2020 showed diffuse bilateral pulmonary infiltrates, peripheral most on the right and he was given a dose of vitamin K 5 mg IV On today's evaluation of 12/16/2020 the patient is being seen for a follow-up. He is a case of malignancy related pneumonia. The patient is currently on 50 L about 2 by nasal cannula. His LDH level is up from yesterday is down to 1650 and his CRP level is down to 6.9. Creatinine is stable at 1.3. The patient was given a total of 5 mg of vitamin K and his INR is down to 1.5. No new complaints. Weak cough. Unable to bring up much sputum. He remains on Levemir insulin 45 units in addition to a scale and NovoLog 7 units 3 times a day with meals. The patient is on IV Solu-Medrol 60 mg every 6 hours. He is also on colchicine 0.6 mg by mouth twice a day. The chest x-ray from yesterday was noted and it showed persistent but improving infiltrates in both lung godfrey. On today's evaluation of 12/17/2020, the patient is being seen in follow-up. He has been weaned down to 11 L of oxygen by nasal cannula. Doing well. Infl ammatory markers have not been measured today. There were down trending from yesterday. He is still on IV Solu-Medrol 60 mg every 6 hours. He is also on colchicine 0.6 mg twice a day.. Chest x-rays showing some limited improvement in the left lung base in terms of the bilateral pulmonary infiltration.The patient will be restarted back on his warfarin. His labs from today are not available including the PT/INR and this is still pending for now. Otherwise, his communicating. He is in bed. His resting comfortably. No signs of any respiratory distress. We'll cut down his FiO2 further. He is on Levemir insulin for blood sugar control at 45 units and he is also on a NovoLog 7 units 3 times a day with meals in addition to a scale. The patient is seen today 12/18/2020 in follow-up on the regular medical floor. He is currently sitting up in bed. Awake and alert in no acute distress. He is down to 6 L high flow nasal cannula and maintaining O2 saturation in the 90s. Afebrile. Hemodynamically stable. Blood cultures revealed no growth. Blood glucose 170. He remains on IV Solu-Medrol, colchicine, bronchodilators, vitamin supplements. Anticoagulated with warfarin. 12/28/2020 patient seen in follow-up on medical surgical floor, he is quite fatigued, he is sitting upright in bed, he wants to his had lowered down, does not appear to be in any acute distress, his FiO2 is down to 4 L, and his pulse ox is 94%, he does get short of breath with any exertion even moving around in bed, but lung sounds are clear to auscultation, no cough, no congestion, no wheezing. No fever or chills, no abdominal pain, no nausea vomiting or diarrhea, no new labs today. Remains on colchicine 0.6 mg twice a day, he is on vitamin C, D and zinc. 10 years on Coumadin for anticoagulation, yesterday his INR was 1.4. Objective - Vital Signs Vital signs: Vital Signs Temp 98.3 F 12/19/20 04:00 Pulse 74 12/19/20 04:00 Resp 22 12/19/20 04:00 BP 158/74 12/19/20 04:00 Pulse Ox 94 L 12/19/20 04:00 Intake & Output 12/18/20 12/19/20 12/19/20 18:59 06:59 18:59 Intake Total 900 475 0 Balance 900 475 0 Weight 79.5 kg Intake: Oral 900 475 0 Other: Voiding Method Diaper Diaper Incontinent Incontinent # Voids 3 1 # Bowel Movements 1 1 1 - Exam GENERAL EXAM: Large but easily arousable, chronically ill-looking, fatigued-looking white male, currently on 4 L of oxygen pulse ox of 94%, slightly tachypneic, but denies any acute distress, lung sounds are clear HEAD: Normocephalic/atraumatic. EYES: Normal reaction of pupils, equal size. Conjunctiva pink, sclera white. NOSE: Clear with pink turbinates. THROAT: No erythema or exudates. NECK: No masses, no JVD, no thyroid enlargement, no adenopathy. CHEST: No chest wall deformity. Symmetrical expansion. LUNGS: Equal air entry with no crackles, wheeze, rhonchi or dullness. CVS: Regular rate and rhythm, normal S1 and S2, no gallops, no murmurs, no rubs ABDOMEN: Soft, nontender. No hepatosplenomegaly, normal bowel sounds, no guarding or rigidity. EXTREMITIES: No clubbing, lower extremity edema, no cyanosis, 2+ pulses and upper and lower extremities. MUSCULOSKELETAL: Muscle strength and tone normal. SPINE: No scoliosis or deformity SKIN: No rashes CENTRAL NERVOUS SYSTEM: Alert and oriented -3. No focal deficits, tone is normal in all 4 extremities. PSYCHIATRIC: Alert and oriented -3. Appropriate affect. Intact judgment and insight. - Labs CBC & Chem 7: 12/17/20 09:37 12/17/20 09:37 Labs: Abnormal Lab Results - Last 24 Hours (Table) 12/18/20 12/18/20 12/18/20 Range/Units 11:54 17:24 20:33 POC Glucose (mg/dL) 170 H 120 H 162 H (75-99) mg/dL 12/19/20 Range/Units 06:12 POC Glucose (mg/dL) 105 H (75-99) mg/dL Assessment and Plan Plan: Assessment: 1 Acute hypoxemic respiratory failure, progressive, in a patient with a prior diagnosis of COVID 19 infection on November 16. Currently on 6 L high flow nasal cannula 2 History of atrial fibrillation. Anticoagulated with warfarin. 3 History of chronic diastolic congestive heart failure. Preserved left ventricular systolic function. 4 Moderate aortic stenosis. 5 Moderate pulmonary hypertension. 6 History of essential hypertension. 7 History of hyperlipidemia. 8 History of osteoarthritis. 9 History of syncope. 10 History of carotid artery disease. 11 History of skin cancer. 12 Mild dementia. 13 Coumadin induced coagulopathy. INR 7.2 today. 14 Poor overall functional performance based on the above-mentioned multiple comorbidities Plan: Continue weaning FiO2, maintain aspiration precautions, no worsening dyspnea, patient is generally very debilitated however vital signs have been stable, no events overnight, no fever or chills, continues on Coumadin for anticoagulation, pulmonary service will sign off, and follow on an as-needed basis. Perspective patient could return back to the [facility] I performed a history & physical examination of the patient and discussed their management with my nurse practitioner, Brigida Hinojosa. I reviewed the nurse practitioner's note and agree with the documented findings and plan of care. Lung sounds are positive for clear breath sounds. The findings and the impression was discussed with the patient. I attest to the documentation by the nurse practitioner. Time with Patient: Less than 30
--- NOTE | 2020-12-19 12:15 | P.PN ---
Subjective Progress Note Date: 12/19/20 CHIEF COMPLAINT: Pauses HISTORY OF PRESENT ILLNESS: 12/17/2020 This is a 89-year-old male with a past medical history significant for atrial fibrillation/flutter, COPD, hypertension, hyperlipidemia, COPD, right carotid stenosis. It is unknown if the patient follows with a mergers and acquisitions banker. We have been asked to see the patient in consultation for pauses on telemetry. Patient is currently admitted to the hospital secondary to Covid pneumonia. Telemetry tracings reviewed revealing atrial fibrillation with pauses less than 3 seconds. Patient is currently on beta kevin therapy. Echocardiogram completed revealed ejection fraction 50-55%, mild aortic regur gitation, moderate aortic stenosis, [id number] mitral regurgitation, and moderate pulmonary hypertension 12/18/2020 Patients Bisoprolol discontinued yesterday. Patient continues to have some occ asional pauses on telemetry. Longest appears to be 3.2 seconds. Patient is on 6 L nasal cannula with oxygen saturations greater than 92%. Blood pressure 128/60. Heart rate in the 60s. He is afebrile. 12/19/2020 Telemetry tracings reviewed revealing shorter pauses with longest of 1.6 seconds. Patient's beta kevin remains on hold. Patient is on Coumadin for anticoagulation. PHYSICAL EXAM: Thorough physical exam not completed secondary to limited evaluation/examination and due to Covid19 ASSESSMENT: Covid 19 Acute hypoxic respiratory failure Chronic persistent atrial fibrillation, on Coumadin, with pauses of less than 3 seconds Supratherapeutic INR, since resolved Subtherapeutic INR Hypertension Hyperlipidemia Diabetes mellitus Dementia PLAN: Continue Coumadin per pharmacy dosing. Goal INR 2-3. Continue to hold Bisoprolol Patients pauses are within acceptable range for someone in atrial fibrillation. No further intervention needed at this time Further recommendations pending patient course Nurse practitioner note has been reviewed by physician. Signing provider agrees with the documented findings, assessment, and plan of care. Objective - Vital Signs Vital signs: Vital Signs Temp 98.3 F 12/19/20 04:00 Pulse 74 12/19/20 04:00 Resp 22 12/19/20 04:00 BP 158/74 12/19/20 04:00 Pulse Ox 94 L 12/19/20 04:00 Intake & Output 12/18/20 12/19/20 12/19/20 18:59 06:59 18:59 Intake Total 900 475 0 Balance 900 475 0 Weight 79.5 kg Intake: Oral 900 475 0 Other: Voiding Method Diaper Diaper Incontinent Incontinent # Voids 3 1 # Bowel Movements 1 1 1 - Labs CBC & Chem 7: 12/17/20 09:37 12/17/20 09:37 Labs: Abnormal Lab Results - Last 24 Hours (Table) 12/18/20 12/18/20 12/19/20 Range/Units 17:24 20:33 06:12 POC Glucose (mg/dL) 120 H 162 H 105 H (75-99) mg/dL
[2020-12-19 12:24] LABS: Glucose,Whole Blood 103 mg/dL (75-99)
--- NOTE | 2020-12-19 14:09 | P.PN ---
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, vascular dementia, patient was diagnosed with COVID-19 at the senior care and he was taken care off with decadron, ABX along with vitamin supplement, was doing fine till recently when he developed to have increased shortness of breath, along with a drop in his O2 saturation, was seen by myself on Tuesday and he was doing relatively ok, his CXR showed bilateral pneumonia, was on Levaquin for possible secondary bacterial infection and his coumadin was on hold due to coagulopathy, today Nicole the Nurse Practitioner at [facility] saw him and she advised me to send him to the ER for worsening shortness of breath and worsening cough, patient was seen and evaluated in the ER at [facility], CXR showed new bilateral pneumonia suggestive of COVID-19, patient was placed on )2 support and was started on Zithromax 250 mg IVPB daily, and we will be maintained on Decadron 6 mg orally daily and we will obtain pulmonary consult, 12/09: Patient is currently pulse oxing 94-95% on 6 L high flow nasal cannula. He has been afebrile since admission, respiratory rate 24, heart rate 84. Echocardiogram reveals EF of 50-55% with moderate concentric left ventricular hypertrophy, moderate aortic stenosis, mild to moderate mitral regurgitation, moderate pulmonary hypertension. WBC 7.2, hemoglobin 11.6. CO2 21, BUN 59 and creatinine 1.74. Blood sugars have been elevated but most recent one is 147. NovoLog scale started. Patient hasn't seen and followed by pulmonary medicine, supplements added. Patient is continued on dexamethasone, azithromycin. INR is 3.5, pharmacy to dose Coumadin /3: Patient has been seen by cardiology and pulmonary medicine. He has been afebrile, currently pulse oxing 93% on 6 L high flow nasal cannula. Respiratory rate in the 20s. Heart rate 69. INR is 4.6. Glucose running between 161 and 295. Blood culture showing no growth after 24 hours. Patient does not have much appetite. He is dyspneic with very little activity. He continues to have cough. 12/11: Decadron was transitioned to IV Solu-Medrol yesterday by pulmonary medicine. Patient continues to have dyspnea and cough. Pulse ox 90-91% on 10 L nasal cannula. He has been afebrile, heart rate 80, respiratory rate 24. CBC 1 1.5, hemoglobin 12.2. INR 3.7. BUN 67 and creatinine 1.6. Blood sugars ran between 94 and 240. Blood culture is no growth. 12/12: Patient is awake and alert. He is currently on 10 L nasal cannula with pulse ox of 91%. He has been afebrile, heart rate 77, blood pressure 139/74. 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 INR is 2.4. Pharmacy is dosing Coumadin. Blood sugars are 193-225. Levemir will be increased to 45 units at bedtime. Patient denies any fever or chills. He continues to have cough. Patient experiences shortness of breath with minimal activity. Patient is continued on IV Solu-Medrol 60 mg every 6 hours, azithromycin and supplement for Covid 19. 12/15: INR is 8.6 and patient will be ordered for vitamin K 1 dose IV piggyback. Patient states he is not eating much and does not have much appetite. He complains of feeling weak. He has no phlegm production. WBC 19, hemoglobin 12.6, platelet count 128. Electrolytes normal. BUN 71 and creatinine 1.25. Blood sugars running between 139 and 169. Consult added for nephrology for increasing BUN. Repeat chest x-ray reveals persistent but improving infiltrates seen throughout both lung godfrey. 94% on 15 L high flow nasal cannula. He has been afebrile, heart rate in 60s and 70s, blood pressure 143/67. 12/16: Patient continues to not eat very much with low appetite. Repeat INR today is at 1.5 and pharmacy is dosing Coumadin. Blood sugars are improved after changes made yesterday. He has been afebrile, heart rate 73, blood pressure 157/67, pulse ox 94% on 13 L high flow nasal cannula. WBC 22.4, hemoglobin 12.6, platelet count 137. BUN 64 and creatinine 1.32. Blood sugars running between 148 in the 181. LDH 1650. Alkaline phosphatase 171. 12/17: Patient lost IV access this morning and midline was ordered. He is currently pulse oxing 92% on 3 L nasal cannula. Patient states he has had multiple bowel movements this morning. Documented 4 bowel movements today. Stools will be sent for C. difficile toxin. Noted pauses on cardiac cath rn and cardiology consult has been added. Bisoprolol discontinued. INR 1.4 and patient received Coumadin 5 mg last evening. WBC 26.7. Sodium 135, potassium 5.4, chloride 108, CO2 20, BUN 63 and creatinine 1.16. Blood sugars are running between 150 and 167. LDH is greater than 2150. C-reactive protein is less than 5. Urinalysis negative for infection. Patient noted to have increased edema and Lasix 40 mg 1 ordered. Patient continues to have decreased appetite. 12/18: Multiple attempts have been done to draw his blood but have been unsuccessful. Patient has not been eating because he does not like hospital food. His daughter brought in food for lunch which he very much enjoyed. Blood sugars are running between 97 and 170. He has been afebrile, heart rate 63, blood pressure 128/60, pulse ox 93% on 6 L nasal cannula. Patient's respiratory status appears to be stable. He does have shortness of breath with exertion w hich is minimal activity. Patient remains on supplements, colchicine. Coumadin is being dosed by pharmacy. Renuka updated for possible discharge tomorrow. Objective - Vital Signs Vital signs: Vital Signs Temp 97.2 F L 12/17/20 19:50 Pulse 63 12/18/20 04:00 Resp 19 12/18/20 04:00 BP 128/60 12/18/20 05:30 Pulse Ox 93 L 12/18/20 04:00 Intake & Output 12/17/20 12/18/20 12/18/20 18:59 06:59 18:59 Intake Total 1548 25 180 Output Total 200 Balance 1348 25 180 Weight 77.5 kg Intake: Oral 1548 25 180 Output: Urine 200 Other: Voiding Method Diaper Diaper # Voids 1 1 # Bowel Movements 1 - Exam Review of Systems Constitutional: Reports fatigue, Reports night sweats, Reports generalized weakness Eyes: bilateral blurred vision, bilateral decreased vision Ears: bilateral: decreased hearing Ears, nose, mouth and throat: Denies dysphagia, Denies neck lump, Denies sore throat Cardiovascular: Reports decreased exercise tolerance, Reports dyspnea on minimal exertion, reports edema, Reports irregular heart beat, Reports shortness of breath, Denies chest pain, Denies orthopnea, Denies rapid heart beat, Denies syncope Respiratory: Reports congestion, Reports cough, Reports cough with sputum, Reports dyspnea, Reports home oxygen, Reports respiratory infections, Reports wheezing, Denies sleep apnea, Denies snoring Gastrointestinal: Reports nausea, Denies abdominal pain, Denies belching, Denies BRBPR, Denies change in bowel habits, Denies diarrhea, reports loss of appetite, Denies melena, Denies vomiting Genitourinary: Reports nocturia, Denies dysuria Musculoskeletal: Reports gait dysfunction, Reports morning stiffness Musculoskeletal: absent: ankle pain, ankle stiffness, elbow pain, elbow stiffness, elbow swelling, foot pain, foot stiffness, foot swelling, hand pain, hand stiffness, hand swelling, hip pain, hip stiffness, hip swelling, knee pain, knee stiffness, knee swelling, shoulder pain, shoulder stiffness, shoulder swelling, wrist pain, wrist stiffness, wrist swelling Integumentary: Denies pruritus, Denies rash Neurological: Reports confusion, Reports gait dysfunction, Reports memory loss, Reports weakness, Reports visual changes Psychiatric: Denies anxiety, Denies depression Endocrine: Denies fatigue, Denies weight change Physical examination: General: 89-year-old male. He is sitting up in bed with minimal res piratory distress at rest. HEENT: head is atraumatic normocephalic pupils were equal round reactive to light and accommodations extra ocular muscle movements were intact. mucous membranes of the mouth are moist. Neck: supple no JVP, decreased carotid upstrokes bilaterally. Chest: decrease breath sounds at the bases with few ronchi, minimal intercostal retractions. Heart: first heart sound is depressed, second heart sound is normal irregularly irregular there is VALARIE 2/6 located in the left sternal border. Abdomen: soft non tender, non distended positive bowel sounds. Extremities: there is 1+ bilateral edema no calf tenderness , DP +1 bilaterally. Neurologic examination: patient is awake alert and oriented X 2 CN II-XII are grossly intact, muscle power 4/5 in bilateral upper extremities and 3/5 in bilateral lower extremities, deep tendon reflexes were depressed. - Labs CBC & Chem 7: 12/17/20 09:37 12/17/20 09:37 Labs: Abnormal Lab Results - Last 24 Hours (Table) 12/17/20 12/17/20 12/17/20 Range/Units 13:00 17:13 20:56 POC Glucose (mg/dL) 163 H 167 H (75-99) mg/dL Urine Protein Trace H (Negative) 12/18/20 Range/Units 11:54 POC Glucose (mg/dL) 170 H (75-99) mg/dL Urine Protein (Negative) Assessment and Plan Plan: 1. Acute hypoxic respiratory failure due to COVID-19 pneumonia. Continue IV Solu-Medrol 60 mg IV every 6 hours, Zithromax 250 mg po daily, O2 support , Ventolin HFA 2 puffs inhalation Q 4 h, colchicine 0.6 mg twice daily, pulmonary consult appreciated. 2. Acute kidney injury on CKD 3a. Consult with nephrology. Lasix dosed as needed. 3. Hypertension and hypertensive cardiovascular disease. we will continue with Lisinopril 20 mg orally at bedtime. 4. Hyperlipidemia. we will continue with Lipitor 40 mg orally daily. 5. Diabetes mellitus type 2 uncontrolled with hyperglycemia secondary to yossi roids. Continue Levemir increased to 45 units at bedtime, continue NovoLog scheduled 7 units 3 times daily with meals, continue NovoLog scale before meals and at bedtime, Tradjenta 5 mg daily. Blood sugars are improved. 6. history of CVA and TIA with left carotid disease. we will continue with Li pitor 40 mg orally daily for secondary CVA prevention. 7. Atrial fibrillation/flutter. we will continue with monitoring, hold coumadin tonight and we will reevaluate in AM. Patient did have some pauses and bisoprolol held. 8. Coagulopathy due to coumadin use and interaction with Levaquin and now Zithromax. we will continue to monitor daily, pharmacy dosing Coumadin. Status post vitamin K. Continue to monitor closely. 9. enlarged prostate. we will continue with Flomax 0.4 mg orally daily. 10. Vitamin d deficiency. we will continue with vitamin D supplement and we will check levels. 11. DVT prophylaxis. we will continue with Bilateral Knee-High Moshe Hose and we will resume coumadin in AM. 12. GI prophylaxis. we will continue with PPI. 13. Discharge plan: back to [facility] possibly later this week Impression and plan of care have been directed as dictated by the signing physician. Monie Melvin nurse practitioner acting as scribe for signing physician.
[2020-12-19 14:25] LABS: INR 2.8 (<1.2); Prothrombin Time 27.3 sec (9.0-12.0)
[2020-12-19 14:32] LABS: Potassium 5.1 mmol/L (3.5-5.1)
[2020-12-19 14:33] LABS: Calcium 7.6 mg/dL (8.4-10.2)
--- NOTE | 2020-12-19 15:52 | P.PN ---
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, vascular dementia, patient was diagnosed with COVID-19 at the alf and he was taken care off with decadron, ABX along with vitamin supplement, was doing fine till recently when he developed to have increased shortness of breath, along with a drop in his O2 saturation, was seen by myself on Tuesday and he was doing relatively ok, his CXR showed bilateral pneumonia, was on Levaquin for possible secondary bacterial infection and his coumadin was on hold due to coagulopathy, today Nicole the Nurse Practitioner at [facility] saw him and she advised me to send him to the ER for worsening shortness of breath and worsening cough, patient was seen and evaluated in the ER at [facility], CXR showed new bilateral pneumonia suggestive of COVID-19, patient was placed on )2 support and was started on Zithromax 250 mg IVPB daily, and we will be maintained on Decadron 6 mg orally daily and we will obtain pulmonary consult, 12/09: Patient is currently pulse oxing 94-95% on 6 L high flow nasal cannula. He has been afebrile since admission, respiratory rate 24, heart rate 84. Echocardiogram reveals EF of 50-55% with moderate concentric left ventricular hypertrophy, moderate aortic stenosis, mild to moderate mitral regurgitation, moderate pulmonary hypertension. WBC 7.2, hemoglobin 11.6. CO2 21, BUN 59 and creatinine 1.74. Blood sugars have been elevated but most recent one is 147. NovoLog scale started. Patient hasn't seen and followed by pulmonary medicine, supplements added. Patient is continued on dexamethasone, azithromycin. INR is 3.5, pharmacy to dose Coumadin /3: Patient has been seen by cardiology and pulmonary medicine. He has been afebrile, currently pulse oxing 93% on 6 L high flow nasal cannula. Respiratory rate in the 20s. Heart rate 69. INR is 4.6. Glucose running between 161 and 295. Blood culture showing no growth after 24 hours. Patient does not have much appetite. He is dyspneic with very little activity. He continues to have cough. 12/11: Decadron was transitioned to IV Solu-Medrol yesterday by pulmonary medicine. Patient continues to have dyspnea and cough. Pulse ox 90-91% on 10 L nasal cannula. He has been afebrile, heart rate 80, respiratory rate 24. CBC 1 1.5, hemoglobin 12.2. INR 3.7. BUN 67 and creatinine 1.6. Blood sugars ran between 94 and 240. Blood culture is no growth. 12/12: Patient is awake and alert. He is currently on 10 L nasal cannula with pulse ox of 91%. He has been afebrile, heart rate 77, blood pressure 139/74. radiation monitor atrial fibrillation and controlled rate. INR is 2.4. Pharmacy is dosing Coumadin. Blood sugars are 193-225. Levemir will be increased to 45 units at bedtime. Patient denies any fever or chills. He continues to have cough. Patient experiences shortness of breath with minimal activity. Patient is continued on IV Solu-Medrol 60 mg every 6 hours, azithromycin and supplement for Covid 19. 12/15: INR is 8.6 and patient will be ordered for vitamin K 1 dose IV piggyback. Patient states he is not eating much and does not have much appetite. He complains of feeling weak. He has no phlegm production. WBC 19, hemoglobin 12.6, platelet count 128. Electrolytes normal. BUN 71 and creatinine 1.25. Blood sugars running between 139 and 169. Consult added for nephrology for increasing BUN. Repeat chest x-ray reveals persistent but improving infiltrates seen throughout both lung godfrey. 94% on 15 L high flow nasal cannula. He has been afebrile, heart rate in 60s and 70s, blood pressure 143/67. 12/16: Patient continues to not eat very much with low appetite. Repeat INR today is at 1.5 and pharmacy is dosing Coumadin. Blood sugars are improved after changes made yesterday. He has been afebrile, heart rate 73, blood pressure 157/67, pulse ox 94% on 13 L high flow nasal cannula. WBC 22.4, hemoglobin 12.6, platelet count 137. BUN 64 and creatinine 1.32. Blood sugars running between 148 in the 181. LDH 1650. Alkaline phosphatase 171. 12/17: Patient lost IV access this morning and midline was ordered. He is currently pulse oxing 92% on 3 L nasal cannula. Patient states he has had multiple bowel movements this morning. Documented 4 bowel movements today. Stools will be sent for C. difficile toxin. Noted pauses on cardiac cath lab technologist and cardiology consult has been added. Bisoprolol discontinued. INR 1.4 and patient received Coumadin 5 mg last evening. WBC 26.7. Sodium 135, potassium 5.4, chloride 108, CO2 20, BUN 63 and creatinine 1.16. Blood sugars are running between 150 and 167. LDH is greater than 2150. C-reactive protein is less than 5. Urinalysis negative for infection. Patient noted to have increased edema and Lasix 40 mg 1 ordered. Patient continues to have decreased appetite. 12/18: Multiple attempts have been done to draw his blood but have been unsuccessful. Patient has not been eating because he does not like hospital food. His daughter brought in food for lunch which he very much enjoyed. Blood sugars are running between 97 and 170. He has been afebrile, heart rate 63, blood pressure 128/60, pulse ox 93% on 6 L nasal cannula. Patient's respiratory status appears to be stable. He does have shortness of breath with exertion w hich is minimal activity. Patient remains on supplements, colchicine. Coumadin is being dosed by pharmacy. [facility] updated for possible discharge tomorrow. 12/19: His respiratory status is stable. He is currently pulse ox of 91% on 2 L. Pulmonary medicine has signed off this case. Patient is eating well when his daughter brings in food. He is complaining of sore throat for which nystatin or dered. Heart rate 74, blood pressure 158/74, patient has been afebrile. Staff have been unable to obtain blood work for the past 2 days. Authorization to use [facility] for blood draws has been given. Lab work also ordered for tomorrow. Anticipate he will be ready for discharge to return to [facility] tomorrow. Objective - Vital Signs Vital signs: Vital Signs Temp 98.3 F 12/19/20 04:00 Pulse 74 12/19/20 04:00 Resp 22 12/19/20 04:00 BP 158/74 12/19/20 04:00 Pulse Ox 94 L 12/19/20 04:00 Intake & Output 12/18/20 12/19/20 12/19/20 18:59 06:59 18:59 Intake Total 900 475 240 Balance 900 475 240 Weight 79.5 kg Intake: Oral 900 475 240 Other: Voiding Method Diaper Diaper Incontinent Incontinent # Voids 3 1 2 # Bowel Movements 1 1 1 - Exam Review of Systems Constitutional: Reports fatigue, Reports night sweats, Reports generalized weakness continues Eyes: bilateral blurred vision, bilateral decreased vision Ears: bilateral: decreased hearing Ears, nose, mouth and throat: Denies dysphagia, Denies neck lump, Denies sore throat Cardiovascular: Reports decreased exercise tolerance, Reports dyspnea on minimal exertion, reports edema, Reports irregular heart beat, Reports shortness of breath, Denies chest pain, Denies orthopnea, Denies rapid heart beat, Denies syncope Respiratory: Reports congestion, Reports cough, Reports cough with sputum, Reports dyspnea, Reports home oxygen, Reports respiratory infections, Reports wheezing, Denies sleep apnea, Denies snoring Gastrointestinal: Reports nausea, Denies abdominal pain, Denies belching, Denies BRBPR, Denies change in bowel habits, Denies diarrhea, reports loss of appetite, Denies melena, Denies vomiting Genitourinary: Reports nocturia, Denies dysuria Musculoskeletal: Reports gait dysfunction, Reports morning stiffness Musculoskeletal: absent: ankle pain, ankle stiffness, elbow pain, elbow stiffness, elbow swelling, foot pain, foot stiffness, foot swelling, hand pain, hand stiffness, hand swelling, hip pain, hip stiffness, hip swelling, knee pain, knee stiffness, knee swelling, shoulder pain, shoulder stiffness, shoulder swelling, wrist pain, wrist stiffness, wrist swelling Integumentary: Denies pruritus, Denies rash Neurological: Reports confusion, Reports gait dysfunction, Reports memory loss, Reports weakness, Reports visual changes Psychiatric: Denies anxiety, Denies depression Endocrine: Denies fatigue, Denies weight change Physical examination: General: 89-year-old male. He is sitting up in bed with minimal respiratory distress at rest. HEENT: head is atraumatic normocephalic pupils were equal round reactive to light and accommodations extra ocular muscle movements were intact. mucous membranes of the mouth are moist. Oral thrush. Neck: supple no JVP, decreased carotid upstrokes bilaterally. Chest: decrease breath sounds at the bases with few ronchi, minimal intercostal retractions. Heart: first heart sound is depressed, second heart sound is normal irregularly irregular there is VALARIE 2/6 located in the left sternal border. Abdomen: soft non tender, non distended positive bowel sounds. Extremities: there is 1+ bilateral edema no calf tenderness , DP +1 bilaterally. Neurologic examination: patient is awake alert and oriented X 2 CN II-XII are grossly intact, muscle power 4/5 in bilateral upper extremities and 3/5 in bilateral lower extremities, deep tendon reflexes were depressed. - Labs CBC & Chem 7: 12/17/20 09:37 12/19/20 14:03 Labs: Abnormal Lab Results - Last 24 Hours (Table) 12/18/20 12/18/20 12/19/20 Range/Units 17:24 20:33 06:12 POC Glucose (mg/dL) 120 H 162 H 105 H (75-99) mg/dL 12/19/20 Range/Units 12:23 POC Glucose (mg/dL) 103 H (75-99) mg/dL Assessment and Plan Plan: 1. Acute hypoxic respiratory failure due to COVID-19 pneumonia. Continue IV Solu-Medrol 60 mg IV every 6 hours decreased to 40 mg IV every 8 hours, Zithromax discontinued, O2 support , Ventolin HFA 2 puffs inhalation Q 4 h, colchicine 0.6 mg twice daily, pulmonary consult appreciated. 2. Acute kidney injury on CKD 3a. Consult with nephrology. Lasix dosed as needed. 3. Hypertension and hypertensive cardiovascular disease. we will continue with Lisinopril 20 mg orally at bedtime. 4. Hyperlipidemia. we will continue with Lipitor 40 mg orally daily. 5. Diabetes mellitus type 2 uncontrolled with hyperglycemia secondary to steroids. Continue Levemir increased to 45 units at bedtime, continue NovoLog s cheduled 7 units 3 times daily with meals, continue NovoLog scale before meals and at bedtime, Tradjenta 5 mg daily. Blood sugars are improved. 6. history of CVA and TIA with left carotid disease. we will continue with Lipitor 40 mg orally daily for secondary CVA prevention. 7. Atrial fibrillation/flutter. Beta kevin on hold. Heart rate is controlled. 8. Coagulopathy due to coumadin use and interaction with Levaquin and now Zithromax. we will continue to monitor daily, pharmacy dosing Coumadin. Status post vitamin K. Continue to monitor closely. 9. enlarged prostate. we will continue with Flomax 0.4 mg orally daily. 10. Vitamin d deficiency. we will continue with vitamin D supplement and we will check levels. 11. DVT prophylaxis. we will continue with Bilateral Knee-High Moshe Hose and we will resume coumadin in AM. 12. GI prophylaxis. we will continue with PPI. 13. Oral thrush. Patient started on nystatin swish and swallow. Discharge plan: back to [facility] on Tuesday Impression and plan of care have been directed as dictated by the signing physician. Monie Melvin nurse practitioner acting as scribe for signing physician.
--- NOTE | 2020-12-19 15:57 | P.DS ---
<Shiva Mike - Last Filed: 12/23/20 15:14> Patient Condition at Discharge: Good Plan - Discharge Summary New Discharge Prescriptions: New Colchicine [Colcrys] 0.6 mg PO BID each Nystatin 100,000 Unit/ml Susp [Mycostatin Oral Susp] 500,000 unit PO QID ml Zinc Sulfate [Orazinc] 220 mg PO DAILY cap Famotidine [Pepcid] 20 mg PO HS tab Mirtazapine [Remeron] 7.5 mg PO HS tab Ascorbic Acid [Vitamin C] 1,000 mg PO DAILY tab Cholecalciferol [Vitamin D3 (25 Mcg = 1000 Iu)] 100 mcg PO DAILY tablet Furosemide [Lasix] 40 mg PO DAILY tab Continue Hydrocortisone Cream [Hydrocortisone 2.5% Cream] 1 applic TOPICAL Q12H PRN PRN Reason: redness on forehead Caldesene Powder 1 applic TOPICAL BID Ondansetron [Zofran] 4 mg PO Q6H PRN PRN Reason: Nausea And Vomiting guaiFENesin [guaiFENesin Oral Solution] 200 mg PO Q4H PRN PRN Reason: Cough Magnesium Hydroxide [Milk of Magnesia Concentrate] 7,200 mg PO Q48H PRN PRN Reason: Constipation bisacodyL [Bisacodyl] 10 mg RECTAL DAILY PRN PRN Reason: Constipation Na Phos,M-B/Na Phos,Di-Ba [Fleet Adult] 133 ml RECTAL DAILY PRN PRN Reason: Constipation Albuterol Sulfate [Ventolin HFA] 2 puff INHALATION RT-QID Acetaminophen Tab [Tylenol] 650 mg PO Q4H PRN PRN Reason: Fever Ipratropium-Albuterol Nebulize [Duoneb 0.5 mg-3 mg/3 ml Soln] 3 ml INHALATION RT-QID INSULIN LISPRO (humaLOG) [humaLOG] See Protocol SQ ACHS Glucerna Shake 120 ml PO TID@0800,1200,1700 [place]-3 Acid Ethyl Esters [Lovaza] 2 gm PO BID@0800,1700 Dulaglutide [Trulicity] 0.75 mg SQ WE@0800 lisinopriL [Zestril] 20 mg PO HS@2130 Melatonin 1 mg PO HS@2100 Linagliptin [Tradjenta] 5 mg PO DAILY@0800 Ergocalciferol [Vitamin D2 (1250 Mcg = 06615 Iu)] 1,250 mcg PO TU@0800 Atorvastatin [Lipitor] 40 mg PO HS@2100 Tamsulosin [Flomax] 0.4 mg PO DAILY@0800 Cyanocobalamin [Vitamin B-12] 500 mcg PO DAILY@0800 Changed Warfarin [Coumadin] 3 mg PO 1700 #0 INSULIN LISPRO (humaLOG) [humaLOG] 7 unit SQ TID@0800,1100,1700 #0 Insulin Glargine,Hum.rec.anlog [Toujeo Solostar] 45 units SQ HS@2100 #0 Discontinued Digoxin [Lanoxin] 0.125 mg PO DAILY@0600 Levofloxacin [Levaquin] 250 mg PO DAILY@1200 Furosemide [Lasix] 40 mg PO DAILY@0800 Warfarin Sodium 4 mg PO MOWE@1700 Warfarin [Coumadin] 2 mg PO HS@1700 Bisoprolol [Zebeta] 5 mg PO HS@2100 Discharge Medication List Acetaminophen Tab [Tylenol] 650 mg PO Q4H PRN 12/08/20 [History] Albuterol Sulfate [Ventolin HFA] 2 puff INHALATION RT-QID 12/08/20 [History] Atorvastatin [Lipitor] 40 mg PO HS@2100 12/08/20 [History] Caldesene Powder 1 applic TOPICAL BID 12/08/20 [History] Cyanocobalamin [Vitamin B-12] 500 mcg PO DAILY@0800 12/08/20 [History] Dulaglutide [Trulicity] 0.75 mg SQ WE@0800 12/08/20 [History] Ergocalciferol [Vitamin D2 (1250 Mcg = 71204 Iu)] 1,250 mcg PO TU@0800 12/08/20 [History] Glucerna Shake 120 ml PO TID@0800,1200,1700 12/08/20 [History] Hydrocortisone Cream [Hydrocortisone 2.5% Cream] 1 applic TOPICAL Q12H PRN 12/08/20 [History] INSULIN LISPRO (humaLOG) [humaLOG] See Protocol SQ ACHS 12/08/20 [History] Ipratropium-Albuterol Nebulize [Duoneb 0.5 mg-3 mg/3 ml Soln] 3 ml INHALATION RT-QID 12/08/20 [History] Linagliptin [Tradjenta] 5 mg PO DAILY@0800 12/08/20 [History] Magnesium Hydroxide [Milk of Magnesia Concentrate] 7,200 mg PO Q48H PRN 12/08/20 [History] Melatonin 1 mg PO HS@2100 12/08/20 [History] Na Phos,M-B/Na Phos,Di-Ba [Fleet Adult] 133 ml RECTAL DAILY PRN 12/08/20 [History] [place]-3 Acid Ethyl Esters [Lovaza] 2 gm PO BID@0800,1700 12/08/20 [History] Ondansetron [Zofran] 4 mg PO Q6H PRN 12/08/20 [History] Tamsulosin [Flomax] 0.4 mg PO DAILY@0800 12/08/20 [History] bisacodyL [Bisacodyl] 10 mg RECTAL DAILY PRN 12/08/20 [History] guaiFENesin [guaiFENesin Oral Solution] 200 mg PO Q4H PRN 12/08/20 [History] lisinopriL [Zestril] 20 mg PO HS@2130 12/08/20 [History] Ascorbic Acid [Vitamin C] 1,000 mg PO DAILY tab 12/19/20 [Rx] Cholecalciferol [Vitamin D3 (25 Mcg = 1000 Iu)] 100 mcg PO DAILY tablet 12/19/20 [Rx] Colchicine [Colcrys] 0.6 mg PO BID each 12/19/20 [Rx] Famotidine [Pepcid] 20 mg PO HS tab 12/19/20 [Rx] Furosemide [Lasix] 40 mg PO DAILY tab 12/19/20 [Rx] INSULIN LISPRO (humaLOG) [humaLOG] 7 unit SQ TID@0800,1100,1700 #0 12/19/20 [Rx] Insulin Glargine,Hum.rec.anlog [Toujeo Solostar] 45 units SQ HS@2100 #0 12/19/20 [Rx] Mirtazapine [Remeron] 7.5 mg PO HS tab 12/19/20 [Rx] Nystatin 100,000 Unit/ml Susp [Mycostatin Oral Susp] 500,000 unit PO QID ml 12/19/20 [Rx] Warfarin [Coumadin] 3 mg PO 1700 #0 12/19/20 [Rx] Zinc Sulfate [Orazinc] 220 mg PO DAILY cap 12/19/20 [Rx] Follow up Appointment(s)/Referral(s): Shiva Mike MD [Primary Care Provider] - 1 Week (at [facility]) Discharge Disposition: TRANSFER TO SNF/ECF <Monie Melvin A - Last Filed: 12/23/20 16:44> Providers Date of admission: 12/08/20 15:29 Expected date of discharge: 12/23/20 Attending physician: Shiva Mike Consults: 12/08/20 15:05 Consult Physician Stat Consulting Provider: Chris Beach Consult Reason/Comments: COVID pneumonia Do you want consulting provider notified?: Yes 12/08/20 17:58 Consult Physician Routine Consulting Provider: Rosas [facility] Consult Reason/Comments: elevated troponin/COVID-19 Do you want consulting provider notified?: Yes 12/15/20 15:41 Consult Physician Routine Consulting Provider: Jay Valenzuela Consult Reason/Comments: ISABELLE, worsening BUN Do you want consulting provider notified?: Yes 12/17/20 10:51 Consult Physician Routine Consulting Provider: [facility] Consult Reason/Comments: pauses Do you want consulting provider notified?: Yes Primary care physician: Shiva Mike 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, vascular dementia, patient was diagnosed with COVID-19 at the [facility] and he was taken care off with decadron, ABX along with vitamin supplement, was doing fine till recently when he developed to have increased shortness of breath, along with a drop in his O2 saturation, was seen by myself on Tuesday and he was doing relatively ok, his CXR showed bilateral pneumonia, was on Levaquin for possible secondary bacterial infection and his coumadin was on hold due to coagulopathy, today Nicole the Nurse Practitioner at [facility] saw him and she advised me to send him to the ER for worsening shortness of breath and worsening cough, patient was seen and evaluated in the ER at [facility], CXR showed new bilateral pneumonia suggestive of COVID-19, patient was placed on )2 support and was started on Zithromax 250 mg IVPB daily, and we will be maintained on Decadron 6 mg orally daily and we will obtain pulmonary consult, 12/09: Patient is currently pulse oxing 94-95% on 6 L high flow nasal cannula. He has been afebrile since admission, respiratory rate 24, heart rate 84. Echocardiogram reveals EF of 50-55% with moderate concentric left ventricular hy pertrophy, moderate aortic stenosis, mild to moderate mitral regurgitation, moderate pulmonary hypertension. WBC 7.2, hemoglobin 11.6. CO2 21, BUN 59 and creatinine 1.74. Blood sugars have been elevated but most recent one is 147. NovoLog scale started. Patient hasn't seen and followed by pulmonary medicine, supplements added. Patient is continued on dexamethasone, azithromycin. INR is 3.5, pharmacy to dose Coumadin 12/10: Patient has been seen by cardiology and pulmonary medicine. He has been afebrile, currently pulse oxing 93% on 6 L high flow nasal cannula. Respiratory rate in the 20s. Heart rate 69. INR is 4.6. Glucose running between 161 and 295. Blood culture showing no growth after 24 hours. Patient does not have much appetite. He is dyspneic with very little activity. He continues to have cough. 12/11: Decadron was transitioned to IV Solu-Medrol yesterday by pulmonary medicine. Patient continues to have dyspnea and cough. Pulse ox 90-91% on 10 L nasal cannula. He has been afebrile, heart rate 80, respiratory rate 24. CBC 11.5, hemoglobin 12.2. INR 3.7. BUN 67 and creatinine 1.6. Blood sugars ran between 94 and 240. Blood culture is no growth. 12/12: Patient is awake and alert. He is currently on 10 L nasal cannula with pulse ox of 91%. He has been afebrile, heart rate 77, blood pressure 139/74. 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 INR is 2.4. Pharmacy is dosing Coumadin. Blood sugars are 193-225. Levemir will be increased to 45 units at bedtime. Patient denies any fever or chills. He continues to have cough. Patient experiences shortness of breath with minimal activity. Patient is continued on IV Solu-Medrol 60 mg every 6 hours, azithromycin and supplement for Covid 19. 12/15: INR is 8.6 and patient will be ordered for vitamin K 1 dose IV piggyback. Patient states he is not eating much and does not have much appetite. He complains of feeling weak. He has no phlegm production. WBC 19, hemoglobin 12.6, platelet count 128. Electrolytes normal. BUN 71 and creatinine 1.25. Blood sugars running between 139 and 169. Consult added for nephrology for increasing BUN. Repeat chest x-ray reveals persistent but improving infiltrates seen throughout both lung godfrey. 94% on 15 L high flow nasal cannula. He has been afebrile, heart rate in 60s and 70s, blood pressure 143/67. 12/16: Patient continues to not eat very much with low appetite. Repeat INR today is at 1.5 and pharmacy is dosing Coumadin. Blood sugars are improved after changes made yesterday. He has been afebrile, heart rate 73, blood pressure 157/67, pulse ox 94% on 13 L high flow nasal cannula. WBC 22.4, hemoglobin 12.6, platelet count 137. BUN 64 and creatinine 1.32. Blood sugars running between 148 in the 181. LDH 1650. Alkaline phosphatase 171. 12/17: Patient lost IV access this morning and midline was ordered. He is currently pulse oxing 92% on 3 L nasal cannula. Patient states he has had multiple bowel movements this morning. Documented 4 bowel movements today. Stools will be sent for C. difficile toxin. Noted pauses on bus monitor and cardiology consult has been added. Bisoprolol discontinued. INR 1.4 and patient received Coumadin 5 mg last evening. WBC 26.7. Sodium 135, potassium 5.4, chloride 108, CO2 20, BUN 63 and creatinine 1.16. Blood sugars are running between 150 and 167. LDH is greater than 2150. C-reactive protein is less than 5. Urinalysis negative for infection. Patient noted to have increased edema and Lasix 40 mg 1 ordered. Patient continues to have decreased appetite. 12/18: Multiple attempts have been done to draw his blood but have been unsuccessful. Patient has not been eating because he does not like hospital food. His daughter brought in food for lunch which he very much enjoyed. Blood sugars are running between 97 and 170. He has been afebrile, heart rate 63, blood pressure 128/60, pulse ox 93% on 6 L nasal cannula. Patient's respiratory status appears to be stable. He does have shortness of breath with exertion which is minimal activity. Patient remains on supplements, colchicine. Coumadin is being dosed by pharmacy. [facility] updated for possible discharge tomorrow. 12/19: His respiratory status is stable. He is currently pulse ox of 91% on 2 L. Pulmonary medicine has signed off this case. Patient is eating well when his daughter brings in food. He is complaining of sore throat for which nystatin ordered. Heart rate 74, blood pressure 158/74, patient has been afebrile. Staff have been unable to obtain blood work for the past 2 days. Authorization to use midline for blood draws has been given. Lab work also ordered for tomorrow. Anticipate he will be ready for discharge to return to [facility] tomorrow. 12/20: Patient appears to be weaker today, his oxygen requirement is down to 4 L nasal cannula, unfortunately CBC went up to 30,000, discontinue Solu-Medrol, monitor the patient for another one or 2 days, we will cancel the discharge for today hopefully we'll transfer him back to [facility] on Tuesday. 12/21: Patient feels about the same his oxygen requirement is lower, he continues to be generally weak, his soreness in his mouth is better, his appetite is not as good, he has no chest pain, less shortness of breath, occasional cough, he has no abdominal pain, nausea, vomiting, patient was taken off his Solu-Medrol, we'll monitor him very closely hopefully he will be able to be discharged to [facility] tomorrow morning. 12/22: Lab work has been reviewed and stable. Solu-Medrol was completely discontinued over the weekend and prednisone will also be discontinued for the [facility]. Patient was placed on NRB and 15L high-flow n/c during the night for low pulse-ox. He has been weaned down to 12 liters and we will decrease to 5L. Low pulse-ox appears to be more of a malfunction of the device as he is oxygenating well at time of eval with no respiratory distress. He is afebrile, HR 114, BP 136/61. Patient is eating well for lunch. No signs of aspiration. Pulmonary medicine has signed off. We will plan to monitor overnight and possibly discharge back to [facility] tomorrow. 2/16: INR 2.0. WBC 22.5, HGB 11.8, PLT 56. Sodium 133, potassium 5.0, CL 103, CO2 26, BUN 58, Creatinine 1.44. BS 182. AST 118, ALT 137, AP 156. Patient has been afebrile, HR 96, BP 111/58, PO 100% on 4L n/c. Patient will be discharged back to [facility] today in stable condition once arrangements are completed. Discharge diagnoses: 1. Acute hypoxic respiratory failure due to COVID-19 pneumonia. 2. Acute kidney injury on CKD 3a. 3. Hypertension and hypertensive cardiovascular disease. 4. Hyperlipidemia. 5. Diabetes mellitus type 2 uncontrolled with hyperglycemia secondary to steroids. 6. history of CVA and TIA with left carotid disease. 7. Atrial fibrillation/flutter. 8. Coagulopathy due to coumadin use and interaction with Levaquin and now Zithromax. 9. enlarged prostate. 10. Vitamin d deficiency. 11. Oral thrush. Discharge plan: back to [facility] Impression and plan of care have been directed as dictated by the signing physician. Monie Melvin nurse practitioner acting as scribe for signing physician. Plan - Discharge Summary Discharge Rx Participant: Yes
--- NOTE | 2020-12-19 16:13 | PN ---
PROGRESS NOTE Patient is seen for followup for acute kidney injury associated with underlying COVID infection. The patient is currently awake, comfortable. He is not in any acute distress. He was maintained on IV fluids initially. IV fluids are now discontinued. PHYSICAL EXAMINATION: Blood pressure was 158/74 today, heart rate 74 per minute. He is afebrile. Examination of lower extremities shows edema 1+ bilaterally. Abdomen is soft, nontender. [employer] exam grossly intact. LABS: Labs show sodium 135, potassium 5.1, BUN 59, serum creatinine 1.12. ASSESSMENT: 1. Acute kidney injury prerenal associated with underlying COVID infection currently improved. A component of acute tubular necrosis was present as well. 2. COVID-19 pneumonia, stable. 3. Mild hyperkalemia with no evidence of urine retention. Patient is maintained on TOO inhibitors. I will decrease the lisinopril if the serum potassium is higher. 4. Acute hypoxic respiratory failure secondary to pneumonia. COVID-19 pneumonia, now improved. 5. Mild volume overload. 6. Hypertension, partly volume sensitive. PLAN: Add loop diuretics and if potassium is higher over the next few days, we can decrease the lisinopril to 10 mg from 20 mg. MMODL / IJN: [id number] /
[2020-12-19 17:06] LABS: Glucose,Whole Blood 215 mg/dL (75-99)
[2020-12-19] MEDS ORDERED: WARFARIN 1 MG TAB PO ONE (18:00)
[2020-12-19] MEDS: methylPREDNISolone SOD SUCCI 40 MG/ML 1 ML VIAL IV SCH ×2 (18:00→23:32)
[2020-12-19] MEDS: NYSTATIN 100,000 UNIT/ML SUSP 500,000 UNIT/5 ML CUP PO SCH ×2 (18:01→20:55)
[2020-12-19] MEDS: MIRTAZAPINE 15 MG TAB PO SCH (20:05)
[2020-12-19] MEDS: FAMOTIDINE 20 MG TAB PO SCH (20:07)
[2020-12-19] MEDS: ATORVASTATIN 40 MG TAB PO SCH (20:07)
[2020-12-19] MEDS: MELATONIN 1 MG TAB PO SCH (20:07)
[2020-12-19] MEDS: lisinopriL 20 MG TAB PO SCH (20:08)
[2020-12-19 20:53] LABS: Glucose,Whole Blood 96 mg/dL (75-99)
[2020-12-19] MEDS: INSULIN DETEMIR (LEVEMIR) 100 UNIT/ML SYR SQ SCH (20:55)
[2020-12-20 06:14] LABS: Glucose,Whole Blood 117 mg/dL (75-99)
[2020-12-20] MEDS: INSULIN ASPART (NovoLOG) 100 UNIT/ML VIAL SQ SCH ×7 (06:23→20:59)
[2020-12-20] MEDS: ALBUTEROL HFA INHALER INHALATION SCH ×4 (08:02→21:12)
[2020-12-20] MEDS: methylPREDNISolone SOD SUCCI 40 MG/ML 1 ML VIAL IV SCH (09:36)
[2020-12-20] MEDS: NON FORMULARY DRUG (Omega-3 Acid Ethyl Esters [Lovaza] 1 GM Capsule) PO SCH ×2 (09:36→15:41)
[2020-12-20] MEDS: CHOLECALCIFEROL 25 MCG (1000 IU) TABLET PO SCH (09:36)
[2020-12-20] MEDS: ASCORBIC ACID 500 MG TAB PO SCH (09:37)
[2020-12-20] MEDS: LINAGLIPTIN 5 MG TABLET PO SCH (09:37)
[2020-12-20] MEDS: COLCHICINE 0.6 MG EACH PO SCH ×2 (09:37→20:09)
[2020-12-20] MEDS: CYANOCOBALAMIN 500 MCG TAB PO SCH (09:37)
[2020-12-20] MEDS: ZINC SULFATE 220 MG CAP PO SCH (09:37)
[2020-12-20] MEDS: TAMSULOSIN 0.4 MG CAP.ER.24H PO SCH (09:37)
[2020-12-20] MEDS: FUROSEMIDE 40 MG TAB PO SCH (09:37)
[2020-12-20] MEDS: NYSTATIN 100,000 UNIT/ML SUSP 500,000 UNIT/5 ML CUP PO SCH ×4 (09:38→20:09)
[2020-12-20 11:01] LABS: HCT 39.7 % (39.0-53.0); HGB 12.7 gm/dL (13.0-17.5); MCHC 32.1 g/dL (31.0-37.0); MCV 99.8 fL (80.0-100.0); Macrocytosis Slight; Mean Platelet Volume 10.8; RBC 3.98 m/uL (4.30-5.90); RDW 14.6 % (11.5-15.5); WBC 30.2 k/uL (3.8-10.6)
[2020-12-20 11:03] LABS: Platelet Count 75 k/uL (150-450)
[2020-12-20 11:09] LABS: Albumin 2.6 g/dL (3.5-5.0); Calcium 7.6 mg/dL (8.4-10.2); Potassium 5.5 mmol/L (3.5-5.1); Total Bilirubin 0.9 mg/dL (0.2-1.3); Total Protein 5.7 g/dL (6.3-8.2)
[2020-12-20 11:14] LABS: INR 3.2 (<1.2); Prothrombin Time 30.8 sec (9.0-12.0)
[2020-12-20 11:46] LABS: Glucose,Whole Blood 201 mg/dL (75-99)
--- NOTE | 2020-12-20 12:04 | P.PN ---
Subjective Patient is seen in follow-up for acute kidney injury. Renal function fairly stable. Potassium level slightly on the higher side. Has been voiding. Incontinent. Hemodynamically stable. Vital signs are stable. General: The patient appeared well nourished and normally developed. HEENT: Head exam is unremarkable. Neck is without jugular venous distension. LUNGS: Breath sounds decreased. HEART: Rate and Rhythm are regular. ABDOMEN: Soft, nontender. EXTREMITITES: No edema. Objective - Vital Signs Vital signs: Vital Signs Temp 97.9 F 12/20/20 04:00 Pulse 86 12/20/20 04:00 Resp 20 12/20/20 04:00 BP 142/63 12/20/20 04:00 Pulse Ox 96 12/20/20 04:00 Intake & Output 12/19/20 12/20/20 12/20/20 18:59 06:59 18:59 Intake Total 240 550 0 Balance 240 550 0 Weight 76 kg Intake: Oral 240 550 0 Other: Voiding Method Diaper Diaper Incontinent Incontinent # Voids 2 2 # Bowel Movements 1 1 - Labs CBC & Chem 7: 12/20/20 10:56 12/20/20 10:56 Labs: Abnormal Lab Results - Last 24 Hours (Table) 12/19/20 12/19/20 12/19/20 Range/Units 12:23 14:03 14:03 WBC (3.8-10.6) k/uL RBC (4.30-5.90) m/uL Hgb (13.0-17.5) gm/dL Plt Count (150-450) k/uL PT 27.3 H (9.0-12.0) sec INR 2.8 H (<1.2) Sodium 135 L (137-145) mmol/L Potassium (3.5-5.1) mmol/L BUN 59 H (9-20) mg/dL Glucose 131 H (74-99) mg/dL POC Glucose (mg/dL) 103 H (75-99) mg/dL Calcium 7.6 L (8.4-10.2) mg/dL ALT (4-49) U/L Alkaline Phosphatase (38-126) U/L Total Protein (6.3-8.2) g/dL Albumin (3.5-5.0) g/dL 12/19/20 12/20/2021 Range/Units 17:04 06:12 10:56 WBC (3.8-10.6) k/uL RBC (4.30-5.90) m/uL Hgb (13.0-17.5) gm/dL Plt Count (150-450) k/uL PT 30.8 H (9.0-12.0) sec INR 3.2 H (<1.2) Sodium (137-145) mmol/L Potassium (3.5-5.1) mmol/L BUN (9-20) mg/dL Glucose (74-99) mg/dL POC Glucose (mg/dL) 215 H 117 H (75-99) mg/dL Calcium (8.4-10.2) mg/dL ALT (4-49) U/L Alkaline Phosphatase (38-126) U/L Total Protein (6.3-8.2) g/dL Albumin (3.5-5.0) g/dL 12/20/20 12/20/20 12/20/20 Range/Units 10:56 10:56 11:44 WBC 30.2 H (3.8-10.6) k/uL RBC 3.98 L (4.30-5.90) m/uL Hgb 12.7 L (13.0-17.5) gm/dL Plt Count 75 L (150-450) k/uL PT (9.0-12.0) sec INR (<1.2) Sodium 133 L (137-145) mmol/L Potassium 5.5 H (3.5-5.1) mmol/L BUN 63 H (9-20) mg/dL Glucose 219 H (74-99) mg/dL POC Glucose (mg/dL) 201 H (75-99) mg/dL Calcium 7.6 L (8.4-10.2) mg/dL ALT 60 H (4-49) U/L Alkaline Phosphatase 162 H (38-126) U/L Total Protein 5.7 L (6.3-8.2) g/dL Albumin 2.6 L (3.5-5.0) g/dL Assessment and Plan Plan: Assessment: 1. Acute kidney injury secondary to ATN secondary to Covid 19 infection. Renal function stable. UA is fairly benign. 2. Covid 19 pneumonia. Currently on 4 L nasal cannula. 3. Hyperkalemia secondary to TOO inhibitor. 4. Acute proximal respite failure secondary to pneumonia. 5. Mild volume overload maintained on Lasix. 6. Benign hypertension. Stable. 7. Diabetes mellitus. Plan: Stop lisinopril. Add amlodipine 5 mg once daily. Avoid nephrotoxins. Wean FiO2. Continue to monitor renal function and urine output. Repeat potassium level this evening.
--- NOTE | 2020-12-20 12:40 | P.PN ---
Subjective Progress Note Date: 12/20/20 This is an 89-year-old gentleman with a past medical history significant for atrial fibrillation/flutter, COPD, hypertension, hyperlipidemia, right carotid stenosis. He presented to the hospital with COVID pneumonia. Breasts to see the patient in consultation due to pauses while in atrial fibrillation. He did have an echocardiogram which showed ejection fraction 50-55%, mild AR, moderate aortic stenosis, mild to moderate MR and moderate pulmonary hypertension. His beta kevin was discontinued and his heart rate has improved. Maintaining mostly in the 80s. He continues to be anticoagulated on Coumadin. Objective - Vital Signs Vital signs: Vital Signs Temp 97.9 F 12/20/20 04:00 Pulse 86 12/20/20 04:00 Resp 20 12/20/20 04:00 BP 142/63 12/20/20 04:00 Pulse Ox 96 12/20/20 04:00 Intake & Output 12/19/20 12/20/20 12/20/20 18:59 06:59 18:59 Intake Total 240 550 0 Balance 240 550 0 Weight 76 kg Intake: Oral 240 550 0 Other: Voiding Method Diaper Diaper Incontinent Incontinent # Voids 2 2 # Bowel Movements 1 1 - Exam Thorough physical exam not completed secondary to limited evaluation/examination and due to Covid19 - Labs CBC & Chem 7: 12/20/20 10:56 12/20/20 10:56 Labs: Abnormal Lab Results - Last 24 Hours (Table) 12/19/20 12/19/20 12/19/20 Range/Units 14:03 14:03 17:04 WBC (3.8-10.6) k/uL RBC (4.30-5.90) m/uL Hgb (13.0-17.5) gm/dL Plt Count (150-450) k/uL PT 27.3 H (9.0-12.0) sec INR 2.8 H (<1.2) Sodium 135 L (137-145) mmol/L Potassium (3.5-5.1) mmol/L BUN 59 H (9-20) mg/dL Glucose 131 H (74-99) mg/dL POC Glucose (mg/dL) 215 H (75-99) mg/dL Calcium 7.6 L (8.4-10.2) mg/dL ALT (4-49) U/L Alkaline Phosphatase (38-126) U/L Total Protein (6.3-8.2) g/dL Albumin (3.5-5.0) g/dL 12/20/20 12/20/20 12/20/20 Range/Units 06:12 10:56 10:56 WBC 30.2 H (3.8-10.6) k/uL RBC 3.98 L (4.30-5.90) m/uL Hgb 12.7 L (13.0-17.5) gm/dL Plt Count 75 L (150-450) k/uL PT 30.8 H (9.0-12.0) sec INR 3.2 H (<1.2) Sodium (137-145) mmol/L Potassium (3.5-5.1) mmol/L BUN (9-20) mg/dL Glucose (74-99) mg/dL POC Glucose (mg/dL) 117 H (75-99) mg/dL Calcium (8.4-10.2) mg/dL ALT (4-49) U/L Alkaline Phosphatase (38-126) U/L Total Protein (6.3-8.2) g/dL Albumin (3.5-5.0) g/dL 12/20/20 12/20/20 Range/Units 10:56 11:44 WBC (3.8-10.6) k/uL RBC (4.30-5.90) m/uL Hgb (13.0-17.5) gm/dL Plt Count (150-450) k/uL PT (9.0-12.0) sec INR (<1.2) Sodium 133 L (137-145) mmol/L Potassium 5.5 H (3.5-5.1) mmol/L BUN 63 H (9-20) mg/dL Glucose 219 H (74-99) mg/dL POC Glucose (mg/dL) 201 H (75-99) mg/dL Calcium 7.6 L (8.4-10.2) mg/dL ALT 60 H (4-49) U/L Alkaline Phosphatase 162 H (38-126) U/L Total Protein 5.7 L (6.3-8.2) g/dL Albumin 2.6 L (3.5-5.0) g/dL Assessment and Plan Assessment: #1 COVID 19 #2 acute hypoxic respiratory failure #3 chronic persistent atrial fibrillation, on Coumadin ventricular response, improved after stopping beta blockers #4 hypertension #5 hyperlipidemia #6 diabetes mellitus #7 dementia Plan: From cardiology perspective continue Coumadin dosing per pharmacy with a goal INR of 2-3. Continue to hold beta blockers. Continue to monitor the heart rate. We will continue to follow the patient provide further recommendations accordingly. The above dictated assessment and findings were discussed with signing physician. The impression and plan of care have been directed as dictated. Beverly Anders, Nurse Practitioner, acting as scribe for signing physician.
--- NOTE | 2020-12-20 14:32 | P.PN ---
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, vascular dementia, patient was diagnosed with COVID-19 at the senior living and he was taken care off with decadron, ABX along with vitamin supplement, was doing fine till recently when he developed to have increased shortness of breath, along with a drop in his O2 saturation, was seen by myself on Tuesday and he was doing relatively ok, his CXR showed bilateral pneumonia, was on Levaquin for possible secondary bacterial infection and his coumadin was on hold due to coagulopathy, today Nicole the Nurse Practitioner at [facility] saw him and she advised me to send him to the ER for worsening shortness of breath and worsening cough, patient was seen and evaluated in the ER at [facility], CXR showed new bilateral pneumonia suggestive of COVID-19, patient was placed on )2 support and was started on Zithromax 250 mg IVPB daily, and we will be maintained on Decadron 6 mg orally daily and we will obtain pulmonary consult, 12/09: Patient is currently pulse oxing 94-95% on 6 L high flow nasal cannula. He has been afebrile since admission, respiratory rate 24, heart rate 84. Echocardiogram reveals EF of 50-55% with moderate concentric left ventricular hypertrophy, moderate aortic stenosis, mild to moderate mitral regurgitation, moderate pulmonary hypertension. WBC 7.2, hemoglobin 11.6. CO2 21, BUN 59 and creatinine 1.74. Blood sugars have been elevated but most recent one is 147. NovoLog scale started. Patient hasn't seen and followed by pulmonary medicine, supplements added. Patient is continued on dexamethasone, azithromycin. INR is 3.5, pharmacy to dose Coumadin /3: Patient has been seen by cardiology and pulmonary medicine. He has been afebrile, currently pulse oxing 93% on 6 L high flow nasal cannula. Respiratory rate in the 20s. Heart rate 69. INR is 4.6. Glucose running between 161 and 295. Blood culture showing no growth after 24 hours. Patient does not have much appetite. He is dyspneic with very little activity. He continues to have cough. 12/11: Decadron was transitioned to IV Solu-Medrol yesterday by pulmonary medicine. Patient continues to have dyspnea and cough. Pulse ox 90-91% on 10 L nasal cannula. He has been afebrile, heart rate 80, respiratory rate 24. CBC 11.5, hemoglobin 12.2. INR 3.7. BUN 67 and creatinine 1.6. Blood sugars ran between 94 and 240. Blood culture is no growth. 12/12: Patient is awake and alert. He is currently on 10 L nasal cannula with pulse ox of 91%. He has been afebrile, heart rate 77, blood pressure 139/74. telemetry monitor atrial fibrillation and controlled rate. INR is 2.4. Pharmacy is dosing Coumadin. Blood sugars are 193-225. Levemir will be increased to 45 units at bedtime. Patient denies any fever or chills. He continues to have cough. Patient experiences shortness of breath with minimal activity. Patient is continued on IV Solu-Medrol 60 mg every 6 hours, azithromycin and supplement for Covid 19. 12/15: INR is 8.6 and patient will be ordered for vitamin K 1 dose IV piggyback. Patient states he is not eating much and does not have much appetite. He complains of feeling weak. He has no phlegm production. WBC 19, hemoglobin 12.6, platelet count 128. Electrolytes normal. BUN 71 and creatinine 1.25. Blood sugars running between 139 and 169. Consult added for nephrology for increasing BUN. Repeat chest x-ray reveals persistent but improving infiltrates seen throughout both lung godfrey. 94% on 15 L high flow nasal cannula. He has been afebrile, heart rate in 60s and 70s, blood pressure 143/67. 12/16: Patient continues to not eat very much with low appetite. Repeat INR today is at 1.5 and pharmacy is dosing Coumadin. Blood sugars are improved after changes made yesterday. He has been afebrile, heart rate 73, blood pressure 157/67, pulse ox 94% on 13 L high flow nasal cannula. WBC 22.4, hemoglobin 12.6, platelet count 137. BUN 64 and creatinine 1.32. Blood sugars running bet ween 148 in the 181. LDH 1650. Alkaline phosphatase 171. 12/17: Patient lost IV access this morning and midline was ordered. He is currently pulse oxing 92% on 3 L nasal cannula. Patient states he has had multiple bowel movements this morning. Documented 4 bowel movements today. Stools will be sent for C. difficile toxin. Noted pauses on monitoring specialist and cardiology consult has been added. Bisoprolol discontinued. INR 1.4 and patient received Coumadin 5 mg last evening. WBC 26.7. Sodium 135, potassium 5.4, chloride 108, CO2 20, BUN 63 and creatinine 1.16. Blood sugars are running between 150 and 167. LDH is greater than 2150. C-reactive protein is less than 5. Urinalysis negative for infection. Patient noted to have increased edema and Lasix 40 mg 1 ordered. Patient continues to have decreased appetite. 12/18: Multiple attempts have been done to draw his blood but have been unsuccessful. Patient has not been eating because he does not like hospital food. His daughter brought in food for lunch which he very much enjoyed. Blood sugars are running between 97 and 170. He has been afebrile, heart rate 63, blood pressure 128/60, pulse ox 93% on 6 L nasal cannula. Patient's respiratory status appears to be stable. He does have shortness of breath with exertion which is minimal activity. Patient remains on supplements, colchicine. Coumadin is being dosed by pharmacy. [facility] updated for possible discharge tomorrow. 12/19: His respiratory status is stable. He is currently pulse ox of 91% on 2 L. Pulmonary medicine has signed off this case. Patient is eating well when his daughter brings in food. He is complaining of sore throat for which nystatin o rdered. Heart rate 74, blood pressure 158/74, patient has been afebrile. Staff have been unable to obtain blood work for the past 2 days. Authorization to use [facility] for blood draws has been given. Lab work also ordered for tomorrow. Anticipate he will be ready for discharge to return to [facility] tomorrow. 12/20: Patient appears to be weaker today, his oxygen requirement is down to 4 L nasal cannula, unfortunately CBC went up to 30,000, discontinue Solu-Medrol, monitor the patient for another one or 2 days, we will cancel the discharge for today hopefully we'll transfer him back to [facility] on Tuesday. Objective - Vital Signs Vital signs: Vital Signs Temp 97.9 F 12/20/20 04:00 Pulse 86 12/20/20 04:00 Resp 20 12/20/20 04:00 BP 142/63 12/20/20 04:00 Pulse Ox 96 12/20/20 04:00 Intake & Output 12/19/20 12/20/20 12/20/20 18:59 06:59 18:59 Intake Total 240 550 240 Balance 240 550 240 Weight 76 kg Intake: Oral 240 550 240 Other: Voiding Method Diaper Diaper Incontinent Incontinent # Voids 2 2 2 # Bowel Movements 1 1 - Exam Exam Review of Systems Constitutional: Reports fatigue, Reports night sweats, Reports generalized weakness continues Eyes: bilateral blurred vision, bilateral decreased vision Ears: bilateral: decreased hearing Ears, nose, mouth and throat: Denies dysphagia, Denies neck lump, Denies sore throat Cardiovascular: Reports decreased exercise tolerance, Reports dyspnea on minimal exertion, reports edema, Reports irregular heart beat, Reports shortness of breath, Denies chest pain, Denies orthopnea, Denies rapid heart beat, Denies syncope Respiratory: Reports congestion, Reports cough, Reports cough with sputum, Reports dyspnea, Reports home oxygen, Reports respiratory infections, Reports wheezing, Denies sleep apnea, Denies snoring Gastrointestinal: Reports nausea, Denies abdominal pain, Denies belching, Denies BRBPR, Denies change in bowel habits, Denies diarrhea, reports loss of appetite, Denies melena, Denies vomiting Genitourinary: Reports nocturia, Denies dysuria Musculoskeletal: Reports gait dysfunction, Reports morning stiffness Musculoskeletal: absent: ankle pain, ankle stiffness, elbow pain, elbow stiffness, elbow swelling, foot pain, foot stiffness, foot swelling, hand pain, hand stiffness, hand swelling, hip pain, hip stiffness, hip swelling, knee pain, knee stiffness, knee swelling, shoulder pain, shoulder stiffness, shoulder swelling, wrist pain, wrist stiffness, wrist swelling Integumentary: Denies pruritus, Denies rash Neurological: Reports confusion, Reports gait dysfunction, Reports memory loss, Reports weakness, Reports visual changes Psychiatric: Denies anxiety, Denies depression Endocrine: Denies fatigue, Denies weight change Physical examination: General: 89-year-old male. He is sitting up in bed with minimal respiratory distress at rest. HEENT: head is atraumatic normocephalic pupils were equal round reactive to light and accommodations extra ocular muscle movements were intact. mucous membranes of the mouth are moist. Oral thrush. Neck: supple no JVP, decreased carotid upstrokes bilaterally. Chest: decrease breath sounds at the bases with few ronchi, minimal intercostal retractions. Heart: first heart sound is depressed, second heart sound is normal irregularly irregular there is VALARIE 2/6 located in the left sternal border. Abdomen: soft non tender, non distended positive bowel sounds. Extremities: there is 1+ bilateral edema no calf tenderness , DP +1 bilaterally. Neurologic examination: patient is awake alert and oriented X 2 CN II-XII are grossly intact, muscle power 4/5 in bilateral upper extremities and 3/5 in b ilateral lower extremities, deep tendon reflexes were depressed. - Labs CBC & Chem 7: 12/20/20 10:56 12/20/20 10:56 Labs: Abnormal Lab Results - Last 24 Hours (Table) 12/19/20 12/19/20 12/19/20 Range/Units 14:03 14:03 17:04 WBC (3.8-10.6) k/uL RBC (4.30-5.90) m/uL Hgb (13.0-17.5) gm/dL Plt Count (150-450) k/uL PT 27.3 H (9.0-12.0) sec INR 2.8 H (<1.2) Sodium 135 L (137-145) mmol/L Potassium (3.5-5.1) mmol/L BUN 59 H (9-20) mg/dL Glucose 131 H (74-99) mg/dL POC Glucose (mg/dL) 215 H (75-99) mg/dL Calcium 7.6 L (8.4-10.2) mg/dL ALT (4-49) U/L Alkaline Phosphatase (38-126) U/L Total Protein (6.3-8.2) g/dL Albumin (3.5-5.0) g/dL 12/20/20 12/20/20 12/20/20 Range/Units 06:12 10:56 10:56 WBC 30.2 H (3.8-10.6) k/uL RBC 3.98 L (4.30-5.90) m/uL Hgb 12.7 L (13.0-17.5) gm/dL Plt Count 75 L (150-450) k/uL PT 30.8 H (9.0-12.0) sec INR 3.2 H (<1.2) Sodium (137-145) mmol/L Potassium (3.5-5.1) mmol/L BUN (9-20) mg/dL Glucose (74-99) mg/dL POC Glucose (mg/dL) 117 H (75-99) mg/dL Calcium (8.4-10.2) mg/dL ALT (4-49) U/L Alkaline Phosphatase (38-126) U/L Total Protein (6.3-8.2) g/dL Albumin (3.5-5.0) g/dL 12/20/20 12/20/20 Range/Units 10:56 11:44 WBC (3.8-10.6) k/uL RBC (4.30-5.90) m/uL Hgb (13.0-17.5) gm/dL Plt Count (150-450) k/uL PT (9.0-12.0) sec INR (<1.2) Sodium 133 L (137-145) mmol/L Potassium 5.5 H (3.5-5.1) mmol/L BUN 63 H (9-20) mg/dL Glucose 219 H (74-99) mg/dL POC Glucose (mg/dL) 201 H (75-99) mg/dL Calcium 7.6 L (8.4-10.2) mg/dL ALT 60 H (4-49) U/L Alkaline Phosphatase 162 H (38-126) U/L Total Protein 5.7 L (6.3-8.2) g/dL Albumin 2.6 L (3.5-5.0) g/dL Assessment and Plan Assessment: Assessment and Plan Plan: 1. Acute hypoxic respiratory failure due to COVID-19 pneumonia. Continue IV Solu-Medrol 60 mg IV every 6 hours decreased to 40 mg IV every 8 hours, Zithromax discontinued, O2 support , Ventolin HFA 2 puffs inhalation Q 4 h, colchicine 0.6 mg twice daily, pulmonary consult appreciated. 2. Acute kidney injury on CKD 3a. Consult with nephrology. Lasix dosed as needed. 3. Hypertension and hypertensive cardiovascular disease. we will continue with Lisinopril 20 mg orally at bedtime. 4. Hyperlipidemia. we will continue with Lipitor 40 mg orally daily. 5. Diabetes mellitus type 2 uncontrolled with hyperglycemia secondary to steroids. Continue Levemir increased to 45 units at bedtime, continue NovoLog scheduled 7 units 3 times daily with meals, continue NovoLog scale before meals and at bedtime, Tradjenta 5 mg daily. Blood sugars are improved. 6. history of CVA and TIA with left carotid disease. we will continue with Lipitor 40 mg orally daily for secondary CVA prevention. 7. Atrial fibrillation/flutter. Beta kevin on hold. Heart rate is co ntrolled. 8. Coagulopathy due to coumadin use and interaction with Levaquin and now Zithromax. we will continue to monitor daily, pharmacy dosing Coumadin. Status post vitamin K. Continue to monitor closely. 9. enlarged prostate. we will continue with Flomax 0.4 mg orally daily. 10. Vitamin d deficiency. we will continue with vitamin D supplement and we will check levels. 11. DVT prophylaxis. we will continue with Bilateral Knee-High Moshe Hose and we will resume coumadin in AM. 12. GI prophylaxis. we will continue with PPI. 13. Oral thrush. Patient started on nystatin swish and swallow. Discharge plan: back to [facility] on Tuesday.
[2020-12-20 16:41] LABS: Glucose,Whole Blood 210 mg/dL (75-99)
[2020-12-20] MEDS ORDERED: WARFARIN 0.5 MG TAB PO ONE (18:00)
[2020-12-20] MEDS ORDERED: SODIUM BICARB 8.4% 50 ML SYR (1 MEQ/ML) IV ONE (18:24)
[2020-12-20] MEDS ORDERED: INSULIN REGULAR 100 UNIT/ML VIAL IV ONE (18:24)
[2020-12-20] MEDS ORDERED: DEXTROSE 50% SYRINGE 50 ML IVP ONE (18:24)
[2020-12-20] MEDS: FAMOTIDINE 20 MG TAB PO SCH (20:09)
[2020-12-20] MEDS: MELATONIN 1 MG TAB PO SCH (20:09)
[2020-12-20] MEDS: ATORVASTATIN 40 MG TAB PO SCH (20:09)
[2020-12-20] MEDS: MIRTAZAPINE 15 MG TAB PO SCH (20:10)
[2020-12-20 20:39] LABS: Glucose,Whole Blood 293 mg/dL (75-99)
[2020-12-20] MEDS: INSULIN DETEMIR (LEVEMIR) 100 UNIT/ML SYR SQ SCH (20:59)
[2020-12-21 06:01] LABS: Glucose,Whole Blood 233 mg/dL (75-99)
[2020-12-21] MEDS: INSULIN ASPART (NovoLOG) 100 UNIT/ML VIAL SQ SCH ×7 (06:30→22:55)
[2020-12-21] MEDS: ALBUTEROL HFA INHALER INHALATION SCH ×5 (07:24→21:50)
[2020-12-21 08:29] LABS: Albumin 2.8 g/dL (3.5-5.0); Calcium 7.9 mg/dL (8.4-10.2); Magnesium 2.7 mg/dL (1.6-2.3); Total Bilirubin 0.9 mg/dL (0.2-1.3); Total Protein 6.1 g/dL (6.3-8.2)
[2020-12-21 08:32] LABS: Potassium 4.8 mmol/L (3.5-5.1)
[2020-12-21 08:52] LABS: INR 3.5 (<1.2); Prothrombin Time 33.7 sec (9.0-12.0)
--- NOTE | 2020-12-21 09:05 | P.PN ---
Subjective Patient is seen in follow-up for acute kidney injury. Renal function fairly stable. Potassium level was elevated last night and was medically treated. Normal this morning. Has been voiding. Incontinent. Hemodynamically stable. Vital signs are stable. General: The patient appeared well nourished and normally developed. HEENT: Head exam is unremarkable. Neck is without jugular venous distension. LUNGS: Breath sounds decreased. HEART: Rate and Rhythm are regular. ABDOMEN: Soft, nontender. EXTREMITITES: No edema. Objective - Vital Signs Vital signs: Vital Signs Temp 97.8 F 12/21/20 04:00 Pulse 97 12/21/20 04:00 Resp 20 12/21/20 04:00 BP 110/56 12/21/20 04:00 Pulse Ox 90 L 12/21/20 04:05 Intake & Output 12/20/20 12/21/20 12/21/20 18:59 06:59 18:59 Intake Total 1080 475 0 Output Total 1 Balance 1080 474 0 Weight 77 kg Intake: Oral 1080 475 0 Output: Stool 1 Other: Voiding Method Diaper Diaper Incontinent Incontinent # Voids 2 1 # Bowel Movements 2 - Labs CBC & Chem 7: 12/20/20 10:56 12/21/20 07:59 Labs: Abnormal Lab Results - Last 24 Hours (Table) 12/20/20 12/20/20 12/20/20 Range/Units 10:56 10:56 10:56 WBC 30.2 H (3.8-10.6) k/uL RBC 3.98 L (4.30-5.90) m/uL Hgb 12.7 L (13.0-17.5) gm/dL Plt Count 75 L (150-450) k/uL PT 30.8 H (9.0-12.0) sec INR 3.2 H (<1.2) Sodium 133 L (137-145) mmol/L Potassium 5.5 H (3.5-5.1) mmol/L BUN 63 H (9-20) mg/dL Glucose 219 H (74-99) mg/dL POC Glucose (mg/dL) (75-99) mg/dL Calcium 7.6 L (8.4-10.2) mg/dL Magnesium (1.6-2.3) mg/dL ALT 60 H (4-49) U/L Alkaline Phosphatase 162 H (38-126) U/L Total Protein 5.7 L (6.3-8.2) g/dL Albumin 2.6 L (3.5-5.0) g/dL 12/20/20 12/20/20 12/20/20 Range/Units 11:44 16:39 17:04 WBC (3.8-10.6) k/uL RBC (4.30-5.90) m/uL Hgb (13.0-17.5) gm/dL Plt Count (150-450) k/uL PT (9.0-12.0) sec INR (<1.2) Sodium (137-145) mmol/L Potassium 6.0 H (3.5-5.1) mmol/L BUN (9-20) mg/dL Glucose (74-99) mg/dL POC Glucose (mg/dL) 201 H 210 H (75-99) mg/dL Calcium (8.4-10.2) mg/dL Magnesium (1.6-2.3) mg/dL ALT (4-49) U/L Alkaline Phosphatase (38-126) U/L Total Protein (6.3-8.2) g/dL Albumin (3.5-5.0) g/dL 12/20/20 12/21/20 12/21/20 Range/Units 20:37 05:56 07:59 WBC (3.8-10.6) k/uL RBC (4.30-5.90) m/uL Hgb (13.0-17.5) gm/dL Plt Count (150-450) k/uL PT 33.7 H (9.0-12.0) sec INR 3.5 H (<1.2) Sodium (137-145) mmol/L Potassium (3.5-5.1) mmol/L BUN (9-20) mg/dL Glucose (74-99) mg/dL POC Glucose (mg/dL) 293 H 233 H (75-99) mg/dL Calcium (8.4-10.2) mg/dL Magnesium (1.6-2.3) mg/dL ALT (4-49) U/L Alkaline Phosphatase (38-126) U/L Total Protein (6.3-8.2) g/dL Albumin (3.5-5.0) g/dL 12/21/20 Range/Units 07:59 WBC (3.8-10.6) k/uL RBC (4.30-5.90) m/uL Hgb (13.0-17.5) gm/dL Plt Count (150-450) k/uL PT (9.0-12.0) sec INR (<1.2) Sodium (137-145) mmol/L Potassium (3.5-5.1) mmol/L BUN 62 H (9-20) mg/dL Glucose 182 H (74-99) mg/dL POC Glucose (mg/dL) (75-99) mg/dL Calcium 7.9 L (8.4-10.2) mg/dL Magnesium 2.7 H (1.6-2.3) mg/dL ALT 78 H (4-49) U/L Alkaline Phosphatase 215 H (38-126) U/L Total Protein 6.1 L (6.3-8.2) g/dL Albumin 2.8 L (3.5-5.0) g/dL Assessment and Plan Plan: Assessment: 1. Acute kidney injury secondary to ATN secondary to Covid 19 infection. Renal function stable. UA is fairly benign. 2. Covid 19 pneumonia. Currently on 4 L nasal cannula. 3. Hyperkalemia secondary to TOO inhibitor. Improved with medical management. Normal today. 4. Acute hypoxic respiratory failure secondary to pneumonia. 5. Mild volume overload maintained on Lasix. 6. Benign hypertension. Stable. 7. Diabetes mellitus. Plan: Avoid nephrotoxins. Wean FiO2. Continue to monitor renal function and urine output. Hold amlodipine for systolic blood pressure less than 125.
[2020-12-21 09:33] LABS: HCT 42.4 % (39.0-53.0); MCH 32.9 pg (25.0-35.0); MCHC 32.9 g/dL (31.0-37.0); MCV 99.8 fL (80.0-100.0); Macrocytosis Slight; Mean Platelet Volume 10.9; RBC 4.25 m/uL (4.30-5.90); RDW 15.2 % (11.5-15.5); WBC 35.6 k/uL (3.8-10.6)
--- NOTE | 2020-12-21 10:28 | P.PN ---
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, vascular dementia, [facility] and he was taken care off with decadron, ABX along with vitamin supplement, was doing fine till recently when he developed to have increased shortness of breath, along with a drop in his O2 saturation, was seen by myself on Tuesday and he was doing relatively ok, his CXR showed bilateral pneumonia, was on Levaquin for possible secondary bacterial infection and his coumadin was on hold due to coagulopathy, today Nicole the Nurse Practitioner at [facility] saw him and she advised me to send him to the ER for worsening shortness of breath and worsening cough, patient was seen and evaluated in the ER at [facility], CXR showed new bilateral pneumonia suggestive of COVID-19, patient was placed on )2 support and was started on Zithromax 250 mg IVPB daily, and we will be maintained on Decadron 6 mg orally daily and we will obtain pulmonary consult, 12/09: Patient is currently pulse oxing 94-95% on 6 L high flow nasal cannula. He has been afebrile since admission, respiratory rate 24, heart rate 84. Echocardiogram reveals EF of 50-55% with moderate concentric left ventricular hypertrophy, moderate aortic stenosis, mild to moderate mitral regurgitation, moderate pulmonary hypertension. WBC 7.2, hemoglobin 11.6. CO2 21, BUN 59 and creatinine 1.74. Blood sugars have been elevated but most recent one is 147. NovoLog scale started. Patient hasn't seen and followed by pulmonary medicine, supplements added. Patient is continued on dexamethasone, azithromycin. INR is 3.5, pharmacy to dose Coumadin /3: Patient has been seen by cardiology and pulmonary medicine. He has been afebrile, currently pulse oxing 93% on 6 L high flow nasal cannula. Respiratory rate in the 20s. Heart rate 69. INR is 4.6. Glucose running between 161 and 295. Blood culture showing no growth after 24 hours. Patient does not have much appetite. He is dyspneic with very little activity. He continues to have cough. 12/11: Decadron was transitioned to IV Solu-Medrol yesterday by pulmonary medicine. Patient continues to have dyspnea and cough. Pulse ox 90-91% on 10 L nasal cannula. He has been afebrile, heart rate 80, respiratory rate 24. CBC 11.5, hemoglobin 12.2. INR 3.7. BUN 67 and creatinine 1.6. Blood sugars ran between 94 and 240. Blood culture is no growth. 12/12: Patient is awake and alert. He is currently on 10 L nasal cannula with pulse ox of 91%. He has been afebrile, heart rate 77, blood pressure 139/74. 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 INR is 2.4. Pharmacy is dosing Coumadin. Blood sugars are 193-225. Levemir will be increased to 45 units at bedtime. Patient denies any fever or chills. He continues to have cough. Patient experiences shortness of breath with minimal activity. Patient is continued on IV Solu-Medrol 60 mg every 6 hours, azithromycin and supplement for Covid 19. 12/15: INR is 8.6 and patient will be ordered for vitamin K 1 dose IV piggyback. Patient states he is not eating much and does not have much appetite. He complains of feeling weak. He has no phlegm production. WBC 19, hemoglobin 12.6, platelet count 128. Electrolytes normal. BUN 71 and creatinine 1.25. Blood sugars running between 139 and 169. Consult added for nephrology for increasing BUN. Repeat chest x-ray reveals persistent but improving infiltrates seen throughout both lung godfrey. 94% on 15 L high flow nasal cannula. He has been afebrile, heart rate in 60s and 70s, blood pressure 143/67. 12/16: Patient continues to not eat very much with low appetite. Repeat INR today is at 1.5 and pharmacy is dosing Coumadin. Blood sugars are improved after changes made yesterday. He has been afebrile, heart rate 73, blood pressure 157/67, pulse ox 94% on 13 L high flow nasal cannula. WBC 22.4, hemoglobin 12.6, platelet count 137. BUN 64 and creatinine 1.32. Blood sugars running bet ween 148 in the 181. LDH 1650. Alkaline phosphatase 171. 12/17: Patient lost IV access this morning and midline was ordered. He is currently pulse oxing 92% on 3 L nasal cannula. Patient states he has had multiple bowel movements this morning. Documented 4 bowel movements today. Stools will be sent for C. difficile toxin. Noted pauses on forestry consultant and cardiology consult has been added. Bisoprolol discontinued. INR 1.4 and patient received Coumadin 5 mg last evening. WBC 26.7. Sodium 135, potassium 5.4, chloride 108, CO2 20, BUN 63 and creatinine 1.16. Blood sugars are running between 150 and 167. LDH is greater than 2150. C-reactive protein is less than 5. Urinalysis negative for infection. Patient noted to have increased edema and Lasix 40 mg 1 ordered. Patient continues to have decreased appetite. 12/18: Multiple attempts have been done to draw his blood but have been unsuccessful. Patient has not been eating because he does not like hospital food. His daughter brought in food for lunch which he very much enjoyed. Blood sugars are running between 97 and 170. He has been afebrile, heart rate 63, blood pressure 128/60, pulse ox 93% on 6 L nasal cannula. Patient's respiratory status appears to be stable. He does have shortness of breath with exertion which is minimal activity. Patient remains on supplements, colchicine. Coumadin is being dosed by pharmacy. [facility] updated for possible discharge tomorrow. 12/19: His respiratory status is stable. He is currently pulse ox of 91% on 2 L. Pulmonary medicine has signed off this case. Patient is eating well when his daughter brings in food. He is complaining of sore throat for which nystatin o rdered. Heart rate 74, blood pressure 158/74, patient has been afebrile. Staff have been unable to obtain blood work for the past 2 days. Authorization to use [facility] for blood draws has been given. Lab work also ordered for tomorrow. Anticipate he will be ready for discharge to return to [facility] tomorrow. 12/20: Patient appears to be weaker today, his oxygen requirement is down to 4 L nasal cannula, unfortunately CBC went up to 30,000, discontinue Solu-Medrol, monitor the patient for another one or 2 days, we will cancel the discharge for today hopefully we'll transfer him back to [facility] on Tuesday. 12/21: Patient feels about the same his oxygen requirement is lower, he continues to be generally weak, his soreness in his mouth is better, his appetite is not as good, he has no chest pain, less shortness of breath, occasional cough, he has no abdominal pain, nausea, vomiting, patient was taken off his Solu-Medrol, we'll monitor him very closely hopefully he will be able to be discharged to [facility] tomorrow morning. Objective - Vital Signs Vital signs: Vital Signs Temp 97.8 F 12/21/20 04:00 Pulse 97 12/21/20 04:00 Resp 20 12/21/20 04:00 BP 110/56 12/21/20 04:00 Pulse Ox 90 L 12/21/20 04:05 Intake & Output 12/20/20 12/21/20 12/21/20 18:59 06:59 18:59 Intake Total 1080 475 0 Output Total 1 Balance 1080 474 0 Weight 77 kg Intake: Oral 1080 475 0 Output: Stool 1 Other: Voiding Method Diaper Diaper Incontinent Incontinent # Voids 2 1 # Bowel Movements 2 - Exam Exam Review of Systems Constitutional: Reports fatigue, Reports night sweats, Reports generalized weakness continues Eyes: bilateral blurred vision, bilateral decreased vision Ears: bilateral: decreased hearing Ears, nose, mouth and throat: Denies dysphagia, Denies neck lump, Denies sore throat Cardiovascular: Reports decreased exercise tolerance, Reports dyspnea on minimal exertion, reports edema, Reports irregular heart beat, Reports shortness of breath, Denies chest pain, Denies orthopnea, Denies rapid heart beat, Denies syncope Respiratory: Reports congestion, Reports cough, Reports cough with sputum, Reports dyspnea, Reports home oxygen, Reports respiratory infections, Reports wheezing, Denies sleep apnea, Denies snoring Gastrointestinal: Reports nausea, Denies abdominal pain, Denies belching, Denies BRBPR, Denies change in bowel habits, Denies diarrhea, reports loss of appetite, Denies melena, Denies vomiting Genitourinary: Reports nocturia, Denies dysuria Musculoskeletal: Reports gait dysfunction, Reports morning stiffness Musculoskeletal: absent: ankle pain, ankle stiffness, elbow pain, elbow stiffness, elbow swelling, foot pain, foot stiffness, foot swelling, hand pain, hand stiffness, hand swelling, hip pain, hip stiffness, hip swelling, knee pain, knee stiffness, knee swelling, shoulder pain, shoulder stiffness, shoulder swelling, wrist pain, wrist stiffness, wrist swelling Integumentary: Denies pruritus, Denies rash Neurological: Reports confusion, Reports gait dysfunction, Reports memory loss, Reports weakness, Reports visual changes Psychiatric: Denies anxiety, Denies depression Endocrine: Denies fatigue, Denies weight change Physical examination: General: 89-year-old male. He is sitting up in bed with minimal respiratory distress at rest. HEENT: head is atraumatic normocephalic pupils were equal round reactive to light and accommodations extra ocular muscle movements were intact. mucous membranes of the mouth are moist. Oral thrush. Neck: supple no JVP, decreased carotid upstrokes bilaterally. Chest: decrease breath sounds at the bases with few ronchi, minimal intercostal retractions. Heart: first heart sound is depressed, second heart sound is normal irregularly irregular there is VALARIE 2/6 located in the left sternal border. Abdomen: soft non tender, non distended positive bowel sounds. Extremities: there is 1+ bilateral edema no calf tenderness , DP +1 bilaterally. Neurologic examination: patient is awake alert and oriented X 2 CN II-XII are grossly intact, muscle power 4/5 in bilateral upper extremities and 3/5 in bilateral lower extremities, deep tendon reflexes were depressed. - Labs CBC & Chem 7: 12/20/20 10:56 12/21/20 07:59 Labs: Abnormal Lab Results - Last 24 Hours (Table) 12/20/20 12/20/20 12/20/20 Range/Units 10:56 10:56 10:56 WBC 30.2 H (3.8-10.6) k/uL RBC 3.98 L (4.30-5.90) m/uL Hgb 12.7 L (13.0-17.5) gm/dL Plt Count 75 L (150-450) k/uL PT 30.8 H (9.0-12.0) sec INR 3.2 H (<1.2) Sodium 133 L (137-145) mmol/L Potassium 5.5 H (3.5-5.1) mmol/L BUN 63 H (9-20) mg/dL Glucose 219 H (74-99) mg/dL POC Glucose (mg/dL) (75-99) mg/dL Calcium 7.6 L (8.4-10.2) mg/dL Magnesium (1.6-2.3) mg/dL ALT 60 H (4-49) U/L Alkaline Phosphatase 162 H (38-126) U/L Total Protein 5.7 L (6.3-8.2) g/dL Albumin 2.6 L (3.5-5.0) g/dL 12/20/20 12/20/20 12/20/20 Range/Units 11:44 16:39 17:04 WBC (3.8-10.6) k/uL RBC (4.30-5.90) m/uL Hgb (13.0-17.5) gm/dL Plt Count (150-450) k/uL PT (9.0-12.0) sec INR (<1.2) Sodium (137-145) mmol/L Potassium 6.0 H (3.5-5.1) mmol/L BUN (9-20) mg/dL Glucose (74-99) mg/dL POC Glucose (mg/dL) 201 H 210 H (75-99) mg/dL Calcium (8.4-10.2) mg/dL Magnesium (1.6-2.3) mg/dL ALT (4-49) U/L Alkaline Phosphatase (38-126) U/L Total Protein (6.3-8.2) g/dL Albumin (3.5-5.0) g/dL 12/20/20 12/21/20 12/21/20 Range/Units 20:37 05:56 07:59 WBC (3.8-10.6) k/uL RBC (4.30-5.90) m/uL Hgb (13.0-17.5) gm/dL Plt Count (150-450) k/uL PT 33.7 H (9.0-12.0) sec INR 3.5 H (<1.2) Sodium (137-145) mmol/L Potassium (3.5-5.1) mmol/L BUN (9-20) mg/dL Glucose (74-99) mg/dL POC Glucose (mg/dL) 293 H 233 H (75-99) mg/dL Calcium (8.4-10.2) mg/dL Magnesium (1.6-2.3) mg/dL ALT (4-49) U/L Alkaline Phosphatase (38-126) U/L Total Protein (6.3-8.2) g/dL Albumin (3.5-5.0) g/dL 12/21/20 Range/Units 07:59 WBC (3.8-10.6) k/uL RBC (4.30-5.90) m/uL Hgb (13.0-17.5) gm/dL Plt Count (150-450) k/uL PT (9.0-12.0) sec INR (<1.2) Sodium (137-145) mmol/L Potassium (3.5-5.1) mmol/L BUN 62 H (9-20) mg/dL Glucose 182 H (74-99) mg/dL POC Glucose (mg/dL) (75-99) mg/dL Calcium 7.9 L (8.4-10.2) mg/dL Magnesium 2.7 H (1.6-2.3) mg/dL ALT 78 H (4-49) U/L Alkaline Phosphatase 215 H (38-126) U/L Total Protein 6.1 L (6.3-8.2) g/dL Albumin 2.8 L (3.5-5.0) g/dL Assessment and Plan Assessment: Assessment and Plan Plan: 1. Acute hypoxic respiratory failure due to COVID-19 pneumonia. Continue IV Solu-Medrol 60 mg IV every 6 hours decreased to 40 mg IV every 8 hours, Zithromax discontinued, O2 support , Ventolin HFA 2 puffs inhalation Q 4 h, colchicine 0.6 mg twice daily, pulmonary consult appreciated. 2. Acute kidney injury on CKD 3a. Consult with nephrology. Lasix dosed as needed. 3. Hypertension and hypertensive cardiovascular disease. we will continue with Lisinopril 20 mg orally at bedtime. 4. Hyperlipidemia. we will continue with Lipitor 40 mg orally daily. 5. Diabetes mellitus type 2 uncontrolled with hyperglycemia secondary to steroids. Continue Levemir increased to 45 units at bedtime, continue NovoLog scheduled 7 units 3 times daily with meals, continue NovoLog scale before meals and at bedtime, Tradjenta 5 mg daily. Blood sugars are improved. 6. history of CVA and TIA with left carotid disease. we will continue with Lipitor 40 mg orally daily for secondary CVA prevention. 7. Atrial fibrillation/flutter. Beta kevin on hold. Heart rate is controlled. 8. Coagulopathy due to coumadin use and interaction with Levaquin and now Zithromax. we will continue to monitor daily, pharmacy dosing Coumadin. Status post vitamin K. Continue to monitor closely. 9. enlarged prostate. we will continue with Flomax 0.4 mg orally daily. 10. Vitamin d deficiency. we will continue with vitamin D supplement and we will check levels. 11. DVT prophylaxis. we will continue with Bilateral Knee-High Moshe Hose and we will resume coumadin in AM. 12. GI prophylaxis. we will continue with PPI. 13. Oral thrush. Patient started on nystatin swish and swallow. Discharge plan: back to [facility] on Tuesday.
[2020-12-21] MEDS: CYANOCOBALAMIN 500 MCG TAB PO SCH (11:05)
[2020-12-21] MEDS: CHOLECALCIFEROL 25 MCG (1000 IU) TABLET PO SCH (11:05)
[2020-12-21] MEDS: FUROSEMIDE 40 MG TAB PO SCH (11:06)
[2020-12-21] MEDS: COLCHICINE 0.6 MG EACH PO SCH ×2 (11:06→22:53)
[2020-12-21] MEDS: ZINC SULFATE 220 MG CAP PO SCH (11:06)
[2020-12-21] MEDS: TAMSULOSIN 0.4 MG CAP.ER.24H PO SCH (11:06)
[2020-12-21] MEDS: amLODIPine 5 MG TAB PO SCH (11:06)
[2020-12-21] MEDS: ASCORBIC ACID 500 MG TAB PO SCH (11:06)
[2020-12-21] MEDS: NON FORMULARY DRUG (Omega-3 Acid Ethyl Esters [Lovaza] 1 GM Capsule) PO SCH ×2 (11:07→17:53)
[2020-12-21] MEDS: NYSTATIN 100,000 UNIT/ML SUSP 500,000 UNIT/5 ML CUP PO SCH ×4 (11:07→22:55)
[2020-12-21] MEDS: LINAGLIPTIN 5 MG TABLET PO SCH (11:08)
[2020-12-21 11:40] LABS: Glucose,Whole Blood 155 mg/dL (75-99)
[2020-12-21 11:41] LABS: Lymphocytes # (M) 2.85 k/uL (1.0-4.8); Monocytes # (M) 2.49 k/uL (0-1.0); Neutrophils # (M) 30.26 k/uL (1.3-7.7); Neutrophils % (M) 85 %; Nucleated Red Blood Cells 0 /100 WBC (0-0); Total Cells Counted 100
[2020-12-21 11:44] LABS: Toxic Vacuolation Present
[2020-12-21 11:46] LABS: Platelet Count 141 k/uL (150-450)
--- NOTE | 2020-12-21 14:04 | P.PN ---
Subjective Progress Note Date: 12/21/20 This is an 89-year-old gentleman with a past medical history significant for atrial fibrillation/flutter, COPD, hypertension, hyperlipidemia, right carotid stenosis. He presented to the hospital with COVID pneumonia. Breasts to see the patient in consultation due to pauses while in atrial fibrillation. He did have an echocardiogram which showed ejection fraction 50-55%, mild AR, moderate aortic stenosis, mild to moderate MR and moderate pulmonary hypertension. His beta kevin was discontinued and his heart rate has improved. Maintaining mostly in the 80s. He continues to be anticoagulated on Coumadin. 12/21/20 The patient remains in atrial fibrillation heart rate is controlled with no further pauses. INR is 3.5 with Coumadin dosing per pharmacy. Objective - Vital Signs Vital signs: Vital Signs Temp 97.4 F L 12/21/20 12:00 Pulse 86 12/21/20 12:00 Resp 18 12/21/20 12:00 BP 109/56 12/21/20 12:00 Pulse Ox 94 L 12/21/20 12:00 Intake & Output 12/20/20 12/21/20 12/21/20 18:59 06:59 18:59 Intake Total 1080 475 0 Output Total 1 Balance 1080 474 0 Weight 77 kg Intake: Oral 1080 475 0 Output: Stool 1 Other: Voiding Method Diaper Diaper Incontinent Incontinent # Voids 2 1 # Bowel Movements 2 - Exam Thorough physical exam not completed secondary to limited evaluation/examination and due to Covid19 - Labs CBC & Chem 7: 12/21/20 07:59 12/21/20 07:59 Labs: Abnormal Lab Results - Last 24 Hours (Table) 12/20/20 12/20/20 12/20/20 Range/Units 16:39 17:04 20:37 WBC (3.8-10.6) k/uL RBC (4.30-5.90) m/uL Plt Count (150-450) k/uL Neutrophils # (Manual) (1.3-7.7) k/uL Monocytes # (Manual) (0-1.0) k/uL PT (9.0-12.0) sec INR (<1.2) Potassium 6.0 H (3.5-5.1) mmol/L BUN (9-20) mg/dL Glucose (74-99) mg/dL POC Glucose (mg/dL) 210 H 293 H (75-99) mg/dL Calcium (8.4-10.2) mg/dL Magnesium (1.6-2.3) mg/dL ALT (4-49) U/L Alkaline Phosphatase (38-126) U/L Total Protein (6.3-8.2) g/dL Albumin (3.5-5.0) g/dL 12/21/20 12/21/20 12/21/20 Range/Units 05:56 07:59 07:59 WBC (3.8-10.6) k/uL RBC (4.30-5.90) m/uL Plt Count (150-450) k/uL Neutrophils # (Manual) (1.3-7.7) k/uL Monocytes # (Manual) (0-1.0) k/uL PT 33.7 H (9.0-12.0) sec INR 3.5 H (<1.2) Potassium (3.5-5.1) mmol/L BUN 62 H (9-20) mg/dL Glucose 182 H (74-99) mg/dL POC Glucose (mg/dL) 233 H (75-99) mg/dL Calcium 7.9 L (8.4-10.2) mg/dL Magnesium 2.7 H (1.6-2.3) mg/dL ALT 78 H (4-49) U/L Alkaline Phosphatase 215 H (38-126) U/L Total Protein 6.1 L (6.3-8.2) g/dL Albumin 2.8 L (3.5-5.0) g/dL 12/21/20 12/21/20 Range/Units 07:59 11:39 WBC 35.6 H (3.8-10.6) k/uL RBC 4.25 L (4.30-5.90) m/uL Plt Count 141 L D (150-450) k/uL Neutrophils # (Manual) 30.26 H (1.3-7.7) k/uL Monocytes # (Manual) 2.49 H (0-1.0) k/uL PT (9.0-12.0) sec INR (<1.2) Potassium (3.5-5.1) mmol/L BUN (9-20) mg/dL Glucose (74-99) mg/dL POC Glucose (mg/dL) 155 H (75-99) mg/dL Calcium (8.4-10.2) mg/dL Magnesium (1.6-2.3) mg/dL ALT (4-49) U/L Alkaline Phosphatase (38-126) U/L Total Protein (6.3-8.2) g/dL Albumin (3.5-5.0) g/dL Assessment and Plan Assessment: #1 COVID 19 #2 acute hypoxic respiratory failure #3 chronic persistent atrial fibrillation, on Coumadin ventricular response, improved after stopping beta blockers #4 hypertension #5 hyperlipidemia #6 diabetes mellitus #7 dementia Plan: From cardiology perspective continue Coumadin dosing per pharmacy with a goal INR of 2-3. Heart rate is better controlled with no pauses off beta blockers. At this time will follow the patient on an as-needed basis. Please do not hesitate to contact us with questions. The above dictated assessment and findings were discussed with signing physician. The impression and plan of care have been directed as dictated. Beverly Anders, Nurse Practitioner, acting as scribe for signing physician.
[2020-12-21 16:56] LABS: Glucose,Whole Blood 156 mg/dL (75-99)
[2020-12-21] MEDS ORDERED: WARFARIN 0.5 MG TAB PO ONE (18:00)
[2020-12-21 20:43] LABS: Glucose,Whole Blood 71 mg/dL (75-99)
[2020-12-21] MEDS: MELATONIN 1 MG TAB PO SCH (22:53)
[2020-12-21] MEDS: ATORVASTATIN 40 MG TAB PO SCH (22:53)
[2020-12-21] MEDS: FAMOTIDINE 20 MG TAB PO SCH (22:53)
[2020-12-21] MEDS: MIRTAZAPINE 15 MG TAB PO SCH (22:53)
[2020-12-21] MEDS: INSULIN DETEMIR (LEVEMIR) 100 UNIT/ML SYR SQ SCH (22:54)
[2020-12-22 06:36] LABS: Glucose,Whole Blood 39 mg/dL (75-99)
[2020-12-22 06:36] LABS: Glucose,Whole Blood 44 mg/dL (75-99)
[2020-12-22 07:00] LABS: Glucose,Whole Blood 30 mg/dL (75-99)
[2020-12-22] MEDS ORDERED: DEXTROSE 50% SYRINGE 50 ML IVP ONE (07:02)
[2020-12-22] MEDS: DEXTROSE 50% SYRINGE 50 ML IVP STA (07:05)
[2020-12-22 07:22] LABS: Glucose,Whole Blood 83 mg/dL (75-99)
[2020-12-22] MEDS: amLODIPine 5 MG TAB PO SCH (09:06)
[2020-12-22] MEDS: INSULIN ASPART (NovoLOG) 100 UNIT/ML VIAL SQ SCH ×6 (09:06→17:16)
[2020-12-22] MEDS: CHOLECALCIFEROL 25 MCG (1000 IU) TABLET PO SCH (09:06)
[2020-12-22] MEDS: CYANOCOBALAMIN 500 MCG TAB PO SCH (09:06)
[2020-12-22] MEDS: COLCHICINE 0.6 MG EACH PO SCH ×2 (09:06→23:25)
[2020-12-22] MEDS: NON FORMULARY DRUG (Omega-3 Acid Ethyl Esters [Lovaza] 1 GM Capsule) PO SCH ×2 (09:07→17:11)
[2020-12-22] MEDS: NYSTATIN 100,000 UNIT/ML SUSP 500,000 UNIT/5 ML CUP PO SCH ×4 (09:07→23:27)
[2020-12-22] MEDS: ZINC SULFATE 220 MG CAP PO SCH (09:07)
[2020-12-22] MEDS: TAMSULOSIN 0.4 MG CAP.ER.24H PO SCH (09:07)
[2020-12-22] MEDS: FUROSEMIDE 40 MG TAB PO SCH (09:07)
[2020-12-22] MEDS: ASCORBIC ACID 500 MG TAB PO SCH (09:07)
[2020-12-22] MEDS: LINAGLIPTIN 5 MG TABLET PO SCH (09:08)
[2020-12-22] MEDS: ALBUTEROL HFA INHALER INHALATION SCH ×4 (09:27→19:33)
[2020-12-22 09:38] LABS: HGB 13.6 gm/dL (13.0-17.5); Hypochromasia Slight; MCH 32.1 pg (25.0-35.0); MCV 103.5 fL (80.0-100.0); Macrocytosis Slight; Mean Platelet Volume 11.2; RBC 4.25 m/uL (4.30-5.90); RDW 14.7 % (11.5-15.5); WBC 27.5 k/uL (3.8-10.6)
[2020-12-22 09:45] LABS: Calcium 7.5 mg/dL (8.4-10.2); Potassium 5.8 mmol/L (3.5-5.1)
[2020-12-22 09:52] LABS: INR 2.4 (<1.2); Prothrombin Time 23.5 sec (9.0-12.0)
[2020-12-22 10:54] LABS: Platelet Count 64 k/uL (150-450)
[2020-12-22 12:20] LABS: Glucose,Whole Blood 114 mg/dL (75-99)
--- NOTE | 2020-12-22 13:33 | XR ---
EXAMINATION TYPE: XR chest 1V portable DATE OF EXAM: 12/22/2020 COMPARISON: 12/17/2020 INDICATION: Covid follow-up TECHNIQUE: Single frontal view of the chest is obtained. FINDINGS: The heart size is mildly prominent. The pulmonary vasculature is normal. Patchy infiltrates to the right upper lobe and at the bilateral lung bases. Findings appear to be wor sening. IMPRESSION: 1. Worsening bilateral nonspecific lung infiltrates. Findings can be compatible with atypical pneumon ia in the proper clinical setting.
[2020-12-22 17:14] LABS: Glucose,Whole Blood 131 mg/dL (75-99)
[2020-12-22 17:26] VITALS: RESP 20
[2020-12-22] MEDS ORDERED: WARFARIN 1 MG TAB PO ONE (18:00)
[2020-12-22 20:30] LABS: Glucose,Whole Blood 142 mg/dL (75-99)
[2020-12-22] MEDS: ATORVASTATIN 40 MG TAB PO SCH (23:25)
[2020-12-22] MEDS: MIRTAZAPINE 15 MG TAB PO SCH (23:25)
[2020-12-22] MEDS: INSULIN DETEMIR (LEVEMIR) 100 UNIT/ML SYR SQ SCH (23:26)
[2020-12-22] MEDS: FAMOTIDINE 20 MG TAB PO SCH (23:27)
[2020-12-22] MEDS: MELATONIN 1 MG TAB PO SCH (23:27)
[2020-12-23 07:00] LABS: Glucose,Whole Blood 46 mg/dL (75-99)
[2020-12-23 07:00] LABS: Glucose,Whole Blood 41 mg/dL (75-99)
[2020-12-23 07:14] LABS: Glucose,Whole Blood 63 mg/dL (75-99)
[2020-12-23 07:49] LABS: Glucose,Whole Blood 52 mg/dL (75-99)
[2020-12-23 07:49] LABS: Glucose,Whole Blood 59 mg/dL (75-99)
[2020-12-23] MEDS: ALBUTEROL HFA INHALER INHALATION SCH ×4 (07:55→15:40)
[2020-12-23] MEDS: INSULIN ASPART (NovoLOG) 100 UNIT/ML VIAL SQ SCH ×4 (07:58→17:10)
[2020-12-23] MEDS ORDERED: DEXTROSE 50% SYRINGE 50 ML IVP ONE (07:59)
[2020-12-23] MEDS: DEXTROSE 50% SYRINGE 50 ML IVP STA (08:06)
[2020-12-23 08:37] LABS: Glucose,Whole Blood 167 mg/dL (75-99)
--- NOTE | 2020-12-23 09:21 | P.PN ---
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, vascular dementia, patient [facility] and he was taken care off with decadron, ABX along with vitamin supplement, was doing fine till recently when he developed to have increased shortness of breath, along with a drop in his O2 saturation, was seen by myself on Tuesday and he was doing relatively ok, his CXR showed bilateral pneumonia, was on Levaquin for possible secondary bacterial infection and his coumadin was on hold due to coagulopathy, today Nicole the Nurse Practitioner at [facility] saw him and she advised me to send him to the ER for worsening shortness of breath and worsening cough, patient was seen and evaluated in the ER at [facility], CXR showed new bilateral pneumonia suggestive of COVID-19, patient was placed on )2 support and was started on Zithromax 250 mg IVPB daily, and we will be maintained on Decadron 6 mg orally daily and we will obtain pulmonary consult, 12/09: Patient is currently pulse oxing 94-95% on 6 L high flow nasal cannula. He has been afebrile since admission, respiratory rate 24, heart rate 84. Echocardiogram reveals EF of 50-55% with moderate concentric left ventricular hypertrophy, moderate aortic stenosis, mild to moderate mitral regurgitation, moderate pulmonary hypertension. WBC 7.2, hemoglobin 11.6. CO2 21, BUN 59 and creatinine 1.74. Blood sugars have been elevated but most recent one is 147. NovoLog scale started. Patient hasn't seen and followed by pulmonary medicine, supplements added. Patient is continued on dexamethasone, azithromycin. INR is 3.5, pharmacy to dose Coumadin /3: Patient has been seen by cardiology and pulmonary medicine. He has been afebrile, currently pulse oxing 93% on 6 L high flow nasal cannula. Respiratory rate in the 20s. Heart rate 69. INR is 4.6. Glucose running between 161 and 295. Blood culture showing no growth after 24 hours. Patient does not have much appetite. He is dyspneic with very little activity. He continues to have cough. 12/11: Decadron was transitioned to IV Solu-Medrol yesterday by pulmonary medicine. Patient continues to have dyspnea and cough. Pulse ox 90-91% on 10 L nasal cannula. He has been afebrile, heart rate 80, respiratory rate 24. CBC 1 1.5, hemoglobin 12.2. INR 3.7. BUN 67 and creatinine 1.6. Blood sugars ran between 94 and 240. Blood culture is no growth. 12/12: Patient is awake and alert. He is currently on 10 L nasal cannula with pulse ox of 91%. He has been afebrile, heart rate 77, blood pressure 139/74. youth nutritional monitor atrial fibrillation and controlled rate. INR is 2.4. Pharmacy is dosing Coumadin. Blood sugars are 193-225. Levemir will be increased to 45 units at bedtime. Patient denies any fever or chills. He continues to have cough. Patient experiences shortness of breath with minimal activity. Patient is continued on IV Solu-Medrol 60 mg every 6 hours, azithromycin and supplement for Covid 19. 12/15: INR is 8.6 and patient will be ordered for vitamin K 1 dose IV piggyback. Patient states he is not eating much and does not have much appetite. He complains of feeling weak. He has no phlegm production. WBC 19, hemoglobin 12.6, platelet count 128. Electrolytes normal. BUN 71 and creatinine 1.25. Blood sugars running between 139 and 169. Consult added for nephrology for increasing BUN. Repeat chest x-ray reveals persistent but improving infiltrates seen throughout both lung godfrey. 94% on 15 L high flow nasal cannula. He has been afebrile, heart rate in 60s and 70s, blood pressure 143/67. 12/16: Patient continues to not eat very much with low appetite. Repeat INR today is at 1.5 and pharmacy is dosing Coumadin. Blood sugars are improved after changes made yesterday. He has been afebrile, heart rate 73, blood pressure 157/67, pulse ox 94% on 13 L high flow nasal cannula. WBC 22.4, hemoglobin 12.6, platelet count 137. BUN 64 and creatinine 1.32. Blood sugars running between 148 in the 181. LDH 1650. Alkaline phosphatase 171. 12/17: Patient lost IV access this morning and midline was ordered. He is currently pulse oxing 92% on 3 L nasal cannula. Patient states he has had multiple bowel movements this morning. Documented 4 bowel movements today. Stools will be sent for C. difficile toxin. Noted pauses on youth nutritional monitor and cardiology consult has been added. Bisoprolol discontinued. INR 1.4 and patient received Coumadin 5 mg last evening. WBC 26.7. Sodium 135, potassium 5.4, chloride 108, CO2 20, BUN 63 and creatinine 1.16. Blood sugars are running between 150 and 167. LDH is greater than 2150. C-reactive protein is less than 5. Urinalysis negative for infection. Patient noted to have increased edema and Lasix 40 mg 1 ordered. Patient continues to have decreased appetite. 12/18: Multiple attempts have been done to draw his blood but have been unsuccessful. Patient has not been eating because he does not like hospital food. His daughter brought in food for lunch which he very much enjoyed. Blood sugars are running between 97 and 170. He has been afebrile, heart rate 63, blood pressure 128/60, pulse ox 93% on 6 L nasal cannula. Patient's respiratory status appears to be stable. He does have shortness of breath with exertion w hich is minimal activity. Patient remains on supplements, colchicine. Coumadin is being dosed by pharmacy. [facility] updated for possible discharge tomorrow. 12/19: His respiratory status is stable. He is currently pulse ox of 91% on 2 L. Pulmonary medicine has signed off this case. Patient is eating well when his daughter brings in food. He is complaining of sore throat for which nystatin or dered. Heart rate 74, blood pressure 158/74, patient has been afebrile. Staff have been unable to obtain blood work for the past 2 days. Authorization to use [facility] for blood draws has been given. Lab work also ordered for tomorrow. Anticipate he will be ready for discharge to return to [facility] tomorrow. 12/20: Patient appears to be weaker today, his oxygen requirement is down to 4 L nasal cannula, unfortunately CBC went up to 30,000, discontinue Solu-Medrol, monitor the patient for another one or 2 days, we will cancel the discharge for today hopefully we'll transfer him back to [facility] on Tuesday. 12/21: Patient feels about the same his oxygen requirement is lower, he continues to be generally weak, his soreness in his mouth is better, his appetite is not as good, he has no chest pain, less shortness of breath, occasional cough, he has no abdominal pain, nausea, vomiting, patient was taken off his Solu-Medrol, we'll monitor him very closely hopefully he will be able to be discharged to [facility] tomorrow morning. 12/22: Lab work has been reviewed and stable. Solu-Medrol was completely discontinued over the weekend and prednisone will also be discontinued for the [facility]. Patient was placed on NRB and 15L high-flow n/c during the night for low pulse-ox. He has been weaned down to 12 liters and we will decrease to 5L. Low pulse-ox appears to be more of a malfunction of the device as he is oxygenating well at time of eval with no respiratory distress. He is afebrile, HR 114, BP 136/61. Patient is eating well for lunch. No signs of aspiration. Pulmonary medicine has signed off. We will plan to monitor overnight and possibly discharge back to [facility] tomorrow. Objective - Vital Signs Vital signs: Vital Signs Temp 98.3 F 12/22/20 12:28 Pulse 114 H 12/22/20 12:28 Resp 16 12/22/20 12:28 BP 136/61 12/22/20 12:28 Pulse Ox 99 12/22/20 12:28 Intake & Output 12/21/20 12/22/20 12/22/20 18:59 06:59 18:59 Intake Total 720 0 236 Output Total 2 2 Balance 718 -2 236 Weight 77 kg Intake: Oral 720 0 236 Output: Stool 2 2 Other: Voiding Method Diaper Diaper Incontinent Incontinent # Voids 2 # Bowel Movements 1 1 - Exam Review of Systems Constitutional: Reports fatigue, Reports night sweats, Reports generalized weakness continues Eyes: bilateral blurred vision, bilateral decreased vision Ears: bilateral: decreased hearing Ears, nose, mouth and throat: Denies dysphagia, Denies neck lump, Denies sore throat Cardiovascular: Reports decreased exercise tolerance, Reports dyspnea on minimal exertion, reports edema, Reports irregular heart beat, Reports shortness of breath, Denies chest pain, Denies orthopnea, Denies rapid heart beat, Denies syncope Respiratory: Reports congestion, Reports cough, Reports cough with sputum, denies dyspnea, Reports home oxygen, Reports respiratory infections, Reports wheezing, Denies sleep apnea, Denies snoring Gastrointestinal: Reports nausea, Denies abdominal pain, Denies belching, Denies BRBPR, Denies change in bowel habits, Denies diarrhea, reports loss of appetite, Denies melena, Denies vomiting Genitourinary: Reports nocturia, Denies dysuria Musculoskeletal: Reports gait dysfunction, Reports morning stiffness Musculoskeletal: absent: ankle pain, ankle stiffness, elbow pain, elbow stiffness, elbow swelling, foot pain, foot stiffness, foot swelling, hand pain, hand stiffness, hand swelling, hip pain, hip stiffness, hip swelling, knee pain, knee stiffness, knee swelling, shoulder pain, shoulder stiffness, shoulder swelling, wrist pain, wrist stiffness, wrist swelling Integumentary: Denies pruritus, Denies rash Neurological: Reports confusion, Reports gait dysfunction, Reports memory loss, Reports weakness, Reports visual changes Psychiatric: Denies anxiety, Denies depression Endocrine: Denies fatigue, Denies weight change Physical examination: General: 89-year-old male. He is sitting up in bed with minimal respiratory distress at rest. HEENT: head is atraumatic normocephalic pupils were equal round reactive to light and accommodations extra ocular muscle movements were intact. mucous membranes of the mouth are moist. Neck: supple no JVP, decreased carotid upstrokes bilaterally. Chest: decrease breath sounds at the bases with few ronchi, minimal intercostal retractions. Heart: first heart sound is depressed, second heart sound is normal irregularly irregular there is VALARIE 2/6 located in the left sternal border. Abdomen: soft non tender, non distended positive bowel sounds. Extremities: there is 1+ bilateral edema no calf tenderness , DP +1 bilaterally. Neurologic examination: patient is awake alert and oriented X 2 CN II-XII are grossly intact, muscle power 4/5 in bilateral upper extremities and 3/5 in bilateral lower extremities, deep tendon reflexes were depressed. - Labs CBC & Chem 7: 12/22/20 09:26 12/22/20 09:26 Labs: Abnormal Lab Results - Last 24 Hours (Table) 12/21/20 12/21/20 12/22/20 Range/Units 16:54 20:41 06:33 WBC (3.8-10.6) k/uL RBC (4.30-5.90) m/uL MCV (80.0-100.0) fL Plt Count (150-450) k/uL PT (9.0-12.0) sec INR (<1.2) Sodium (137-145) mmol/L Potassium (3.5-5.1) mmol/L BUN (9-20) mg/dL Creatinine (0.66-1.25) mg/dL Glucose (74-99) mg/dL POC Glucose (mg/dL) 156 H 71 L 44 L (75-99) mg/dL Calcium (8.4-10.2) mg/dL 12/22/20 12/22/20 12/22/20 Range/Units 06:35 06:55 09:26 WBC (3.8-10.6) k/uL RBC (4.30-5.90) m/uL MCV (80.0-100.0) fL Plt Count (150-450) k/uL PT 23.5 H (9.0-12.0) sec INR 2.4 H (<1.2) Sodium (137-145) mmol/L Potassium (3.5-5.1) mmol/L BUN (9-20) mg/dL Creatinine (0.66-1.25) mg/dL Glucose (74-99) mg/dL POC Glucose (mg/dL) 39 L 30 L (75-99) mg/dL Calcium (8.4-10.2) mg/dL 12/22/20 12/22/20 12/22/20 Range/Units 09:26 09:26 12:19 WBC 27.5 H (3.8-10.6) k/uL RBC 4.25 L (4.30-5.90) m/uL MCV 103.5 H (80.0-100.0) fL Plt Count 64 L D (150-450) k/uL PT (9.0-12.0) sec INR (<1.2) Sodium 133 L (137-145) mmol/L Potassium 5.8 H (3.5-5.1) mmol/L BUN 57 H (9-20) mg/dL Creatinine 1.37 H (0.66-1.25) mg/dL Glucose 128 H (74-99) mg/dL POC Glucose (mg/dL) 114 H (75-99) mg/dL Calcium 7.5 L (8.4-10.2) mg/dL Assessment and Plan Plan: 1. Acute hypoxic respiratory failure due to COVID-19 pneumonia. Solu-Medrol discontinued, Zithromax discontinued, O2 support , Ventolin HFA 2 puffs inhalation Q 4 h, colchicine 0.6 mg twice daily, pulmonary consult appreciated. Pulmonary medicine has signed off. Continue to wean O2 to 5L. 2. Acute kidney injury on CKD 3a. Consult with nephrology. Lasix dosed as needed. 3. Hypertension and hypertensive cardiovascular disease. we will continue with Lisinopril 20 mg orally at bedtime. 4. Hyperlipidemia. we will continue with Lipitor 40 mg orally daily. 5. Diabetes mellitus type 2 uncontrolled with hyperglycemia secondary to steroids. Continue Levemir increased to 45 units at bedtime, continue NovoLog scheduled 7 units 3 times daily with meals, continue NovoLog scale before meals and at bedtime, Tradjenta 5 mg daily. Blood sugars are improved. 6. history of CVA and TIA with left carotid disease. we will continue with Lipitor 40 mg orally daily for secondary CVA prevention. 7. Atrial fibrillation/flutter. Beta kevin on hold. Heart rate is controlled. 8. Coagulopathy due to coumadin use and interaction with Levaquin and now Zithromax. we will continue to monitor daily, pharmacy dosing Coumadin. Status post vitamin K. Continue to monitor closely. 9. enlarged prostate. we will continue with Flomax 0.4 mg orally daily. 10. Vitamin d deficiency. we will continue with vitamin D supplement and we will check levels. 11. DVT prophylaxis. we will continue with Bilateral Knee-High Moshe Hose and we will resume coumadin in AM. 12. GI prophylaxis. we will continue with PPI. 13. Oral thrush. Continue nystatin swish and swallow. 14. Thrombocytopenia. Repeat blood work in the morning. Discharge plan: back to [facility] on Tuesday Impression and plan of care have been directed as dictated by the signing physician. Monie Melvin nurse practitioner acting as scribe for signing physician.
[2020-12-23 09:30] LABS: HCT 37.8 % (39.0-53.0); HGB 11.8 gm/dL (13.0-17.5); MCHC 31.1 g/dL (31.0-37.0); MCV 102.7 fL (80.0-100.0); Macrocytosis Slight; RBC 3.68 m/uL (4.30-5.90); RDW 14.8 % (11.5-15.5); WBC 22.5 k/uL (3.8-10.6)
[2020-12-23 09:34] LABS: Platelet Count 56 k/uL (150-450)
[2020-12-23 09:45] LABS: Albumin 2.3 g/dL (3.5-5.0); Calcium 7.2 mg/dL (8.4-10.2); Total Bilirubin 0.8 mg/dL (0.2-1.3)
[2020-12-23] MEDS: ERGOCALCIFEROL 1,250 MCG (50,000 IU) CAPSULE PO SCH (10:19)
[2020-12-23] MEDS: ASCORBIC ACID 500 MG TAB PO SCH (10:19)
[2020-12-23] MEDS: CHOLECALCIFEROL 25 MCG (1000 IU) TABLET PO SCH (10:19)
[2020-12-23] MEDS: ZINC SULFATE 220 MG CAP PO SCH (10:19)
[2020-12-23] MEDS: amLODIPine 5 MG TAB PO SCH (10:19)
[2020-12-23] MEDS: CYANOCOBALAMIN 500 MCG TAB PO SCH (10:20)
[2020-12-23] MEDS: FUROSEMIDE 40 MG TAB PO SCH (10:20)
[2020-12-23] MEDS: TAMSULOSIN 0.4 MG CAP.ER.24H PO SCH (10:20)
[2020-12-23] MEDS: LINAGLIPTIN 5 MG TABLET PO SCH (10:20)
[2020-12-23] MEDS: NON FORMULARY DRUG (Omega-3 Acid Ethyl Esters [Lovaza] 1 GM Capsule) PO SCH ×2 (10:20→16:39)
[2020-12-23] MEDS: COLCHICINE 0.6 MG EACH PO SCH (10:20)
[2020-12-23] MEDS: NYSTATIN 100,000 UNIT/ML SUSP 500,000 UNIT/5 ML CUP PO SCH ×3 (10:21→17:45)
[2020-12-23 12:00] LABS: Glucose,Whole Blood 112 mg/dL (75-99)
[2020-12-23 16:56] LABS: Glucose,Whole Blood 192 mg/dL (75-99)
[2020-12-23 17:03] VITALS: BP 115/59; PULSE 97; TEMP 98.6
[2020-12-23] MEDS ORDERED: WARFARIN 2.5 MG TAB PO ONE (18:00)
[2020-12-23] MEDS ORDERED: INSULIN DETEMIR (LEVEMIR) 100 UNIT/ML SYR SQ SCH (21:00)
== END 2020-12-23 19:02 | DRG 177 ==
LOC: EC 12:59 → 3SCARD 15:29
PROVIDERS: ADMIT Internal Medicine; ATTEND Internal Medicine
PROC: 5A0955A Assistance with Respiratory Ventilation, Greater than 96 Consecutive Hours, High Flow/Velocity Cannula (ICD-10-PCS; principal; 2020-12-08)
PROC: 05HD33Z Insertion of Infusion Device into Right Cephalic Vein, Percutaneous Approach (ICD-10-PCS; 2020-12-17 13:30)
DX: U07.1 COVID-19 (principal); J12.82 Pneumonia due to coronavirus disease 2019; J96.01 Acute respiratory failure with hypoxia; N17.0 Acute kidney failure with tubular necrosis; I48.19 Other persistent atrial fibrillation; I48.92 Unspecified atrial flutter; F20.0 Paranoid schizophrenia; I13.0 Hypertensive heart and chronic kidney disease with heart failure and stage 1 through stage 4 chronic kidney disease, or unspecified chronic kidney disease; B37.0 Candidal stomatitis; J44.0 Chronic obstructive pulmonary disease with (acute) lower respiratory infection; I50.32 Chronic diastolic (congestive) heart failure; D69.6 Thrombocytopenia, unspecified; I27.20 Pulmonary hypertension, unspecified; E11.22 Type 2 diabetes mellitus with diabetic chronic kidney disease; E11.51 Type 2 diabetes mellitus with diabetic peripheral angiopathy without gangrene; E11.65 Type 2 diabetes mellitus with hyperglycemia; F01.50 Vascular dementia, unspecified severity, without behavioral disturbance, psychotic disturbance, mood disturbance, and anxiety; Z79.4 Long term (current) use of insulin; N18.31 Chronic kidney disease, stage 3a; Z66 Do not resuscitate; I08.0 Rheumatic disorders of both mitral and aortic valves; N40.1 Benign prostatic hyperplasia with lower urinary tract symptoms; N39.498 Other specified urinary incontinence; E55.9 Vitamin D deficiency, unspecified; K21.9 Gastro-esophageal reflux disease without esophagitis; R26.9 Unspecified abnormalities of gait and mobility; R79.1 Abnormal coagulation profile; T45.515A Adverse effect of anticoagulants, initial encounter; I25.10 Atherosclerotic heart disease of native coronary artery without angina pectoris; E78.5 Hyperlipidemia, unspecified; I65.22 Occlusion and stenosis of left carotid artery; E87.5 Hyperkalemia; M19.90 Unspecified osteoarthritis, unspecified site; T38.0X5A Adverse effect of glucocorticoids and synthetic analogues, initial encounter; T46.4X5A Adverse effect of angiotensin-converting-enzyme inhibitors, initial encounter; R77.8 Other specified abnormalities of plasma proteins; Z79.01 Long term (current) use of anticoagulants; Z79.899 Other long term (current) drug therapy; Z91.048 Other nonmedicinal substance allergy status; Z85.828 Personal history of other malignant neoplasm of skin; Z96.643 Presence of artificial hip joint, bilateral; Z96.651 Presence of right artificial knee joint; Z86.73 Personal history of transient ischemic attack (TIA), and cerebral infarction without residual deficits; Z87.01 Personal history of pneumonia (recurrent); Z98.890 Other specified postprocedural states; Z82.49 Family history of ischemic heart disease and other diseases of the circulatory system; Z83.3 Family history of diabetes mellitus
CPT/HCPCS: 36410; 36415; 71045; 71046; 76937; 80048; 80053; 80162; 81003; 82306; 82550; 83605; 83615; 83735; 83880; 84132; 84484; 85025; 85027; 85379; 85610; 86140; 87040; 87324; 93005; 93306; 94640; 94760; 99285